=== PATIENT | male | born 1965 | race Caucasian/White ===

== ENCOUNTER → 2017-09-02 | Outpatient (CLI) | payer OTHER ==
[2017-09-02 17:52] LABS: URINE APPEARANCE CLEAR (CLEAR); URINE BILIRUBIN NEG (NEG); URINE COLOR YELLOW; URINE EPITHELIAL CELL AUTO 0-5 /lpf (0-5); URINE NITRITE NEG (NEG); URINE SPECIFIC GRAVITY 1.007 (1.000-1.030); UROBILINOGEN NEG (NEG); ZZUR CULT IF INDIC CLEAN CATCH NO
[2017-09-02 17:59] LABS: MANUAL MICROSCOPIC REQUIRED? NO; REVIEW REQ? NO
[2017-09-02 18:03] LABS: CREATININE, URINE 24.1 mg/dl; URINE TOTAL PROTEIN < 5.0 mg/dl (0-11.9)
== END | disposition home or self-care (01) ==
LOC: C.LAB1850 17:03
PROVIDERS: ATTEND Internal Medicine Nephrology
DX: R33.9 Retention of urine, unspecified (principal)

== ENCOUNTER 2020-04-09 06:11 | Inpatient (IN) ==
--- NOTE | 2020-03-24 14:48 | PAT Medication Instructions ---
Medication Instructions Date of Service March 24, 2020 Home Medications Medication Instructions Recorded blood sugar diagnostic #400 ea 07/16/19 aspirin 81 mg tablet,delayed release 81 mg PO QAM cholecalciferol (vitamin D3) 50 mcg (2,000 unit) capsule 2,000 units PO QAM cyclobenzaprine 5 mg tablet 5 mg PO TID PRN finasteride 5 mg tablet 5 mg PO QPM glucagon (human recombinant) 1 mg solution for injection 1 mg IM DIRECTED PRN lisinopril 40 mg tablet 40 mg PO QAM ammonium lactate 12 % topical cream 1 appln TOPICAL BID PRN ascorbic acid (vitamin C) 1,000 mg tablet 1,000 mg PO QAM insulin glargine [Lantus U-100 Insulin] 22 units SQ PM insulin lispro [Humalog U-100 Insulin] 50 units SQ AC levothyroxine 112 mcg PO 0200 Continue as directed levothyroxine 112 mcg PO 0200 STOP taking 24 hours before surgery ammonium lactate 12 % topical cream 1 appln TOPICAL BID PRN DO NOT take the morning of surgery insulin lispro [Humalog U-100 Insulin] 50 units SQ AC ascorbic acid (vitamin C) 1,000 mg tablet 1,000 mg PO QAM lisinopril 40 mg tablet 40 mg PO QAM cyclobenzaprine 5 mg tablet 5 mg PO TID PRN cholecalciferol (vitamin D3) 50 mcg (2,000 unit) capsule 2,000 units PO QAM Take morning of surgery With a small sip of water, OTHERWISE NOTHING TO EAT OR DRINK AFTER MIDNIGHT: glucagon (human recombinant) 1 mg solution for injection 1 mg IM DIRECTED PRN (if needed) aspirin 81 mg tablet,delayed release 81 mg PO QAM Take evening before surgery insulin lispro [Humalog U-100 Insulin] 50 units SQ AC insulin glargine [Lantus U-100 Insulin] 22 units SQ PM glucagon (human recombinant) 1 mg solution for injection 1 mg IM DIRECTED PRN (if needed) cyclobenzaprine 5 mg tablet 5 mg PO TID PRN (if needed) finasteride 5 mg tablet 5 mg PO QPM Other Notes If you have any questions please call us at [phone] or [phone] or [phone] or [phone]
--- NOTE | 2020-03-25 10:32 | Anesthesiology Consultation ---
Date of Service March 25, 2020 Assessment & Plan (1) Encounter for pre-operative examination: Chart Review Chart Review: Acceptable Risk for Surgery (Covid testing three days prior to surgery ) and Patient seen in Pre Admission Testing -FH of pseudocholinesterase deficiency- pt treated in the past as he has the deficiency and sux should be avoided Surgeon informed of hyperglycemia - Hgb A1C 8.1 (which is average glucose in 180s). Will leave to surgeon's discretion whether patient can proceed or not with surgery- okay from anesthesia standpoint and will check BSG AM of surgery. 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 Wears mask when around people but not usually around others. Did educate patient on Covid testing three days prior to surgery and to follow up with surgeon on this. Educated patient on importance of quarantine and social distancing both for himself and household members once Covid testing done until surgery. Teaching & Discussion Pre-Anesthesia Teaching/Discussion Notes: Instructed NPO after midnight before surgery,except medications with 15 cc of water. Medication instructions provided according to the [facility] guidelines. History Surgery Operation Date: 04/09/20 10:05 Proposed Procedures p L5-S1 Decompression Fusion, Spinal Cord Monitoring - Km Ribeiro, Height/Weight Height: 5 ft 10 in Weight: 83.3 kg Allergies Allergy/AdvReac Type Severity Reaction Status Date / Time succinylcholine Allergy Severe FAMILY HX Verified 03/17/20 10:48 SEE BELOW Iodinated Contrast Media Allergy Intermediate Vomiting Verified 03/17/20 10:48 morphine Allergy Intermediate Vomiting Verified 03/17/20 10:48 Medications Home Medications Medication Instructions Recorded Confirmed Last Taken blood sugar diagnostic #400 ea 07/16/19 01/29/20 Unknown aspirin 81 mg tablet,delayed 81 mg PO QAM 07/25/19 03/17/20 Unknown release cholecalciferol (vitamin D3) 50 2,000 units PO QAM cap 07/25/19 03/17/20 Unknown mcg (2,000 unit) capsule cyclobenzaprine 5 mg tablet 5 mg PO TID PRN tab 07/25/19 03/17/20 Unknown finasteride 5 mg tablet 5 mg PO QPM tab 07/25/19 03/17/20 Unknown glucagon (human recombinant) 1 mg 1 mg IM DIRECTED PRN 07/25/19 03/17/20 Unknown solution for injection insulin syringe-needle U-100 0.3 #10 ea 07/25/19 01/29/20 Unknown mL 31 gauge x 5/16" lisinopril 40 mg tablet 40 mg PO QAM #90 tab 07/25/19 03/17/20 Unknown ammonium lactate 12 % topical cream 1 appln TOPICAL BID PRN #1 gm 01/29/20 03/17/20 Unknown ascorbic acid (vitamin C) 1,000 mg 1,000 mg PO QAM tab 01/29/20 03/17/20 Unknown tablet insulin glargine [Lantus U-100 22 units SQ PM 03/17/20 03/17/20 Unknown Insulin] insulin lispro [Humalog U-100 50 units SQ AC 03/17/20 03/17/20 Unknown Insulin] levothyroxine 112 mcg PO 0200 03/17/20 03/17/20 Unknown Past Medical History Medical History Degenerative disc disease Diabetes mellitus type 1 Stable per patient GERD (gastroesophageal reflux disease) HX- stable and controlled Hyperlipidemia Hypertension Hypothyroidism Osteoarthritis Solitary right kidney Functioning well per patient - Stage II CKD Exercise / Class Metabolic Activity II 4-5 Yardwork/Stairs/Walk up hill (one flight of stairs - no chest pain or SOB ) Past Family History Family History Grandfather (Maternal) Heart disease Grandfather (Paternal) Heart disease Grandmother (Maternal) Diabetes Heart disease Family history of reaction to anesthesia PT'S GRANDMOTHER STOPPED BREATHING WITH SUCCINYCHOLINE DURING A PROCEDURE Grandmother (Paternal) Heart disease Uncle Prostate cancer Diabetes Past Surgical History Surgical History History of carpal tunnel repair BILAT History of cataract surgery BILAT History of cholecystectomy History of colonoscopy History of esophagogastroduodenoscopy (EGD) 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 History of Herson fundoplication Past Anesthesia History No Hx of Anesthesia Complications (PT TREATED PSEUDOCHOLINESTERASE DEFICIENT DUE TO FH) and Pseudocholinesterase Deficiency (FH- GRANDMOTHER) History of PONV No Hx of PONV and No Hx of Motion Sickness Social History Smoking Status: Former smoker Do You Dip or Chew Tobacco: No Smoking End Date: 2 YRS AGO Hx Alcohol Use: Yes alcohol intake frequency: holidays/special occasions only Hx Substance Use: No substance use type: does not use Review of Systems Mild allergy issues - environmental Hx of sleep study- no JONI Patient denies chest pain, shortness of breath, dyspnea on exertion, cough, wheezing, palpitations. No hx of seizures, stroke, HI, apnea/snoring. No hx of blood clots or blood transfusions Physical Exam Vital Signs VITALS BP 133/76 P 68 TEMP 97.9 SP02 99% RESP 16 Constitutional no acute distress ENMT Mouth: no chipped teeth Thyromental Distance: > or= 3.5 Finger Breadths (4.0) Mallampati Class: II Denies missing teeth Neck neck extension not limited Respiratory normal respiratory effort; no respiratory distress Auscultation: lungs clear to auscultation bilaterally; no wheezes Cardiovascular Rate/Rhythm: regular rate and regular rhythm Heart Sounds: no murmur Vessels: no carotid bruit Musculoskeletal Spine: no pain with cervical ROM Neurologic moves all extremities Psychiatric Orientation: alert Testing Laboratory Results 03/25/20 10:44 03/25/20 10:44 PT 10.7 Seconds (9.0-12.0) 03/25/20 10:44 INR 1.0 (0.9-1.1) 03/25/20 10:44 APTT 25.6 Seconds (21.0-31.0) 03/25/20 10:44 Hemoglobin A1c 8.1 % (4.5-5.6) H 03/25/20 10:44 Urine Color Yellow 03/25/20 10:44 Urine Appearance Clear (Clear) 03/25/20 10:44 Urine pH 6.0 (4.5-7.5) 03/25/20 10:44 Ur Specific [place] 1.015 (1.000-1.030) 03/25/20 10:44 Urine Protein Negative (Negative) 03/25/20 10:44 Urine Glucose (UA) 3+ (Negative) H 03/25/20 10:44 Urine Ketones Negative (Negative) 03/25/20 10:44 Urine Nitrite Negative (Negative) 03/25/20 10:44 Ur Leukocyte Esterase Negative (Negative) 03/25/20 10:44 Blood Type O Positive 03/25/20 10:44 Antibody Screen NEGATIVE 03/25/20 10:44 Electrocardiogram Date: 03/25/20 Findings: + NSR @ (64) Early repolarization Chest X-Ray Date: 03/25/20 Findings: + NAD
--- NOTE | 2020-03-25 11:15 | XRay Report ---
XR chest Pre-admission PA/Lat CLINICAL HISTORY: Preoperative evaluation. COMPARISON STUDY: No previous studies for comparison. FINDINGS: Lung volumes are normal. Lungs are clear. There is no pneumothorax or pleural effusion. Car diac size is normal. Mediastinal contours are normal. There is no evidence for pulmonary edema. IMPRESSION: No acute cardiopulmonary findings. ACT 112: Negative or not required by law. Electronically signed by: Radhames Magana M.D. 03/25/2020 11:14 AM
[2020-03-25 12:07] LABS: Basophils # (auto) 0.04 K/uL (0-0.2); Basophils % (auto) 0.5 %; Eosinophils # (auto) 0.35 K/uL (0-0.5); Eosinophils % (auto) 4.7 %; Hematocrit (blood only) 43.4 % (42-52); Hemoglobin 14.5 g/dL (14.0-18.0); Immature Granulocytes # (auto) 0.03 K/uL (0.00-0.02); Immature Granulocytes % (auto) 0.4 %; Lymphocytes # (auto) 1.79 K/uL (1.2-3.4); Lymphocytes % (auto) 24.1 %; Mean Corpuscular Hemoglobin 30.4 pg (25-34); Mean Corpuscular Hgb Conc 33.4 g/dL (32-36); Mean Platelet Volume 11.6 fL (7.4-10.4); Monocytes # (auto) 0.78 K/uL (0.11-0.59); Monocytes % (auto) 10.5 %; Neutrophils # (auto) 4.43 K/uL (1.4-6.5); Neutrophils % (auto) 59.8 %; Platelet Count 236 K/uL (130-400); RDW Coefficient of Variation 13.7 % (11.5-14.5); RDW Standard Deviation 45.6 fL (36.4-46.3); Red Blood Count 4.77 M/uL (4.7-6.1); White Blood Count 7.42 K/uL (4.8-10.8)
[2020-03-25 12:08] LABS: Appearance Urine Clear (Clear); Bilirubin Urine Negative (Negative); Blood Urine Negative (Negative); Color Urine Yellow; Glucose Urine UA 3+ (Negative); Ketones Urine Negative (Negative); Leukocyte Esterase Urine Negative (Negative); Nitrite Urine Negative (Negative); Protein Urine Negative (Negative); Specific Gravity Urine 1.015 (1.000-1.030); Urobilinogen Urine Negative (Negative)
[2020-03-25 12:18] LABS: Partial Thromboplastin Ratio 0.9; Partial Thromboplastin Time 25.6 Seconds (21.0-31.0); Prothrombin Time 10.7 Seconds (9.0-12.0)
[2020-03-25 12:20] LABS: Estimated Average Glucose 186 mg/dl; Hemoglobin A1C 8.1 % (4.5-5.6)
[2020-03-25 12:31] LABS: BUN Creatinine Ratio 12.3 (10-20); Calcium 9.1 mg/dl (8.5-10.1); Creatinine Clr Calc Pharmacy 76.7 ml/min; Est GFR (African American) 85.6; Est GFR (Non-African American) 73.8; Potassium 4.5 mmol/L (3.5-5.1)
[2020-03-25 12:43] LABS: Beta-Hydroxybutyrate 2.28 mg/dl (0.2-2.81)
--- NOTE | 2020-03-25 17:09 | Electrocardiogram Report ---
Test Reason : Blood Pressure : / mmHG Vent. Rate : 064 BPM Atrial Rate : 064 BPM P-R Int : 134 ms QRS Dur : 088 ms QT Int : 378 ms P-R-T Axes : 070 060 056 degrees QTc Int : 389 ms Normal sinus rhythm Early repolarization Normal ECG No previous ECGs available Confirmed by Chino Atkinson ([id number]) on 03/25/2020 5:09:39 PM Referred By: Km Ribeiro Confirmed By:Chino Atkinson
[~2020-04-09 06:11] MED LIST: ACETAMINOPHEN 500 MG TAB PO SCH; CEFAZOLIN 2000MG 2,000 MG/15 ML SYR IV SCH; CeleBREX 200 MG CAP PO SCH; GABAPENTIN 600 MG DOSE PO SCH; LR 15ML/HR IV SCH
[2020-04-09] MEDS ORDERED: PROPOFOL IV EMULSION 10 MG/ML 20 ML VIAL IV ONE (06:40)
[2020-04-09] MEDS ORDERED: DEXAMETHASONE SOD INJ 4 MG/ML VIAL ONE (06:40)
[2020-04-09] MEDS ORDERED: LIDOCAINE HCL 2% 2 ML VIAL/AMP(20MG/ML) INFIL ONE (06:40)
[2020-04-09] MEDS ORDERED: GLYCOPYRROLATE 0.2 MG/ML VIAL ONE (06:40)
[2020-04-09] MEDS ORDERED: NEOSTIGMINE METHYLSULFATE 5 MG/5 ML SYR ONE (06:40)
[2020-04-09] MEDS ORDERED: ONDANSETRON INJ 2 MG/ML 2 ML VIAL ONE (06:40)
[2020-04-09] MEDS ORDERED: fentaNYL citrate 100 MCG/2 ML VIAL ONE ×2 (06:41)
[2020-04-09] MEDS ORDERED: MIDAZOLAM HCL 1 MG/ML 2ML VIAL ONE (06:41)
[2020-04-09] MEDS ORDERED: HYDROmorphone INJ 2 MG/ML SYR/VIAL ONE (06:41)
[2020-04-09] MEDS ORDERED: BACITRACIN INJ 50,000 UNIT VIAL ONE (07:03)
[2020-04-09] MEDS ORDERED: BUPIVACAINE/EPINEPHRINE 0.25% 1:200,000 30 ML VIAL ONE (07:03)
[2020-04-09] MEDS ORDERED: INSULIN ASPART PER UNIT SC STA (07:04)
[2020-04-09] MEDS ORDERED: INSULIN ASPART PER UNIT ONE (07:07)
[2020-04-09] MEDS ORDERED: PROMETHAZINE HCL 6.25 MG in SODIUM CHLORIDE 0.9% 50 ML IV PRN (07:14)
[2020-04-09] MEDS ORDERED: ePHEDrine sulfate 50 MG/ML AMP IV PRN (07:14)
[2020-04-09] MEDS ORDERED: ONDANSETRON INJ 2 MG/ML 2 ML VIAL IV PRN ×2 (07:14→11:14)
[2020-04-09] MEDS ORDERED: HYDROmorphone INJ 2 MG/ML SYR/VIAL IV PRN (07:14)
[2020-04-09] MEDS ORDERED: fentaNYL citrate 100 MCG/2 ML VIAL IV PRN (07:14)
[2020-04-09] MEDS ORDERED: ATROPINE SULFATE 0.1 MG/ML 10ML SYR IV PRN (07:14)
--- NOTE | 2020-04-09 07:34 | History & Physical Bridge Note ---
Date of Service April 09, 2020 History & Physical Bridge Note I have examined the patient, reviewed the History & Physical and in the interval since the performance of the History & Physical I have noted the following changes of clinical significance: no changes noted
--- NOTE | 2020-04-09 07:35 | History & Physical Report ---
Date of Service April 09, 2020 Assessment & Plan (1) Neurogenic claudication due to lumbar spinal stenosis: L5-S1 decompression fusion Present on Admission?: Yes History of Present Illness Chief Complaint: Back and leg pain Primary Care Provider: Bonifacio Caputo This is a 55-year-old male who presents with chronic persistent back and leg pain. Failing extensive course of nonoperative care is here for surgical invention. Allergies Allergy/AdvReac Type Severity Reaction Status Date / Time succinylcholine Allergy Severe FAMILY HX Verified 04/09/20 06:40 SEE BELOW Iodinated Contrast Media Allergy Intermediate Vomiting Verified 04/09/20 06:40 morphine Allergy Intermediate Vomiting Verified 04/09/20 06:40 meperidine [From Demerol] AdvReac Intermediate hallicinati Verified 04/09/20 07:18 ons Home Medications Home Medications Medication Instructions Recorded Confirmed Type blood sugar diagnostic #400 ea 07/16/19 01/29/20 Rx aspirin 81 mg tablet,delayed 81 mg PO QAM 07/25/19 04/09/20 History release cholecalciferol (vitamin D3) 50 2,000 units PO QAM cap 07/25/19 04/09/20 History mcg (2,000 unit) capsule cyclobenzaprine 5 mg tablet 5 mg PO TID PRN tab 07/25/19 04/09/20 History finasteride 5 mg tablet 5 mg PO QPM tab 07/25/19 04/09/20 History lisinopril 40 mg tablet 40 mg PO QAM #90 tab 07/25/19 04/09/20 History ammonium lactate 12 % topical cream 1 appln TOPICAL BID PRN #1 gm 01/29/20 04/09/20 History ascorbic acid (vitamin C) 1,000 mg 1,000 mg PO QAM tab 01/29/20 04/09/20 History tablet insulin glargine [Lantus U-100 22 units SQ PM 03/17/20 04/09/20 History Insulin] insulin lispro [Humalog U-100 5 units SQ AC 03/17/20 04/09/20 History Insulin] levothyroxine 112 mcg PO 0200 03/17/20 04/09/20 History glucagon (human recombinant) 1 mg 1 mg IM DIRECTED PRN #1 ea 03/31/20 04/09/20 Rx solution for injection insulin syringe-needle U-100 0.3 #400 ea 03/31/20 Rx mL 31 gauge x 5/16" Glucosamine 2 tab PO DAILY 04/09/20 04/09/20 History Past Med/Surg History Medical History Degenerative disc disease Diabetes mellitus type 1 Stable per patient GERD (gastroesophageal reflux disease) HX- stable and controlled Hyperlipidemia Hypertension Hypothyroidism Osteoarthritis Solitary right kidney Functioning well per patient - Stage II CKD Surgical History History of carpal tunnel repair BILAT History of cataract surgery BILAT History of cholecystectomy History of colonoscopy History of esophagogastroduodenoscopy (EGD) 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 History of Herson fundoplication Family History Grandfather (Maternal) Heart disease Grandfather (Paternal) Heart disease Grandmother (Maternal) Diabetes Heart disease Family history of reaction to anesthesia PT'S GRANDMOTHER STOPPED BREATHING WITH SUCCINYCHOLINE DURING A PROCEDURE Grandmother (Paternal) Heart disease Uncle Prostate cancer Diabetes Social History (Updated 01/30/20 @ 17:30 by Jacinto Jamison PA-C) Preferred Language: Greenlandic Communication Ability: Effective Underwater Hunter Trapper Required: No Beliefs That Will Affect Care: None Current Living Situation: Spouse Other Information That Helps Us Care for You: No Feels Safe at Home: Yes Safety Concerns: Feels Safe At This Time Smoking Status: Former smoker Do You Dip or Chew Tobacco: No ; Smoking End Date: 2 YRS AGO ; Second Hand Exposure: Yes ; Tobacco Cessation Education Requ ested by Patient: No Hx Alcohol Use: Yes Hx Substance Use: No Physical Exam Physical Exam: Patient is alert and oriented neurologically intact. Heart regular rate and rhythm. Lungs clear to auscultation. Results & Data Vital Signs (Past 12 Hours) Vital Signs Temp Pulse Resp BP Pulse Ox 04/09/20 07:19 36.6 C 70 18 154/86 H 99
[2020-04-09] MEDS ORDERED: FLOSEAL HEMOSTATIC MATRIX 10ML TOP ONE (08:26)
--- NOTE | 2020-04-09 09:21 | Operative Report ---
Post Operative Report Pre & Post Diagnosis Operation Date: 04/09/20 07:45 Pre-Op Diagnosis: LUMBAR SPINAL STENOSIS W NEUROGENIC CLAUDICATION Post-Op Diagnosis: LUMBAR SPINAL STENOSIS W NEUROGENIC CLAUDICATION I identified the patient and participated in the time-out.: Yes Procedure Operation Date: 04/09/20 07:45 Actual Procedures #1 decompression with bilateral medial facetectomies foraminotomies L5-S1. #2 posterior spinal fusion L5-S1 #3 posterior instrumentation L5-S1. #4 interbody fusion L5-S1. #5 placement peek interbody cage 11 x 26 mm L5-S1. #6 placement locally harvested morselized autograft in the posterior lateral gutters. #7 placement infuse collagen sponge, master graft in the posterior gutters and osteopenia by space. Surgeon Km Ribeiro, Acid Changer Angie Suárez Estimated Blood Loss 50 Findings Consistent with Post-Op Diagnosis Specimens None Indications This is a 55-year-old male presents with worsening back and leg symptoms. After failing extensive course of nonoperative care is here for surgical invention. Description of Procedure Patient was met with identified informed consent obtained. Patient was then taken to the operative suite underwent intubation placed in a prone position Korey table on top Edy frame. All bony prominences well-padded eyes inspected to ensure no external pressure placed upon the. This point the lumbar spine was prepped and draped in normal sterile fashion. Sharp dissection with the assistance of Bovie cautery was performed until exposing the lamina and transverse process of L5 and sacral ala bilaterally. From a caudal cephalad fashion complete laminectomy of L5 including bilateral medial facetectomies and foraminotomies were performed to address significant neural compression. Pedicle screws were then placed in L4-5 and S1 levels bilaterally with assistance of fluoroscopy and appropriately sized mick placed. By way of a transforaminal approach on the right complete discectomy of L5-S1 was performed endplates curetted to subcortical bleeding bone and a 11 x 26 mm peek cage filled with osteo-bone graft tapped in position. The rods were then locked into final position bilaterally. The transverse processes of L5 and sacral ala burred to subcortical bleeding bone. Infuse collagen sponge mass graft local autograft was then placed in the posterior gutters. 15 round TRAN drain inserted. The incision was then closed with 1 Vicryl in the fascia 2-0 Vicryl subcutaneously and 4 Monocryl for final skin closure. Steri-Strip sterile dressing was placed. Patient will continue to PACU stable addition. Please note spinal cord monitoring was utilized that the procedure no changes noted. Lastly Angie Suárez was present at the entire procedure involved the patient positioning complex portions of the surgery and final skin closure. I attest to the content of the Intraoperative Record and any orders documented therein. Any exceptions are noted below.
--- NOTE | 2020-04-09 10:04 | Fluoroscopy Report ---
LUMBAR SPINE, INTRAOPERATIVE FLUOROSCOPY HISTORY: L5-S1 decompression and fusion. FLUOROSCOPY TIME: 21 seconds. FINDINGS: Intraoperative fluoroscopy was provided for the lumbar spine. 2 fluoroscopic spot images we re obtained. Posterior decompression fusion at L5-S1 with pedicle screws and rods. The hardware appea rs intact. IMPRESSION: Fluoroscopy provided for a L5-S1 posterior decompression and fusion. ACT 112: Negative or not required by law. Electronically signed by: Russell Alamo M.D. 04/09/2020 10:03 AM
--- NOTE | 2020-04-09 10:29 | Anesthesiology Progress Note ---
Date of Service April 09, 2020 Anesthesia Post Procedure Vital Signs Vital Signs: Temp Pulse Pulse Resp BP BP Pulse Ox 04/09/20 10:20 36.8 C 102 H 14 142/78 H 97 04/09/20 10:10 95 H 16 146/77 H 97 04/09/20 10:00 96 H 15 132/71 98 04/09/20 09:50 93 H 14 142/73 H 99 04/09/20 09:40 36.8 C 91 H 16 141/73 H 99 04/09/20 07:19 36.6 C 70 18 154/86 H 99 Pain Intensity Right Leg: Pain Intensity: 4 Transfer of Care Handoff Completed per policy Notes Mental Status: alert / awake / arousable Patient Amnestic to Procedure: Yes Nausea / Vomiting: adequately controlled Pain: adequately controlled Airway Patency, RR, SpO2: stable & adequate BP & HR: stable & adequate Hydration State: stable & adequate Anesthetic Complications: no major complications apparent
[2020-04-09] MEDS: SODIUM CHLORIDE 0.9% 1000ML 1,000 ML IV SCH ×2 (11:00→20:37)
[2020-04-09] MEDS ORDERED: LORazepam 0.5 MG TAB PO PRN (11:14)
[2020-04-09] MEDS ORDERED: PROMETHAZINE HCL 12.5 MG in SODIUM CHLORIDE 0.9% 50 ML IV PRN (11:14)
[2020-04-09] MEDS ORDERED: NALOXONE HCL 0.4 MG/1 ML VIAL/CARP IV PRN (11:14)
[2020-04-09] MEDS ORDERED: METOCLOPRAMIDE HCL INJ 5 MG/ML 2 ML VIAL IV PRN (11:14)
[2020-04-09] MEDS ORDERED: LORazepam 0.5 MG/1 ML VIAL IV PRN (11:14)
[2020-04-09] MEDS ORDERED: DO NOT ADMINISTER PNEUMOCOCCAL VACCINE PRN (11:14)
[2020-04-09] MEDS ORDERED: DO NOT ADMINISTER FLU VACCINE PRN (11:14)
[2020-04-09] MEDS ORDERED: ACETAMINOPHEN 500 MG TAB PO PRN (11:14)
[2020-04-09] MEDS ORDERED: OXYCODONE HCL IR 5 MG TAB (IMMEDIATE RELEASE) PO PRN (11:14)
[2020-04-09] MEDS ORDERED: bisacodyL 10 MG SUPP PR PRN (11:14)
[2020-04-09] MEDS ORDERED: ACETAMINOPHEN 1,000 MG/100 ML VIAL IV PRN (11:14)
[2020-04-09] MEDS ORDERED: CYCLOBENZAPRINE HCL 5 MG TAB PO PRN (11:14)
[2020-04-09] MEDS ORDERED: ALUMINUM/MAGNESIUM SUSP 30 ML UDC PO PRN (11:14)
[2020-04-09] MEDS ORDERED: SOD PHOSPHATE/SOD BIPHOSPHATE ENEMA 132 ML BTL PR PRN (11:14)
[2020-04-09] MEDS ORDERED: ONDANSETRON 4 MG OD TAB PO PRN (11:14)
[2020-04-09] MEDS ORDERED: FAMOTIDINE 20 MG TAB PO PRN (11:14)
[2020-04-09] MEDS ORDERED: MAGNESIUM HYDROXIDE SUSP 30 ML UDC PO PRN (11:14)
[2020-04-09] MEDS ORDERED: TRAMADOL HCL 50 MG TABLET PO PRN (11:14)
[2020-04-09] MEDS ORDERED: HYDROmorphone INJ 0.5 MG/0.5 ML SYR IV PRN (11:14)
[2020-04-09] MEDS ORDERED: PHARMACY GLYCEMIC MGMT CONSULT PRN (11:25)
[2020-04-09] MEDS ORDERED: GLUCOSE 10 TABS/TUBE PO PRN (11:45)
[2020-04-09] MEDS ORDERED: DEXTROSE 50% 50 ML SYRINGE IV PRN (11:45)
[2020-04-09] MEDS ORDERED: GLUCOSE 40% GEL 15 GM TUBE PO PRN (11:45)
[2020-04-09] MEDS ORDERED: GLUCAGON FOR INJ 1 MG VIAL IM PRN (11:45)
[2020-04-09] MEDS ORDERED: INSULIN GLARGINE SOLOSTAR 100 UNITS/ML 3 ML PEN SC ONE (12:00)
[2020-04-09] MEDS ORDERED: INSULIN ASPART 100 UNITS/ML 3 ML PEN SC SCH (12:00)
[2020-04-09] MEDS: KETOROLAC 30 MG/ML VIAL IV SCH ×3 (12:35→23:26)
--- NOTE | 2020-04-09 13:55 | Pharmacy Report ---
Glycemic Control Consultation - Date of Service April 09, 2020 - Scope Scope: Glycemic Pharmacist consulted for glycemic control and to write orders per [facility] inpatient glycemic control protocol. - Objective Weight: 82.2 kg Accuchecks BSG (last 24hrs): HbA1c: Hemoglobin A1c 8.1 % (4.5-5.6) H 03/25/20 10:44 - Recent Pertinent Medications Outpatient Anti-diabetic Regimen: * Lantus 22 units SQ QPM * Humalog 5 units AC + CR: * 1 unit : 5 gm CHO for breakfast * 1 unit : 10 gm CHO for lunch * 1 unit : 15 gm CHO for supper * A1c = 8.1 % from 03/25/20, up from 7.6% in December 2019 Risk Factors for Insulin Resistance: * Steroids: * Dexamethasone 8 mg IV preop * Recent Surgery: * POD #0 L5-S1 decompression & fusion * Diet: * T2DM - Assessment & Plan Assessment & Plan: ASSESSMENT: * 55 yo M admitted secondary to degenerative disc disease to undergo a spinal decompression and fusion * PMHx significant for T1DM, HLD, HTN, osteoarthritis, CKD-II * A1c not at goal as an outpatient * Patient gave himself 20 units of Lantus the evening prior to surgery. Admi ssion BSG was 334 mg/dL with a repeat of 324 mg/dL. Patient received 8 units of Novolog x 1 pre-op. * Immediate postop BSG was 251 mg/dL. He was ordered a T1DM/Clear liquid diet for lunch. No further steroid doses expected. Lunchtime BSG was 291 mg/dL. Gave patient 1.2 x his home basal dose with lunch to attempt to control steroid-induced hyperglycemia in a type 1 diabetic. Started with an aggressive bolus insulin regimen of CF/CR based on weight and stress of 3. * Instructed RN to take pt's BSG at 1400 which would be 2 hours after Lantus and Novolog were given to ensure patient's BSG is trending down. If BSG is not trending down, may need to treat hyperglycemia with IV insulin boluses. * Will continue with every 4 hour accuchecks from the time being. Instructed RN to give patient CF coverage with check at 1600 and then when he eats dinner she does not have to check BSG and can just administer CR insulin. * Will attempt to transition patient back to QPM basal insulin starting tomorrow. * ADA & AACE recommend a goal blood sugar range 140-180 mg/dl for the majority of critically ill & non-critically ill patients. However, more stringent targets may be selected in individual cases. Will utilize more stringent goal of 110-140mg/dl based on patient age & comorbidities. Additionally, tighter glycemic control is warranted to facilitate wound/infection healing. PLAN FOR INPATIENT GLYCEMIC CONTROL: * Basal insulin * Lantus 25 units SQ x 1 * Bolus insulin * NovoLog per scale ACHS or Q6hrs while NPO * Goal Range: Low 110 mg/dL - High 140 mg/dL * Correction Factor: 20 mg/dL/unit * Nutritional / Prandial insulin per carb ratio of 1 unit per 7 grams CHO consumed * Please note that the plan above was derived based on current level of insulin resistance and hospital stress. These recommendations are appropriate for inpatient admission only. Plan of care upon discharge will need to be reassessed to avoid potential outpatient hypo/hyperglycemia. Thank you.
[2020-04-09] MEDS ORDERED: INSULIN HUMAN REGULAR PER UNIT 8 UNITS in SYRINGE 7.92 ML IV STA (14:17)
[2020-04-09] MEDS: CEFAZOLIN 2000MG 2,000 MG/15 ML SYR IV SCH ×2 (16:07→23:26)
[2020-04-09] MEDS ORDERED: SEVERE STRESS LEVEL ONE (16:17)
[2020-04-09] MEDS ORDERED: INSULIN PROTOCOL GOAL RANGE ONE (16:17)
[2020-04-09] MEDS ORDERED: INSULIN HUMAN REGULAR IV BOLUS 3 UNITS in SYRINGE 0 ML IV ONE (16:45)
[2020-04-09] MEDS ORDERED: INSULIN REGULAR 250 UNITS in SODIUM CHLORIDE 0.9% 247.5 ML IV SCH (16:45)
[2020-04-09] MEDS: INSULIN ASPART 100 UNITS/ML 3 ML PEN SC SCH ×2 (18:33→20:36)
[2020-04-09] MEDS: DOCUSATE SODIUM/SENNA 50/8.6MG TAB PO SCH (21:34)
[2020-04-09] MEDS: FINASTERIDE 5 MG TAB PO SCH (21:34)
--- NOTE | 2020-04-09 21:49 | Hospitalist Consultation ---
Date of Consultation April 09, 2020 Assessment & Plan (1) Neurogenic claudication due to lumbar spinal stenosis: Status post L5-S1 spinal fusion performed by Dr. Ribeiro earlier today. Pain management as per surgery (2) Vision changes: Patient appears to be still waking up from anesthesia. No eye pain. Generalized bilateral vision blurring without other focal neurology. Suspect this is secondary to his anesthesia and asked his nurse to call ane sthesiology to assess. If not felt secondary to anesthesia or does not improve then will get labs. No abdominal pain, nausea, hypotension, shortness of breath or increased respiratory rate to suggest DKA and glucose at relatively normal level for him. (3) Solitary right kidney: Monitor BMP with AM labs. IV fluids as per surgery. (4) Type 1 diabetes mellitus: Pharmacy consulted for glycemic management per Dr Ribeiro Patient reports taking reduced dose of Lantus (20 units last night) HbA1C 8.1 [03/25/20, no need to repeat] Noted hyperglycemia in similar range to pre-op labs without ketones present in urine or blood In his log book he tends to fluctuate wildly between 60-360 with just recent measurements over the past 2 weeks. (5) Hypothyroidism: No prior TSH available but unlikely current measurement would be relevant given surgery today. Continue levothyroxine 112 mcg PO daily (6) Hypertension: Continue lisinopril 40mg PO QAM as long as BP stable overnight (7) DVT prophylaxis: per surgery Thank you for the consult. We will continue to see while he is admitted. History of Present Illness Reason for Consultation: Routine medical management Attending Physician: Km Ribeiro, DO History of Present Illness Nate Hopson is a 55 year old male with type 1 diabetes mellitus and solitary kidney here for elective spinal fusion performed by Dr Ribeiro due to lumbar spinal stenosis with neurogenic claudication. When seen the patient was recently out of surgery and still waking up from the anesthesia. Some concern over his vision after coming back from surgery. He does report a history of hitting his head on the right side and having occasional flashes of light on this side, no known diabetic retinopathy as per the patient. He does have a history of cataracts in both eyes (one for near, one for far vision). Currently he feels bilateral vision blurring in both eyes, no eye pain, no sudden increase in floaters or flashing lights, no vision loss. Feels his eyesight is slowly improving. No issues prior to the surgery. Allergies Allergy/AdvReac Type Severity Reaction Status Date / Time succinylcholine Allergy Severe FAMILY HX Verified 04/09/20 06:40 SEE BELOW Iodinated Contrast Media Allergy Intermediate Vomiting Verified 04/09/20 06:40 morphine Allergy Intermediate Vomiting Verified 04/09/20 06:40 meperidine [From Demerol] AdvReac Intermediate hallicinati Verified 04/09/20 07:18 ons Home Medications Home Medications Medication Instructions Recorded Confirmed Type blood sugar diagnostic #400 ea 07/16/19 01/29/20 Rx aspirin 81 mg tablet,delayed 81 mg PO QAM 07/25/19 04/09/20 History release cholecalciferol (vitamin D3) 50 2,000 units PO QAM cap 07/25/19 04/09/20 History mcg (2,000 unit) capsule cyclobenzaprine 5 mg tablet 5 mg PO TID PRN tab 07/25/19 04/09/20 History finasteride 5 mg tablet 5 mg PO QPM tab 07/25/19 04/09/20 History lisinopril 40 mg tablet 40 mg PO QAM #90 tab 07/25/19 04/09/20 History ammonium lactate 12 % topical cream 1 appln TOPICAL BID PRN #1 gm 01/29/20 04/09/20 History ascorbic acid (vitamin C) 1,000 mg 1,000 mg PO QAM tab 01/29/20 04/09/20 History tablet insulin glargine [Lantus U-100 22 units SQ PM 03/17/20 04/09/20 History Insulin] insulin lispro [Humalog U-100 5 units SQ AC 03/17/20 04/09/20 History Insulin] levothyroxine 112 mcg PO 0200 03/17/20 04/09/20 History glucagon (human recombinant) 1 mg 1 mg IM DIRECTED PRN #1 ea 03/31/20 0 04/09/20 Rx solution for injection insulin syringe-needle U-100 0.3 #400 ea 03/31/20 Rx mL 31 gauge x 5/16" Glucosamine 2 tab PO DAILY 04/09/20 04/09/20 History oxycodone 5 mg PO Q6H PRN #20 tab 04/10/20 Rx tramadol 50 mg PO Q6H PRN #30 tab 04/10/20 Rx Patient History Medical History Degenerative disc disease Diabetes mellitus type 1 Stable per patient GERD (gastroesophageal reflux disease) HX- stable and controlled Hyperlipidemia Hypertension Hypothyroidism Osteoarthritis Solitary right kidney Functioning well per patient - Stage II CKD Surgical History History of carpal tunnel repair BILAT History of cataract surgery BILAT History of cholecystectomy History of colonoscopy History of esophagogastroduodenoscopy (EGD) 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 History of Herson fundoplication Family History Grandfather (Maternal) Heart disease Grandfather (Paternal) Heart disease Grandmother (Maternal) Diabetes Heart disease Family history of reaction to anesthesia PT'S GRANDMOTHER STOPPED BREATHING WITH SUCCINYCHOLINE DURING A PROCEDURE Grandmother (Paternal) Heart disease Uncle Prostate cancer Diabetes Social History (Updated 01/30/20 @ 17:30 by Jacinto Jamison PA-C) Preferred Language: Samoan Communication Ability: Effective Conservation Or Heritage Architect Required: No Beliefs That Will Affect Care: None Current Living Situation: Spouse Other Information That Helps Us Care for You: No Feels Safe at Home: Yes Safety Concerns: Feels Safe At This Time Smoking Status: Former smoker Do You Dip or Chew Tobacco: No ; Smoking End Date: 2 YRS AGO ; Second Hand Exposure: Yes ; Tobacco Cessation Education Requ ested by Patient: No Hx Alcohol Use: Yes Hx Substance Use: No Review of Systems Review of Systems: All systems reviewed & are unremarkable except as noted in HPI & below Physical Exam Constitutional: well developed and well nourished; no acute distress Eyes: PERRL, conjunctivae normal, anicteric sclerae EOM intact bilaterally (Without diplopia); + abnormal visual field confrontation (General blurring of vision bilaterally) ENMT: external ear and nose normal, oropharynx normal Neck: trachea midline Respiratory: normal respiratory effort, lungs clear to auscultation Cardiovascular: RRR, no murmur, no edema Gastrointestinal (Abdomen): normal bowel sounds, soft, nontender, no hepatosplenomegaly Musculoskeletal: no cyanosis or clubbing, extremities motor strength 5/5 Skin: no rashes, warm and dry Neurologic: moves all extremities and awake; no focal motor deficits and not confused Motor/Sensory: no tremor and no pronator drift Cranial Nerves: PERRL, EOM intact bilaterally, normal facial strength, tongue midline and no nystagmus Psychiatric: A+Ox3, euthymic affect Results & Data Results & Data ([facility]) Vital Signs (Past 12 Hours) Vital Signs Temp Pulse Pulse Resp BP BP Pulse Ox 04/09/20 13:13 36.3 C L 97 H 15 141/76 H 97 04/09/20 12:05 36.6 C 103 H 18 126/66 98 04/09/20 11:25 36.4 C L 85 16 132/68 91 04/09/20 11:00 36.4 C L 89 14 149/75 H 95 04/09/20 10:45 97 H 12 156/70 H 97 04/09/20 10:30 87 13 144/83 H 97 04/09/20 10:20 36.8 C 102 H 14 142/78 H 97 04/09/20 10:10 95 H 16 146/77 H 97 04/09/20 10:00 96 H 15 132/71 98 04/09/20 09:50 93 H 14 142/73 H 99 04/09/20 09:40 36.8 C 91 H 16 141/73 H 99 04/09/20 07:19 36.6 C 70 18 154/86 H 99 PG Care Time/CCT Total # of Minutes Spent Total Time Spent with Patient: Total time spent is greater than 50% in coordination of care (as documented) at patient's floor/unit and/or counseling patient: Coding Level of Care Code 26186 Inpt Consult Level 5 Diagnoses Neurogenic claudication due to lumbar spinal stenosis M48.062 Vision changes H53.9 Solitary right kidney Q60.0 Type 1 diabetes mellitus E10.9 Hypothyroidism E03.9 Hypertension I10 DVT prophylaxis Z29.9
[2020-04-10] MEDS: CARBOHYDRATES FOR HYPOGLYCEMIA PO PRN ×5 (01:45→23:25)
[2020-04-10 05:33] LABS: Basophils # (auto) 0.01 K/uL (0-0.2); Basophils % (auto) 0.1 %; Eosinophils # (auto) 0.05 K/uL (0-0.5); Eosinophils % (auto) 0.4 %; Hematocrit (blood only) 37.9 % (42-52); Immature Granulocytes # (auto) 0.03 K/uL (0.00-0.02); Immature Granulocytes % (auto) 0.2 %; Lymphocytes # (auto) 1.65 K/uL (1.2-3.4); Lymphocytes % (auto) 13.5 %; Mean Corpuscular Hemoglobin 28.9 pg (25-34); Mean Corpuscular Hgb Conc 31.7 g/dL (32-36); Mean Corpuscular Volume 91.3 fL (80-100); Monocytes # (auto) 1.12 K/uL (0.11-0.59); Monocytes % (auto) 9.2 %; Neutrophils # (auto) 9.37 K/uL (1.4-6.5); Neutrophils % (auto) 76.6 %; Platelet Count 192 K/uL (130-400); RDW Coefficient of Variation 13.8 % (11.5-14.5); RDW Standard Deviation 46.4 fL (36.4-46.3); Red Blood Count 4.15 M/uL (4.7-6.1); White Blood Count 12.23 K/uL (4.8-10.8)
[2020-04-10] MEDS ORDERED: AD VAN IV SCH (05:45)
[2020-04-10] MEDS ORDERED: SODIUM CHLOR 0.9% IV SCH (05:45)
[2020-04-10] MEDS: LEVOTHYROXINE SODIUM 112 MCG TABLET PO SCH (05:54)
[2020-04-10] MEDS: KETOROLAC 30 MG/ML VIAL IV SCH (05:55)
[2020-04-10] MEDS: POLYETHYLENE (MIRALAX) 17 GM PACK PO SCH ×4 (05:55→23:29)
[2020-04-10 05:58] LABS: BUN Creatinine Ratio 13.2 (10-20); Calcium 8.2 mg/dl (8.5-10.1); Creatinine Clr Calc Pharmacy 82.7 ml/min; Est GFR (African American) 93.7; Est GFR (Non-African American) 80.8; Potassium 4.2 mmol/L (3.5-5.1)
[2020-04-10] MEDS: HYDROmorphone INJ 1 MG/ML SYRINGE IV PRN ×2 (08:01→20:29)
[2020-04-10] MEDS: INSULIN ASPART 100 UNITS/ML 3 ML PEN SC SCH ×4 (08:08→21:04)
[2020-04-10] MEDS ORDERED: GLUCOSAMINE PO SCH (09:00)
[2020-04-10] MEDS: ASCORBIC ACID 500 MG TAB PO SCH (09:12)
[2020-04-10] MEDS: lisinopriL 40 MG TAB PO SCH (09:12)
[2020-04-10] MEDS: CHOLECALCIFEROL 1,000 UNITS 25 MCG TAB PO SCH (09:12)
[2020-04-10] MEDS: ASPIRIN 81 MG ECTAB PO SCH (09:12)
[2020-04-10] MEDS ORDERED: HYDROCODONE/ACETAMOPHEN 5/325MG TAB PO PRN (09:48)
[2020-04-10] MEDS ORDERED: INSULIN ASPART 100 UNITS/ML 3 ML PEN SC ONE (10:15)
[2020-04-10] MEDS ORDERED: INSULIN GLARGINE SOLOSTAR 100 UNITS/ML 3 ML PEN SC ONE (10:15)
--- NOTE | 2020-04-10 11:46 | Orthopedic Progress Note ---
Date of Service April 10, 2020 Assessment & Plan (1) Neurogenic claudication due to lumbar spinal stenosis: At this time we will continue physical therapy monitor his TRAN output anticipate possible discharge home tomorrow. Present on Admission?: Yes Admission and Anticipated Discharge Date Admission Date: April 09, 2020 Subjective Back pain controlled leg symptoms markedly improved. Physical Exam Physical Exam: Patient is ambulating without difficulty. Skin strength testing. Results & Data ([facility]) Vital Signs (Past 12 Hours) Vital Signs Temp Pulse Resp BP Pulse Ox 04/10/20 07:24 37.0 C 75 16 147/81 H 98 04/10/20 02:43 36.8 C 92 H 16 125/69 97
--- NOTE | 2020-04-10 11:53 | Pharmacy Report ---
Pharmacy Glycemic Short Note 2 - Date of Service April 10, 2020 - Glycemic Short BSG Results (Last 24 hours): 04/09/20 04/09/20 04/09/20 12:10 14:10 16:08 Glucose POC Glucose 291 H 308 H* 335 H* 04/09/20 04/09/20 04/09/20 16:09 18:20 19:31 Glucose POC Glucose 373 H* 308 H* 294 H 04/09/20 04/09/20 04/09/20 20:31 21:28 22:22 Glucose POC Glucose 202 H 171 H 161 H 04/09/20 04/09/20 04/10/20 23:20 23:39 00:44 Glucose POC Glucose 104 H 119 H 78 04/10/20 04/10/20 04/10/20 01:45 02:03 02:44 Glucose POC Glucose 63 L* 86 207 H 04/10/20 04/10/20 04/10/20 03:50 04:45 05:23 Glucose 149 H POC Glucose 235 H 162 H 04/10/20 04/10/20 04/10/20 05:46 06:45 07:03 Glucose POC Glucose 136 H 63 L* 58 L* 04/10/20 04/10/20 07:22 09:58 Glucose POC Glucose 91 232 H OUTPATIENT ANTIDIABETIC REGIMEN: * Lantus 22 units SQ QPM * Humalog 5 units AC + CR: * 1 unit : 5 gm CHO for breakfast * 1 unit : 10 gm CHO for lunch * 1 unit : 15 gm CHO for supper * A1c = 8.1 % from 03/25/20, up from 7.6% in December 2019 ASSESSMENT: 04/10 * 55 yo M who is POD #1 s/p spinal decompression and fusion. * 1400 BSG from yesterday was elevated at 308 mg/dL so gave the patient an 8 unit IV insulin bolus. Repeat at 1600 was 373 mg/dL so patient was given 3 unit IV insulin bolus and initiated on insulin drip per protocol by 2nd shift pharmacist. Patient used 32.5 units of insulin from the drip over a 12 hour span which equates to ~ 65 units/day total. However, patient had low BSGs overnight requiring the drip to be shut off several times. * BSG dropped to 63 mg/dL at 0145 then drip was shut off for 2 hours and repeat at 0345 was 207 mg/dL. At 0645, patient's BSG dropped to 63 mg/dL and drip was discontinued by myself at this time. Patient was about to eat an early breakfast and his repeat BSG was 91 mg/dL. I instructed the RN to cover only the patient's CHO for the meal, not to subtract any correctional, and to repeat BSG in 2 hours at 1000. * At 1000, patient's BSG was 232 mg/dL. I entered a stressed Lantus dose of 30 units (~1.4 x home dose) and instructed RN to correct this BSG only and repeat BSG in 2 hours at 1200. * Patient is a very brittle type 1 diabetic. I have tightened his novolog parameters for lunchtime meal. BSG at 1200 was 161 mg/dL, coming down nicely but now afraid patient may start stacking novolog. * Dexamethasone dose from 04/09 should be almost cleared by now so will change patient's accuchecks to ACHS and add overnight checks to make sure patient doesn't have nocturnal hypoglycemia. Of note, patient does have IV dexamethasone 8 mg ordered for tomorrow morning (04/11). Plan to cover this with 25 units of NPH tomorrow morning and resume patient's home basal dose at HS. 04/09 * 55 yo M admitted secondary to degenerative disc disease to undergo a spinal decompression and fusion * PMHx significant for T1DM, HLD, HTN, osteoarthritis, CKD-II * A1c not at goal as an outpatient * Patient gave himself 20 units of Lantus the evening prior to surgery. Admission BSG was 334 mg/dL with a repeat of 324 mg/dL. Patient received 8 units of Novolog x 1 pre-op. * Immediate postop BSG was 251 mg/dL. He was ordered a T1DM/Clear liquid diet for lunch. No further steroid doses expected. Lunchtime BSG was 291 mg/dL. Gave patient 1.2 x his home basal dose with lunch to attempt to control st eroid-induced hyperglycemia in a type 1 diabetic. Started with an aggressive bolus insulin regimen of CF/CR based on weight and stress of 3. * Instructed RN to take pt's BSG at 1400 which would be 2 hours after Lantus and Novolog were given to ensure patient's BSG is trending down. If BSG is not trending down, may need to treat hyperglycemia with IV insulin boluses. * Will continue with every 4 hour accuchecks from the time being. Instructed RN to give patient CF coverage with check at 1600 and then when he eats dinner she does not have to check BSG and can just administer CR insulin. PLAN FOR INPATIENT GLYCEMIC CONTROL: * Transitioned off insulin drip this AM secondary to hypoglycemia * Basal insulin * Lantus 30 units SQ x 1 today * NPH 25 units (~ 0.3 units/kg) SQ x 1 on 04/11 AM to cover for steroid- induced hyperglycemia * Bolus insulin * NovoLog per scale ACHS or Q6hrs while NPO * Goal Range: Low 110 mg/dL - High 140 mg/dL * Correction Factor: 20 mg/dL/unit * Nutritional / Prandial insulin per carb ratio of 1 unit per 7 grams CHO consumed PLAN FOR DISCHARGE: * A1c = 8.1% * Pending at this time
--- NOTE | 2020-04-10 16:29 | Hospitalist Progress Note ---
Date of Service April 10, 2020 Assessment & Plan (1) Neurogenic claudication due to lumbar spinal stenosis: Status post L5-S1 spinal fusion performed by Dr. Ribeiro earlier today. Pain management as per surgery (2) Vision changes: Resolved, likely secondary to anesthesia (3) Solitary right kidney: Monitor BMP with AM labs. IV fluids as per surgery. (4) Type 1 diabetes mellitus: Pharmacy consulted for glycemic management per Dr Ribeiro HbA1C 8.1 [03/25/20, no need to repeat] (5) Hypothyroidism: Continue levothyroxine 112 mcg PO daily (6) Hypertension: Intermittently hypertensive Continue lisinopril 40mg PO QAM (7) Acute blood loss anemia: Hgb 12 following surgery, continue to monitor (8) DVT prophylaxis: per surgery Thank you for the consult. Medicine will sign off. Please call with any questions or concerns Admission and Anticipated Discharge Date Admission Date: April 09, 2020 Subjective Mr. Hopson is having some pain today but is ambulating the halls. He otherwise denies complaints ROS Constitutional: no chills, aches, sweats or fever Respiratory: no sob,cough, sputum, or wheezing Cardiac: no chest pain, palpitations, edema, orthopnea or lightheadedness GI: no abdominal pain, nausea, vomiting, diarrhea or constipation : no dysuria or hesitancy Extremities: no joint pain or weakness Skin: no rash All other systems reviewed and negative Physical Exam Physical Exam: General: no distress Eyes: normal inspection, PERLL Respiratory: chest non tender, clear to auscultation, normal breath sounds, no respiratory distress, no accessory muscle use Cardiac: regular rate and rhythm, no rub or gallop, no murmur, no edema, no jvd GI/: active bowel sounds, no abd pain or tenderness, soft, non distended Extremities: normal range of motion, normal strength, non tender Neuro/Psych: alert and oriented x 3, normal mood and affect Skin: normal color, dry Results & Data Results & Data ([facility]) Vital Signs (Past 12 Hours) Vital Signs Temp Pulse Resp BP Pulse Ox 04/10/20 15:36 36.4 C L 73 20 173/83 H 98 04/10/20 07:24 37.0 C 75 16 147/81 H 98 PG Care Time/CCT Total # of Minutes Spent Total Time Spent with Patient: Total time spent is greater than 50% in coordination of care (as documented) at patient's floor/unit and/or counseling patient: Coding Level of Care Code 98007 Subseq Hosp Care Lvl 2 Diagnoses Neurogenic claudication due to lumbar spinal stenosis M48.062 Vision changes H53.9 Solitary right kidney Q60.0 Type 1 diabetes mellitus E10.9 Hypothyroidism E03.9 Hypertension I10 Acute blood loss anemia D62 DVT prophylaxis Z29.9
[2020-04-10] MEDS: FINASTERIDE 5 MG TAB PO SCH (20:37)
[2020-04-10] MEDS: DOCUSATE SODIUM/SENNA 50/8.6MG TAB PO SCH (20:37)
[2020-04-11] MEDS: INSULIN ASPART 100 UNITS/ML 3 ML PEN SC SCH ×4 (00:08→13:01)
[2020-04-11] MEDS: HYDROmorphone INJ 1 MG/ML SYRINGE IV PRN (03:38)
[2020-04-11] MEDS: POLYETHYLENE (MIRALAX) 17 GM PACK PO SCH ×2 (05:20→13:00)
[2020-04-11] MEDS: LEVOTHYROXINE SODIUM 112 MCG TABLET PO SCH (05:20)
[2020-04-11] MEDS: HYDROCODONE/ACETAMINOPHEN 10/325 TAB PO PRN ×2 (07:40→15:31)
[2020-04-11] MEDS: CHOLECALCIFEROL 1,000 UNITS 25 MCG TAB PO SCH (08:49)
[2020-04-11] MEDS: ASCORBIC ACID 500 MG TAB PO SCH (08:49)
[2020-04-11] MEDS: ASPIRIN 81 MG ECTAB PO SCH (08:49)
[2020-04-11] MEDS: lisinopriL 40 MG TAB PO SCH (08:49)
[2020-04-11] MEDS ORDERED: DEXAMETHASONE SOD PHOSPHATE 8 MG in SYRINGE 0 ML IV SCH (09:00)
[2020-04-11] MEDS ORDERED: NovoLIN-N (NPH) PER UNIT CHARGE SQ ONE (09:00)
--- NOTE | 2020-04-11 11:32 | Pharmacy Report ---
Pharmacy Glycemic Short Note 2 - Date of Service April 11, 2020 - Glycemic Short BSG Results (Last 24 hours): 04/10/20 04/10/20 04/10/20 12:00 15:42 15:43 POC Glucose 161 H 42 L* 48 L* 04/10/20 04/10/20 04/10/20 16:04 20:34 23:20 POC Glucose 76 94 62 L* 04/10/20 04/11/20 04/11/20 23:40 03:39 08:18 POC Glucose 86 133 H 246 H OUTPATIENT ANTIDIABETIC REGIMEN: * Lantus 22 units SQ QPM * Humalog 5 units AC + CR: * 1 unit : 5 gm CHO for breakfast * 1 unit : 10 gm CHO for lunch * 1 unit : 15 gm CHO for supper * A1c = 8.1 % from 03/25/20, up from 7.6% in December 2019 ASSESSMENT: 04/11 * POD #2. Lantus dose from yesterday provided patient with too much basal insulin as he was hypoglycemic and then had rebound hyperglycemia throughout the entire day. Required 105 gm CHO to treat hypoglycemia yesterday with subsequent checks being elevated. * Received 62 units total yesterday: 30 basal + 32 bolus * BSGs ranged: 42 - 235 mg/dL * Patient started on IV dexamethasone 8 mg daily started this morning. Will cover daily dexamethasone with [] units of NPH every morning. Will resume patients home dose of Lantus 22 units HS this evening. * Carb ratio was adjusted secondary to hypoglycemia yesterday afternoon. Believe hypoglycemia will resolve now that patient is not basal heavy. Will tighten carb ratio to previous amount. 04/10 * 55 yo M who is POD #1 s/p spinal decompression and fusion. * 1400 BSG from yesterday was elevated at 308 mg/dL so gave the patient an 8 unit IV insulin bolus. Repeat at 1600 was 373 mg/dL so patient was given 3 unit IV insulin bolus and initiated on insulin drip per protocol by 2nd shift pharmacist. Patient used 32.5 units of insulin from the drip over a 12 hour span which equates to ~ 65 units/day total. However, patient had low BSGs overnight requiring the drip to be shut off several times. * BSG dropped to 63 mg/dL at 0145 then drip was shut off for 2 hours and repeat at 0345 was 207 mg/dL. At 0645, patient's BSG dropped to 63 mg/dL and drip was discontinued by myself at this time. Patient was about to eat an early breakfast and his repeat BSG was 91 mg/dL. I instructed the RN to cover only the patient's CHO for the meal, not to subtract any correctional, and to repeat BSG in 2 hours at 1000. * At 1000, patient's BSG was 232 mg/dL. I entered a stressed Lantus dose of 30 units (~1.4 x home dose) and instructed RN to correct this BSG only and repeat BSG in 2 hours at 1200. * Patient is a very brittle type 1 diabetic. I have tightened his novolog parameters for lunchtime meal. BSG at 1200 was 161 mg/dL, coming down nicely but now afraid patient may start stacking novolog. * Dexamethasone dose from 04/09 should be almost cleared by now so will change patient's accuchecks to ACHS and add overnight checks to make sure patient doesn't have nocturnal hypoglycemia. Of note, patient does have IV dexamethasone 8 mg ordered for tomorrow morning (04/11). Plan to cover this with 25 units of NPH tomorrow morning and resume patient's home basal dose at HS. PLAN FOR INPATIENT GLYCEMIC CONTROL: * Basal insulin * Lantus 22 units SQ HS * NPH 25 units (~ 0.3 units/kg) SQ x QAM to cover for steroid-induced hyper glycemia * Bolus insulin - tighten * NovoLog per scale ACHS or Q6hrs while NPO * Goal Range: Low 110 mg/dL - High 140 mg/dL * Correction Factor: 15 mg/dL/unit * Nutritional / Prandial insulin per carb ratio of 1 unit per 5 grams CHO consumed PLAN FOR DISCHARGE: * A1c = 8.1% * Pending at this time
--- NOTE | 2020-04-11 14:27 | Discharge Summary ---
Date of Service April 11, 2020 Admission HPI Per Admitting Provider This is a 55-year-old male who presents with chronic persistent back and leg pain. Failing extensive course of nonoperative care is here for surgical invention. Principal Diagnosis Lumbar spinal stenosis with radiculopathy Discharge Data Allergies Allergy/AdvReac Type Severity Reaction Status Date / Time succinylcholine Allergy Severe FAMILY HX Verified 04/09/20 06:40 SEE BELOW Iodinated Contrast Media Allergy Intermediate Vomiting Verified 04/09/20 06:40 morphine Allergy Intermediate Vomiting Verified 04/09/20 06:40 meperidine [From Demerol] AdvReac Intermediate hallicinati Verified 04/09/20 07:18 ons Consultations 04/09/20 11:14 Consult Case Management - Discharge Planning Routine Consult Hospitalist Routine Procedures Performed Operation Date: 04/09/20 07:45 Actual Procedures p L5-S1 Decompression Fusion, Spinal Cord Monitoring(Not Applicable) - Km Ribeiro DO Ordered Studies 04/09/20 07:45 FL fluoroscopy <1hr Routine FL lumbar spine 2-3V Routine Hospital Course (1) Neurogenic claudication due to lumbar spinal stenosis: Patient with lumbar decompression fusion tolerated this well was taken to the orthopedic floor possibly. Postop day 1 leg pain is improved ambulating well. Progressed the postop day #2. Excellent strength testing. TRAN drain decreasing probably. Subsequently discharged home. Discharge orders and instructions from the chart for further review. Total Time Total Time Spent Total Time Spent (In Minutes): 20 minutes Discharge Plan Discharge Items Patient Disposition: Home - Self-Care Reason For Visit: LUMBAR SPINAL STENOSIS W NEUROGENIC CLAUDICATION Discharge Diagnosis: Lumbar spinal stenosis with neurogenic claudication Activity: As commented below Non-emergency contact: Primary Care Provider Call non-emergency contact if: you have any medication questions Follow-up/Referrals: Bonifacio Caputo D.O. [Primary Care Provider] - Diet: Regular Addtl Attending Provider Instructions: ACTIVITY RECOMMENDATIONS: SELF CARE INSTRUCTIONS AFTER THORACIC/LUMBAR FUSIONS 1. You may walk to your tolerance. It is good exercise for your legs and back. Expect some back and intermittent leg aches and pains. 2. You may perform "counter-top" level activities (make a sandwich, nelson with a project, etc.). 3. No bending or lifting of more than 10 pounds or back twisting of any nature (roll like a log when turning in bed). 4. You may ride in a car for 20-30 minutes at a time. No driving until after your first visit with your doctor. 5. Frequent changes of position and restricting sitting to 30 minutes at a time will help limit the amount of back spasms and stiffness you may experience. 6. You may discontinue the use of ambulatory aids (cane, crutches, etc.) once your strength and confidence allow. 7. You may study abroad coordinator the shower and let water strike your incision when you arrive home at least once daily. Do not take a tub bath, sit in a hot tub or go into a swimming pool until after your first recheck in the office. SPECIAL CARE INSTRUCTIONS: VERY IMPORTANT TO READ AND REVIEW A. Your surgical incision has been closed with a cosmetic suture under the skin that will dissolve in about 6 weeks. In 14 days, you can use a pair of clean scissors and cut the suture that is left outside of the skin at the ends of your incision. 1. The small skin tapes can be removed 7 days after surgery if they have not fallen off by that point. 2. You may keep the wound open to air as much as possible to promote healing after post-op day number 5 unless told otherwise by your doctor. 3. If you think the wound looks like it is becoming infected (redness or worsening drainage) and/or you are experiencing fever, chill or worsening back pain and muscle spasms, contact the office so that we may evaluate you as soon as possible. B. Complications are uncommon, but please contact us if you have any signs or symptoms of: 1. wound infection (fever higher than 102.5 degrees F, redness, separation of wound, drainage, or increasing pain from the incision) 2. blood clots in legs (pain, swelling, redness and warmth in legs) 3. urinary tract infection (fever higher than 102.5 degrees F, burning upon urination or increased frequency of urination) 4. nerve problems (inability to walk on your toes or heels, numbness, loss of bowel or bladder control) 5. any other symptoms that concern you C. Please call the office at if you have any concerns or questions about your operation or recovery. D. No smoking! Smoking drastically decreases the chance of a solid fusion. E. Do not take any anti-inflammatory medications (Indocin, Advil, Motrin, Asp irin, Naprosyn, etc.) as these may inhibit the chance of a solid fusion. Tylenol is okay to take for pain. MANAGING PAIN AFTER SPINAL SURGERY 1. Narcotic medication is intended for short-term use and will be provided for surgical pain. Surgical pain usually lasts for a period of 4-6 weeks. Narcotic medication includes Percocet, Vicodin, Darvocet, Tylenol #3 or Lortab. 2. Longer-term pain is more appropriately treated with non-narcotic medication such as Tylenol ES. 3. Muscle spasm is not appropriately treated with narcotics. Muscle relaxers such as Soma, Flexeril or Skelaxin can be used along with Tylenol ES. 4. Remember that we all live with some "aches and pains". This is not unusual or uncommon after an injury or as we get older. a. Back pain is expected and may include muscle spasms for 4 to 6 weeks after surgery. The pain should gradually improve. If the pain worsens for no apparent reason, please contact the office. b. Intermittent leg pain may also be experienced and should not be concerned about unless it worsens for no apparent reason. If so, please contact the office. 5. We will provide appropriate medication within the normal guidelines of their prescribed use. We will also be very cautious and aware of potential abuse and extended duration of patients' medication needs. a. Pain medications are for your comfort and to assist with sleep and rest so that the tissue can heal. They are not provided in order to return to normal activity and should not be used through the day. To do so or worsening pain at night can result from ongoing tissue damage and development of tolerance to the prescribed medicine. 6. Please allow 2-3 days to process refills. Prescriptions will not be mailed but must be picked up at the office. FOLLOW UP VISIT: Keep your scheduled follow-up appointment. Any questions, please call the office at . Pending Studies at Discharge: No Stand-Alone Forms: My [employer], Opioid Pain Management, Smoking Cessation Medications and DC Order Prescriptions: New tramadol 50 mg tablet 50 mg PO Q6H PRN (Reason: pain, moderate) Qty: 30 RF: 0 hydrocodone-acetaminophen 5-325 mg tablet See Rx Instructions .ROUTE .COMPLEX PRN (Reason: pain) Qty: 20 RF: 0 Continued (DME) OneTouch Ultra Blue Test Strip strip See Dose Instructions .ROUTE .MEDSUPPLY Qty: 400 RF: 3 Glucagon Emergency Kit (human) 1 mg recon soln 1 mg IM DIRECTED PRN (Reason: Hypoglycemia) Qty: 1 RF: 3 (DME) insulin syringe-needle U-100 [BD Insulin Syringe Ultra-Fine] 0.3 mL 31 gauge x 5/16" syringe See Dose Instructions .ROUTE .MEDSUPPLY Qty: 400 RF: 3 aspirin [Adult Low Dose Aspirin] 81 mg tablet,delayed release (DR/EC) 81 mg PO QAM RF: 0 finasteride 5 mg tablet 5 mg PO QPM RF: 0 cyclobenzaprine 5 mg tablet 5 mg PO TID PRN (Reason: Muscle Spasm) RF: 0 lisinopril 40 mg tablet 40 mg PO QAM Qty: 90 RF: 0 cholecalciferol (vitamin D3) 2,000 unit capsule 2,000 units PO QAM RF: 0 ammonium lactate 12 % cream 1 appln topical BID PRN (Reason: Rash) Qty: 1 RF: 0 ascorbic acid (vitamin C) 1,000 mg tablet 1,000 mg PO QAM RF: 0 Lantus U-100 Insulin 100 unit/mL solution 22 units SQ PM RF: 0 insulin lispro [Humalog U-100 Insulin] 100 unit/mL solution 5 units SQ AC RF: 0 levothyroxine 112 mcg tablet 112 mcg PO 0200 RF: 0 Glucosamine 2 tab PO DAILY RF: 0 Discharge Orders: Discharge Order (Routine); Ordered 04/11/20 Ordered By: Km Mcclain/Other Patient Handouts: DVT Post Op Prevention Admission Data Admit Date/Time: 04/09/20 09:43 Attending Provider: Km Ribeiro Admit Provider: Km Ribeiro Primary Care Provider: Bonifacio Caputo. Other Providers: Volodymyr Enamorado Other Interventions: Discharge Summary Assessment (RN) Last Done: 04/11/20 14:20
[2020-04-11] MEDS ORDERED: INSULIN GLARGINE SOLOSTAR 100 UNITS/ML 3 ML PEN SC SCH (21:00)
--- NOTE | 2020-04-12 13:25 | Communication Note ---
Date of Service: April 12, 2020 Called Mr. Hopson today to follow up on blood sugars as he had a dose of dexamethasone the morning of his discharge. He is running 240s-300. He feels fine, no complaints. Paged [facility] and asked to advise patient on next steps. He will look over patient's information and then call the patient with recommendations.
== END 2020-04-11 16:30 | disposition home or self-care (01) | DRG 455 ==
LOC: ASU 06:11 → 3W 09:43

== ENCOUNTER 2023-01-07 10:14 | Inpatient (IN) ==
[2023-01-07] MEDS ORDERED: ACETAMINOPHEN 1,000 MG/100 ML VIAL IV STA (11:31)
[2023-01-07] MEDS ORDERED: ONDANSETRON INJ 2 MG/ML 2 ML VIAL IV STA (11:31)
[2023-01-07] MEDS ORDERED: MoRPHine SULFATE 10 MG/ML CARP/VIAL IV STA (11:31)
[2023-01-07] MEDS ORDERED: diazePAM 5 MG TABLET PO ONE (11:41)
[2023-01-07] MEDS ORDERED: SODIUM CHLORIDE 0.9% 1000ML 1,000 ML IV SCH ×2 (11:45→15:48)
[2023-01-07 12:53] LABS: Basophils # (auto) 0.05 K/uL (0-0.2); Basophils % (auto) 0.7 %; Eosinophils # (auto) 0.31 K/uL (0-0.50); Eosinophils % (auto) 4.5 %; Hematocrit (blood only) 50.3 % (42.0-52.0); Immature Granulocytes # (auto) 0.05 K/uL (0.01-0.20); Immature Granulocytes % (auto) 0.7 %; Lymphocytes # (auto) 1.95 K/uL (1.2-3.4); Lymphocytes % (auto) 28.3 %; Mean Corpuscular Hemoglobin 29.9 pg (25.0-34.0); Mean Corpuscular Hgb Conc 33.8 g/dL (32.0-36.0); Mean Corpuscular Volume 88.6 fL (80.0-100.0); Monocytes % (auto) 10.2 %; Neutrophils # (auto) 3.82 K/uL (1.40-6.50); Neutrophils % (auto) 55.6 %; Platelet Count 247 K/uL (130-400); RDW Coefficient of Variation 12.9 % (11.5-14.5); RDW Standard Deviation 42.1 fL (36.4-46.3); Red Blood Count 5.68 M/uL (4.70-6.10); White Blood Count 6.88 K/ul (4.8-10.8)
[2023-01-07 12:59] LABS: Albumin Globulin Ratio 1.4 (0.9-2); Albumin Level 4.3 gm/dl (3.4-5.0); BUN Creatinine Ratio 16.8 (10-20); Bilirubin,Total 0.7 mg/dl (0.2-1.0); Calcium 9.9 mg/dl (8.6-10.3); Creatinine Clr Calc Pharmacy 77.7 ml/min; Est GFR (African American) 88.2 ml/min; Est GFR (Non-African American) 76.1 ml/min; Magnesium 1.9 mg/dl (1.7-2.4); Potassium 4.4 mmol/L (3.5-5.1); Total Protein 7.3 gm/dl (6.0-8.3)
[2023-01-07 15:19] LABS: Appearance Urine Clear (Clear); Bilirubin Urine Negative (Negative); Blood Urine Negative (Negative); Color Urine Yellow; Glucose Urine UA Negative (Negative); Ketones Urine Negative (Negative); Leukocyte Esterase Urine Negative (Negative); Nitrite Urine Negative (Negative); Protein Urine Negative (Negative); Specific Gravity Urine 1.008 (1.000-1.030); Urobilinogen Urine Negative (Negative)
--- NOTE | 2023-01-07 15:30 | History & Physical Report ---
Date of Service January 07, 2023 Assessment & Plan (1) Lumbar disc herniation with radiculopathy: Plan: Assessment lumbar disc herniation with radiculopathy. Plan at this time the patient is undergone an MRI recently that demonstrates evidence of massive disc herniation L4-5 foraminal nature occupying the L4-5 foraminal on the left. He is well decompressed at the area of his previous surgery in 2019. At this time admit in the hospital for pain control attempt physical therapy for evaluation but strong suspect he is going to require surgical intervention. Would necessitate removal of the previous instrumentation L5-S1 aggressive facetectomy and discectomy at L4-5 to adequately decompress the root and fusion at this level. History of Present Illness Chief Complaint: Severe left leg pain. Primary Care Provider: Bonifacio Caputo This is a 57-year-old male who presents with marked plan status over the past several weeks. He was seen in the office earlier this week with complaints of severe left leg radiculopathy that radiates into the buttock and groin down the leg into the foot. Markedly limits his ability to stand and ambulate. He cannot find a comfortable position. The right lower extremity is at this time asymptomatic. He notes marked sensory changes to the left lower extremity and has difficulty walking his leg gives out on him. Allergies Allergy/AdvReac Type Severity Reaction Status Date / Time succinylcholine Allergy Severe FAMILY HX Verified 12/10/22 15:23 SEE BELOW Iodinated Contrast Media Allergy Intermediate Vomiting Verified 12/10/22 15:23 morphine Allergy Intermediate Vomiting Verified 12/10/22 15:23 meperidine [From Demerol] AdvReac Intermediate hallicinati Verified 12/10/22 15:23 ons Home Medications Medication Instructions Recorded Confirmed Type aspirin 81 mg tablet,delayed 81 mg PO QAM 07/25/19 01/07/23 History release (Adult Low Dose Aspirin) cholecalciferol (vitamin D3) 50 2,000 units PO QAM 07/25/19 01/07/23 History mcg (2,000 unit) capsule cyclobenzaprine 5 mg tablet 5 mg PO TID PRN Muscle Spasm 07/25/19 01/07/23 History lisinopril 40 mg tablet 40 mg PO QAM #90 tabs 07/25/19 01/07/23 History ascorbic acid (vitamin C) 1,000 mg 1,000 mg PO QAM 01/29/20 01/07/23 History tablet BD Insulin Syringe Ultra-Fine 0.3 #200 ea 01/21/21 12/10/22 Rx mL 31 gauge x 5/16" (insulin syringe-needle U-100) glucosamine-chondroitin 2 ea PO QAM 04/23/21 01/07/23 History insulin lispro 100 unit/mL 50 unit (0.5 mL) subcut DAILY #2 02/02/22 01/07/23 Rx subcutaneous solution (Humalog vials U-100 Insulin) finasteride 5 mg tablet 5 mg PO DAILY #90 tabs 02/18/22 01/07/23 Rx tadalafil 5 mg tablet (Cialis) 5 mg PO DAILY #90 tabs 02/18/22 01/07/23 Rx glucagon (human recombinant) 1 mg 1 mg IM DIRECTED PRN 06/08/22 01/07/23 Rx solution for injection Hypoglycemia #1 ea blood sugar diagnostic (OneTouch #400 ea 08/11/22 12/10/22 Rx Ultra Test strips) insulin glargine 100 unit/mL 23 unit (0.23 mL) subcut QPM 90 08/11/22 01/07/23 Rx subcutaneous solution (Lantus days #20.7 mL U-100 Insulin) ammonium lactate 12 % lotion 1 applic topical BID PRN Skin 12/10/22 01/07/23 History Irritation levothyroxine 125 mcg tablet 125 mcg PO DAILY #90 tabs 12/10/22 01/07/23 Rx hydrocodone 5 mg-acetaminophen 325 2 tab PO Q6H PRN pain #20 tabs 01/03/23 01/07/23 Rx mg tablet Past Med/Surg History Medical History BPH w urinary obs/LUTS Degenerative disc disease Diabetes mellitus type 1 Stable per patient GERD (gastroesophageal reflux disease) HX- stable and controlled Hyperlipidemia Hypertension Hypothyroidism Neurogenic claudication due to lumbar spinal stenosis Nocturia Osteoarthritis Severe back pain Solitary right kidney Functioning well per patient - Stage II CKD Surgical History History of carpal tunnel release of both wrists History of carpal tunnel repair BILAT History of cataract surgery BILAT History of cholecystectomy History of colonoscopy History of esophagogastroduodenoscopy (EGD) 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 History of Herson fundoplication Family History Grandfather (Maternal) Heart disease Grandfather (Paternal) Heart disease Grandmother (Maternal) Diabetes Heart disease Family history of reaction to anesthesia PT'S GRANDMOTHER STOPPED BREATHING WITH SUCCINYCHOLINE DURING A PROCEDURE Grandmother (Paternal) Heart disease Uncle Prostate cancer Diabetes Social History Smoking Status: Never smoker Cigarettes Per Day: QUIT 5 YRS AGO; Second Hand Exposure: No; Hx Alcohol Use: Yes Hx Substance Use: No Preferred Language: Sami Communication Ability: Effective Senior Billing Consultant Required: No Beliefs That Will Affect Care: None marital status: Current Living Situation: Spouse Feels Safe at Home: Yes Assistive Devices: None Physical Exam Physical Exam: On exam he is in obvious distress. He has significant tension signs with straight leg raising on the left contralateral signs on the right. He has sensory deficits to cold and light touch to the left lower extremity compared to the right. He has plus 5 out of 5 right plantarflexion dorsiflex extensor pollicis longus which is a 4+ on the left. Deep tendon reflexes diminished. Results & Data Results & Data Vital Signs (Past 12 Hours) Vital Signs Temp Pulse Resp BP Pulse Ox O2 Del Method 01/07/23 15:00 71 16 99 01/07/23 15:00 142/77 H 01/07/23 14:30 74 13 98 01/07/23 14:30 144/87 H 01/07/23 14:00 81 15 88 L 01/07/23 14:00 144/93 H 01/07/23 13:30 78 15 01/07/23 13:30 136/75 01/07/23 13:00 73 18 01/07/23 13:00 158/94 H 01/07/23 12:30 83 17 01/07/23 12:30 135/95 01/07/23 12:08 131/94 01/07/23 12:08 76 16 100 01/07/23 12:03 72 15 100 01/07/23 12:42 69 01/07/23 12:10 73 15 100 Room Air 01/07/23 10:20 36.1 C L 87 20 177/109 H 98 Room Air
[2023-01-07] MEDS ORDERED: ACETAMINOPHEN 500 MG TAB PO PRN (15:48)
[2023-01-07] MEDS ORDERED: ONDANSETRON INJ 2 MG/ML 2 ML VIAL IV PRN (15:48)
[2023-01-07] MEDS ORDERED: PROMETHAZINE HCL 12.5 MG in SODIUM CHLORIDE 0.9% 50 ML IV PRN (15:48)
[2023-01-07] MEDS ORDERED: NALOXONE HCL 0.4 MG/1 ML VIAL/CARP IV PRN (15:48)
[2023-01-07] MEDS ORDERED: METOCLOPRAMIDE HCL INJ 5 MG/ML 2 ML VIAL IV PRN (15:48)
[2023-01-07] MEDS ORDERED: MAGNESIUM HYDROXIDE SUSP 30 ML UDC PO PRN (15:48)
[2023-01-07] MEDS ORDERED: PHARMACY GLYCEMIC MGMT CONSULT PRN (15:48)
[2023-01-07] MEDS ORDERED: LORazepam 2 MG/1 ML VIAL IV PRN (15:48)
[2023-01-07] MEDS ORDERED: ACETAMINOPHEN 1,000 MG/100 ML VIAL IV PRN (15:48)
[2023-01-07] MEDS ORDERED: ONDANSETRON 4 MG OD TAB PO PRN (15:48)
[2023-01-07] MEDS ORDERED: HYDROmorphone INJ 0.5 MG/0.5 ML SYR IV PRN (15:48)
[2023-01-07] MEDS: oxyCODONE HCL IR 5 MG TAB (IMMEDIATE RELEASE) PO PRN ×2 (16:25→21:43)
[2023-01-07] MEDS: HYDROmorphone INJ 1 MG/ML SYRINGE IV PRN ×2 (17:18→21:04)
[2023-01-07] MEDS: INSULIN ASPART PER UNIT CHARGE SC SCH ×2 (17:54→21:08)
--- NOTE | 2023-01-07 18:17 | Hospitalist Consultation ---
Date of Consultation January 07, 2023 Assessment & Plan (1) Lumbar disc herniation with radiculopathy: -Pain control, perioperative abx, IV fluids, and DVT PPX per the primary team -The patient is currently afebrile, hemodynamically stable, and stable on RA -Was supposed to have lumbar spinal decompression with Dr. Ribeiro next week but his pain is too severe, was admitted by Dr. Ribeiro with possible surgery in the near future -Currently with LLE weakness and urinary retention requiring styles cath insertio n -Will order am CBC and CMP to follow -Thank you for allowing use to participate in the care of the patient, please reach out with any questions or concerns (2) Urinary retention: -Patient was unable to urinate down in the ED, was bladder scanned for 706 and styles cath was inserted -Patient does have a hx of BPH with urinary retention, currently on finasteride and daily Cialis for both erectile dysfunction and BPH -Continue styles cath for now, patient will need a voiding trial before discharge -Continue finasteride for now (3) Elevated LFTs: -Patient's AST at 177, ALT at 343, and alk phos of 181 -Total bili WNL, no abd pain, no jaundice -Patient denies consistent alcohol use, states he was previously told he had an enlarged liver -No signs of acute alcohol withdrawal -Will obtain alcohol level and acute hepatitis panel -Will wait to obtain US of the abdomen at this time as I do not think he would tolerate it with his current back pain/discomfort -Continue to monitor daily CMP (4) Type 1 diabetes mellitus: -Pharmacy glycemic consult placed by the ED -Continue to follow Pharmacy's orders (5) Hypothyroidism: -Continue levothyroxine (6) Hypertension: -Stable -Continue lisinopril (7) BPH w urinary obs/LUTS: -Continue styles cath and finasteride for now -If he fails his voiding trial then will need a Urology consult (8) Solitary right kidney: -Due to previous congenital defect -Renal function stable Plan The patient was discussed with Dr. Beaver at the time of the consult Supervising Physician Co-Signing Physician Notes I personally saw and examined the patient. I verified all mcclendon points and agree with Will Mendiola PA-C with the following exceptions and/or additions: 57 year old male who presents to the ER with acute n chronic worsening of his left leg radicular and back pain. Also having some weakness in his left leg. Medicine consulted for medical management. O/E Alert but drowsy, orientated x3, HS RRR, no murmurs, Chest CTAB, Abdo SNT A/P Lumbar disc herniation with radiculopathy - VTE/Pain/Bowel management per orthop edics. Recently started on gabapentin and in setting of benzodiazepine and opiate use would recommend we reduce this to 100mg PO TID. If planning on surgery recommend holding his aspirin. IV fluids switched from NSS to LR to avoid acidosis. Urine retention - styles catheter placed in the ER. suspect due to immobility, opiate use in setting of known BPH. Previously on tamsulosin but stopped due to dizziness and hypotension only while working which resolved after he stopped it. Willing to try this again to aid with eventual styles catheter removal but if he becomes dizzy consider stopping lisinopril. Continue Cialis and finasteride. Elevated LFTs - INR and repeat LFTs in AM. Hepatitis panel pending. Abnormal pattern for alcohol use. Consider US liver if not normalizing although currently unlikely to tolerate. Max dose of acetaminophen changed to 2000mg. Avoid NSAIDs. History of Present Illness Reason for Consultation: Post-op medical management Requesting Physician: Km Ribeiro DO Attending Physician: Dr. Andre Beaver History of Present Illness Nate is a 57 year old male with a PMH significant for DM I, hypothyroidism, HTN, BPH, former tobacco abuse, dyslipidemia, and chronic lumbar back pain with radiculopathy who presented to the [facility] ED on 01/07/23 at the recommendation of Dr. Ribeiro due to worsening low back pain with radiculopathy. Per chart review, the patient recent had an MRI of the lumbar spine which showed massive disc herniation L4-5 foraminal nature occupying the L4-5 foraminal on the left. His pain continued to progress and he called Dr. Ribeiro earlier today, Dr. Ribeiro instructed him to go to the ED for further evaluation. In the ED the patient was found to be afebrile, hemodynamically stable, and stable on RA. Labs were remarkable for a CBC WNL, stable Cr of 1.07 with glucose of 189, stable electrolytes, AST of 177, ALT of 343, alk phos of 181 and total bili WNL, negative UA and negative covid screen. We were consulted for medical management as the patient will likely be taken to the OR with Dr. Ribeiro during his admission for decompression and spinal fusion. At the time of the exam the patient was lying in bed in no acute distress. He states that he was originally scheduled for surgery with Dr. Ribeiro next Tuesday, however, his pain back has been so severe his daily quality of life has been severely reduced. He states that in the ED he was unable to urinate and they bladder scanned him prior to placing a styles cath. Per review of his chart, he was bladder scanned for 706 mL. He denies recent fever, chills, chest pain, SOB, abd pain, nausea, vomiting, diarrhea, dysuria, hematuria, melena, LE swelling, and recent falls or trauma. I asked him regarding alcohol use as his liver function is elevated today. He states that he typically drinks socially and infrequently. He did have a shot of liquor last night to try and help him sleep. He states that he was previously diagnosed with an enlarged liver when he had a kidney removed in the past. He states that he had a congenital defect in one of his kidneys which caused multiple infections and needed to be removed. His back pain currently starts in his lumbar spine with significant radiculopathy around the left hip, into the left groin, and down the left LE. He feels as though his LLE is weaker than his RLE at this time. He denies lose of bowel function and saddle anesthesia. Please refer to Dr. Beaver's attestation for any changes to the treatment plan Allergies Allergy/AdvReac Type Severity Reaction Status Date / Time succinylcholine Allergy Severe FAMILY HX Verified 01/07/23 15:37 SEE BELOW Iodinated Contrast Media Allergy Intermediate Vomiting Verified 01/07/23 15:37 morphine Allergy Intermediate Vomiting Verified 01/07/23 15:37 meperidine [From Demerol] AdvReac Intermediate hallicinati Verified 01/07/23 15:37 ons Home Medications Medication Instructions Recorded Confirmed Type aspirin 81 mg tablet,delayed 81 mg PO QAM 07/25/19 01/07/23 History release (Adult Low Dose Aspirin) cholecalciferol (vitamin D3) 50 2,000 units PO QAM 07/25/19 01/07/23 History mcg (2,000 unit) capsule cyclobenzaprine 5 mg tablet 5 mg PO TID PRN Muscle Spasm 07/25/19 01/07/23 History lisinopril 40 mg tablet 40 mg PO QAM #90 tabs 07/25/19 01/07/23 History ascorbic acid (vitamin C) 1,000 mg 1,000 mg PO QAM 01/29/20 01/07/23 History tablet BD Insulin Syringe Ultra-Fine 0.3 #200 ea 01/21/21 12/10/22 Rx mL 31 gauge x 5/16" (insulin syringe-needle U-100) insulin lispro 100 unit/mL 50 unit (0.5 mL) subcut DAILY #2 02/02/22 01/07/23 Rx subcutaneous solution (Humalog vials U-100 Insulin) glucagon (human recombinant) 1 mg 1 mg IM DIRECTED PRN 06/08/22 01/07/23 Rx solution for injection Hypoglycemia #1 ea blood sugar diagnostic (OneTouch #400 ea 08/11/22 12/10/22 Rx Ultra Test strips) insulin glargine 100 unit/mL 23 unit (0.23 mL) subcut QPM 90 08/11/22 01/07/23 Rx subcutaneous solution (Lantus days #20.7 mL U-100 Insulin) ammonium lactate 12 % lotion 1 applic topical BID PRN Skin 12/10/22 01/07/23 History Irritation levothyroxine 125 mcg tablet 125 mcg PO DAILY #90 tabs 12/10/22 01/07/23 Rx hydrocodone 5 mg-acetaminophen 325 2 tab PO Q6H PRN pain #20 tabs 01/03/23 01/07/23 Rx mg tablet finasteride 5 mg tablet 5 mg PO HS 01/07/23 01/07/23 History gabapentin 300 mg capsule 300 mg PO TID 01/07/23 01/07/23 History glucosamine sulfate dipotassium Cl 1 tab PO BID 01/07/23 01/07/23 History 500 mg-chondroitin 400 mg capsule (Glucosamine Sulfate 2 KCL-Chondroitin) tadalafil 5 mg tablet (Cialis) 5 mg PO QAM 01/07/23 01/07/23 History Patient History Medical History BPH w urinary obs/LUTS Degenerative disc disease Diabetes mellitus type 1 Stable per patient GERD (gastroesophageal reflux disease) HX- stable and controlled Hyperlipidemia Hypertension Hypothyroidism Neurogenic claudication due to lumbar spinal stenosis Nocturia Osteoarthritis Severe back pain Solitary right kidney Functioning well per patient - Stage II CKD Surgical History History of carpal tunnel release of both wrists History of carpal tunnel repair BILAT History of cataract surgery BILAT History of cholecystectomy History of colonoscopy History of esophagogastroduodenoscopy (EGD) 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 History of Herson fundoplication Family History Grandfather (Maternal) Heart disease Grandfather (Paternal) Heart disease Grandmother (Maternal) Diabetes Heart disease Family history of reaction to anesthesia PT'S GRANDMOTHER STOPPED BREATHING WITH SUCCINYCHOLINE DURING A PROCEDURE Grandmother (Paternal) Heart disease Uncle Prostate cancer Diabetes Social History Smoking Status: Former smoker Cigarettes Per Day: QUIT 5 YRS AGO; Second Hand Exposure: No; Hx Alcohol Use: Yes Alcohol type: hard liquor Hx Substance Use: No Preferred Language: Latvian Communication Ability: Effective Supervisor [employer] Required: No Beliefs That Will Affect Care: None marital status: Current Living Situation: Spouse Other Information That Helps Us Care for You: No Feels Safe at Home: Yes Safety Concerns: Feels Safe At This Time Assistive Devices: Cane Review of Systems Review of Systems: Denies current fever, chills, headache, changes in vision, hearing, taste, and smell, chest pain, SOB, cough, abdominal pain, nausea, vomiting, diarrhea, he matemesis, melena, dysuria, hematuria, and recent falls. All systems have been reviewed and are otherwise negative. Physical Exam Physical Exam: Physical Exam: General: In no acute distress, stated age, well-nourished, good hygiene HEENT: Normocephalic, atraumatic, no scleral icterus, pupils around round, symmetrical, and reactive to light, moist mucus membranes, trachea midline, no thyromegaly Chest/Pulm: No respiratory distress, symmetrical chest expansion, clear breath sounds throughout Cardiac: RRR, no murmurs noted Abdomen: Negative for ascites and bruising, normoactive bowel sounds, soft, non-tender to palpation throughout Musculoskeletal: ROM intact and symmetrical in the BL upper extremities, LLE with decreased strenght compared to right on exam Extremities: Radial, dorsalis pedis, and posterior tibial pulses are intact and symmetrical, no edema noted in the BL LE's Skin: Warm, dry, no rashes , lesions, or scars noted Neuro: Alert and oriented to person, place, month, year, and president, no focal defects, CN II-XII tested and intact, no tremors noted Psych: No acute distress, calm and cooperative during the exam Results & Data Results & Data Vital Signs (Past 12 Hours) Vital Signs Temp Pulse Pulse Resp BP BP Pulse Ox 01/07/23 15:52 36.4 C 77 18 151/93 H 99 01/07/23 15:00 71 16 99 01/07/23 15:00 142/77 H 01/07/23 14:30 74 13 98 01/07/23 14:30 144/87 H 01/07/23 14:00 81 15 88 L 01/07/23 14:00 144/93 H 01/07/23 13:30 78 15 01/07/23 13:30 136/75 01/07/23 13:00 73 18 01/07/23 13:00 158/94 H 01/07/23 12:30 83 17 01/07/23 12:30 135/95 01/07/23 12:08 131/94 01/07/23 12:08 76 16 100 01/07/23 12:03 72 15 100 01/07/23 12:42 69 01/07/23 12:10 73 15 100 01/07/23 10:20 36.1 C L 87 20 177/109 H 98 O2 Del Method 01/07/23 15:52 Room Air 01/07/23 15:00 01/07/23 15:00 01/07/23 14:30 01/07/23 14:30 01/07/23 14:00 01/07/23 14:00 01/07/23 13:30 01/07/23 13:30 01/07/23 13:00 01/07/23 13:00 01/07/23 12:30 01/07/23 12:30 01/07/23 12:08 01/07/23 12:08 01/07/23 12:03 01/07/23 12:42 01/07/23 12:10 Room Air 01/07/23 10:20 Room Air Laboratory Results Abnormal lab results 01/07/23 01/07/23 01/07/23 Range/Units 11:50 11:50 17:14 [place] # (Auto) 0.70 H (0.11-0.59) K/uL Glucose 189 H (70-99(Fasting)) mg/dl POC Glucose 159 H (70-99) mg/dl AST 177 H (13-39) U/L ALT 343 H (7-52) U/L Alkaline Phosphatase 181 H (34-104) U/L ECG Additional Comments: Normal sinus rhythm Possible Left atrial enlargement Borderline ECG When comp ared with ECG of 25-MAR-2020 10:52, No significant change was found Confirmed by Real Self ([id number]) on 01/06/2023 2:17:38 PM PG Care Time/CCT Total # of Minutes Spent Total Time Spent with Patient: Total time spent is greater than 50% in coordination of care (as documented) at patient's floor/unit and/or counseling patient: Coding [place] [address] IN/OBS CONSULT LVL 4,60M Patient Type Established Medical Decision Making High Complexity Diagnoses Lumbar disc herniation with radiculopathy M51.16 Urinary retention R33.9 Elevated LFTs R79.89 Type 1 diabetes mellitus E10.9 Hypothyroidism E03.9 Hypertension I10 BPH w urinary obs/LUTS N40.1; N13.8 Solitary right kidney Q60.0
[2023-01-07] MEDS: FAMOTIDINE 20 MG in SYRINGE 3 ML IV SCH (18:47)
--- NOTE | 2023-01-07 20:57 | Emergency Department Note ---
Impression & Plan Lumbar disc herniation with radiculopathy, Type 1 diabetes mellitus, Elevated LFTs, Acute urinary retention, Intractable low back pain ED Provider Note NAME: ISRAEL VARELA AGE: 57 SEX: M ARRIVES VIA: Walk-In INFORMANT: Patient ED PROVIDER(S): Bin Craig MD CHIEF COMPLAINT: Back pain, referred. PLAN: Disposition: Admit MEDICAL DECISION MAKING: The patient is a pleasant 57-year-old gentleman with a past medical history of lumbar disc herniation with worsening lumbar radiculopathy who presents to the emergency department for worsening symptoms after being seen by orthopedic spine yesterday with plan for scheduled surgery this coming Tuesday however he reports he contacted the office today due to his worsening symptoms and was referred to the emergency department. Patient reports that he has had difficulty urinating with more severity since his evaluation yesterday. He further reports numbness in his left and intractable pain which he cannot control despite prescribed oral narcotics. He denies any recent fevers, chills, cough congestion, diarrhea. He denies loss of bowel control. Per records the patient had his most recent MRI performed in [place] on December 31, 2022 and demonstrated disc herniation at the L4-5 level for L4-5 has a left disc fragment with moderate to severe central canal stenosis. On arrival the patient is anxious appearing, uncomfortable no distress, afebrile with stable vital signs. He appears clinically dry. He has mild tenderness of the left lower lumbar region extending distally in the sciatic distribution. He has normal strength in the left lower extremity though reflexes and clonus are difficult to assess given the patient's inability to relax his muscles. Case was discussed with neuro see orthopedic spine surgery, Dr. Ribeiro. Appreciate consultation/recommendations and we will admit the patient for pain control and likely earlier surgical date due to his intractable symptoms. WBC, H/H and platelets within normal limits. Chemistry without metabolic acidosis. Initial glucose 189. LFTs with nonspecific elevations without recent prior values for comparison with AST, ALT and alk phos, 177, 343 and 181, respectively. UA without evidence of infection. COVID-19, RNA, DEAN test was negative. Of note, he did eventually exhibit urinary retention with 800 cc of urine noted on postvoid attempt bladder scan. Hu catheter was placed. Triage Nursing notes reviewed and agree them. Prior/outside medical records reviewed Vital Signs: reviewed Differential diagnosis: Musculoskeletal, disc herniation, fracture, metastatic disease, cord compression, discitis, sciatica, cauda equina, infection, aortic disease, renal colic, gastrointestinal, as well as other pathologies. ER treatment provided: See below. Diagnostics interpreted by me: Cardiac Monitoring: An order for continuous cardiac monitoring was placed and demonstrated Normal sinus rhythm, 85 bpm, no ectopy. Laboratory studies: See below Imaging studies: See below Consultation(s): [facility] orthopedic spine, Dr. Ribeiro. HPI: The patient is a pleasant 57-year-old gentleman with a past medical history of lumbar disc herniation with worsening lumbar radiculopathy who presents to the emergency department for worsening symptoms after being seen by orthopedic spine yesterday with plan for scheduled surgery this coming Tuesday however he reports he contacted the office today due to his worsening symptoms and was referred to the emergency department. Patient reports that he has had difficulty urinating with more severity since his evaluation yesterday. He further reports numbness in his left and intractable pain which he cannot control despite prescribed oral narcotics. He denies any recent fevers, chills, cough congestion, diarrhea. He denies loss of bowel control. Per records the patient had his most recent MRI performed in [place] on December 31, 2022 and demonstrated disc herniation at the L4-5 level for L4-5 has a left disc fragment with moderate to severe central canal stenosis. ROS: See above HPI for pertinent positives & negatives. A total of 10 systems reviewed and were otherwise negative. VITALS:See Below PHYSICAL EXAMINATION: GENERAL: Awake, alert, uncomfortable-appearing, in no distress HENT: Normocephalic, atraumatic. Oropharynx with dry mucous membranes and otherwise unremarkable. EYES: Normal conjunctiva. Sclera non-icteric. NECK: Supple. No nuchal rigidity. FROM. No JVD. RESPIRATORY: Clear to auscultation. CARDIAC: Regular rate, normal rhythm. Extremities warm and well perfused. Pulses equal. ABDOMEN: Soft, non-distended. No tenderness to palpation. No rebound or guarding. No masses. RECTAL: Deferred. MUSCULOSKELETAL: Chest examination reveals no tenderness. The back is symmetrical on inspection without obvious abnormality. Mild tenderness of the left lower lumbar region extending distally in the sciatic distribution. No CVA tenderness to palpation. No joint edema. LOWER EXTREMITIES: Calves are equal size bilaterally and non-tender. No edema. No discoloration. NEURO: Normal sensorium. No sensory or motor deficits noted. LLE L5 mildly decr eased strength. Otherwise ROM limited 2/2 pain and normal strength in the left lower extremity though reflexes and clonus are difficult to assess given the patient's inability to relax his muscles. SKIN: No rash or jaundice noted. Bin Craig MD Past Med/Surg History Medical History BPH w urinary obs/LUTS Degenerative disc disease Diabetes mellitus type 1 Stable per patient GERD (gastroesophageal reflux disease) HX- stable and controlled Hyperlipidemia Hypertension Hypothyroidism Neurogenic claudication due to lumbar spinal stenosis Nocturia Osteoarthritis Severe back pain Solitary right kidney Functioning well per patient - Stage II CKD Surgical History History of carpal tunnel release of both wrists History of carpal tunnel repair BILAT History of cataract surgery BILAT History of cholecystectomy History of colonoscopy History of esophagogastroduodenoscopy (EGD) 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 History of Herson fundoplication Family History Grandfather (Maternal) Heart disease Grandfather (Paternal) Heart disease Grandmother (Maternal) Diabetes Heart disease Family history of reaction to anesthesia PT'S GRANDMOTHER STOPPED BREATHING WITH SUCCINYCHOLINE DURING A PROCEDURE Grandmother (Paternal) Heart disease Uncle Prostate cancer Diabetes Social History Smoking Status: Former smoker Cigarettes Per Day: QUIT 5 YRS AGO; Second Hand Exposure: No; Hx Alcohol Use: Yes Alcohol type: hard liquor Hx Substance Use: No Preferred Language: [place] Communication Ability: Effective Gravedigger Required: No Beliefs That Will Affect Care: None marital status: Current Living Situation: Spouse Other Information That Helps Us Care for You: No Feels Safe at Home: Yes Safety Concerns: Feels Safe At This Time Assistive Devices: Cane Allergies Allergies Allergy/AdvReac Type Severity Reaction Status Date / Time succinylcholine Allergy Severe FAMILY HX Verified 01/07/23 15:37 SEE BELOW Iodinated Contrast Media Allergy Intermediate Vomiting Verified 01/07/23 15:37 morphine Allergy Intermediate Vomiting Verified 01/07/23 15:37 meperidine [From Demerol] AdvReac Intermediate hallicinati Verified 01/07/23 15:37 ons Home Meds Home Medications Medication Instructions Recorded Confirmed aspirin 81 mg tablet,delayed 81 mg PO QAM 07/25/19 01/07/23 release (Adult Low Dose Aspirin) cholecalciferol (vitamin D3) 50 2,000 units PO QAM 07/25/19 01/07/23 mcg (2,000 unit) capsule cyclobenzaprine 5 mg tablet 5 mg PO TID PRN Muscle Spasm 07/25/19 01/07/23 lisinopril 40 mg tablet 40 mg PO QAM #90 tabs 07/25/19 01/07/23 ascorbic acid (vitamin C) 1,000 mg 1,000 mg PO QAM 01/29/20 01/07/23 tablet ammonium lactate 12 % lotion 1 applic topical BID PRN Skin 12/10/22 01/07/23 Irritation finasteride 5 mg tablet 5 mg PO HS 01/07/23 01/07/23 gabapentin 300 mg capsule 300 mg PO TID 01/07/23 01/07/23 glucosamine sulfate dipotassium Cl 1 tab PO BID 01/07/23 01/07/23 500 mg-chondroitin 400 mg capsule (Glucosamine Sulfate 2 KCL-Chondroitin) tadalafil 5 mg tablet (Cialis) 5 mg PO QAM 01/07/23 01/07/23 Previous Rx's Medication Instructions Recorded BD Insulin Syringe Ultra-Fine 0.3 #200 ea 01/21/21 mL 31 gauge x 5/16" (insulin syringe-needle U-100) insulin lispro 100 unit/mL 50 unit (0.5 mL) subcut DAILY #2 02/02/22 subcutaneous solution (Humalog vials U-100 Insulin) glucagon (human recombinant) 1 mg 1 mg IM DIRECTED PRN 06/08/22 solution for injection Hypoglycemia #1 ea blood sugar diagnostic (OneTouch #400 ea 08/11/22 Ultra Test strips) insulin glargine 100 unit/mL 23 unit (0.23 mL) subcut QPM 90 08/11/22 subcutaneous solution (Lantus days #20.7 mL U-100 Insulin) levothyroxine 125 mcg tablet 125 mcg PO DAILY #90 tabs 12/10/22 hydrocodone 5 mg-acetaminophen 325 2 tab PO Q6H PRN pain #20 tabs 01/03/23 mg tablet Results & Data (ED) Vital Signs Vital Signs - 24 hr 01/07/23 10:20 01/07/23 12:10 01/07/23 12:42 Temperature 36.1 C L Temperature Source Temporal Artery Scan Pulse Rate 87 73 69 Pulse Rate from SpO2 Sensor Respiratory Rate 20 15 Respiratory Effort / Characteristics Non-Labored Spontaneous Respiratory Depth Normal Respiratory Pattern Regular Blood Pressure 177/109 H Blood Pressure Mean 131 Blood Pressure Position Sitting Pulse Oximetry 98 100 Oxygen Delivery Method Room Air Room Air Sepsis Recent Fever Within 48 Hours No Sepsis New/Unexplained Change in Mental Status No Sepsis Action Taken by Nursing No Action Required 01/07/23 12:03 01/07/23 12:08 01/07/23 12:08 Temperature Temperature Source Pulse Rate 72 76 Pulse Rate from SpO2 Sensor 71 76 Respiratory Rate 15 16 Respiratory Effort / Characteristics Respiratory Depth Respiratory Pattern Blood Pressure 131/94 Blood Pressure Mean 106 Blood Pressure Position Pulse Oximetry 100 100 Oxygen Delivery Method Sepsis Recent Fever Within 48 Hours Sepsis New/Unexplained Change in Mental Status Sepsis Action Taken by Nursing 01/07/23 12:30 01/07/23 12:30 01/07/23 13:00 Temperature Temperature Source Pulse Rate 83 Pulse Rate from SpO2 Sensor Respiratory Rate 17 Respiratory Effort / Characteristics Respiratory Depth Respiratory Pattern Blood Pressure 135/95 158/94 H Blood Pressure Mean 108 115 Blood Pressure Position Pulse Oximetry Oxygen Delivery Method Sepsis Recent Fever Within 48 Hours Sepsis New/Unexplained Change in Mental Status Sepsis Action Taken by Nursing 01/07/23 13:00 Temperature Temperature Source Pulse Rate 73 Pulse Rate from SpO2 Sensor Respiratory Rate 18 Respiratory Effort / Characteristics Respiratory Depth Respiratory Pattern Blood Pressure Blood Pressure Mean Blood Pressure Position Pulse Oximetry Oxygen Delivery Method Sepsis Recent Fever Within 48 Hours Sepsis New/Unexplained Change in Mental Status Sepsis Action Taken by Nursing Laboratory Data Attestation: I reviewed the patient's lab results. 01/07/23 11:50 01/07/23 11:50 Lab Results 01/07/23 01/07/23 01/07/23 Range/Units 11:50 11:50 11:50 WBC 6.88 (4.8-10.8) K/ul RBC 5.68 (4.70-6.10) M/uL Hgb 17.0 (14.0-18.0) g/dl Hct 50.3 (42.0-52.0) % MCV 88.6 (80.0-100.0) fL MCH 29.9 (25.0-34.0) pg MCHC 33.8 (32.0-36.0) g/dL RDW Std Deviation 42.1 (36.4-46.3) fL RDW Coeff of Brandon 12.9 (11.5-14.5) % Plt Count 247 (130-400) K/uL MPV 11.0 (9.4-12.4) fL Immature Gran % (Auto) 0.7 % Neut % (Auto) 55.6 % Lymph % (Auto) 28.3 % [place] % (Auto) 10.2 % Eos % (Auto) 4.5 % Baso % (Auto) 0.7 % Neut # (Auto) 3.82 (1.40-6.50) K/uL Lymph # (Auto) 1.95 (1.2-3.4) K/uL [place] # (Auto) 0.70 H (0.11-0.59) K/uL Eos # (Auto) 0.31 (0-0.50) K/uL Baso # (Auto) 0.05 (0-0.2) K/uL Immature Gran # (Auto) 0.05 (0.01-0.20) K/uL Sodium 136 (136-145) mmol/L Potassium 4.4 (3.5-5.1) mmol/L Chloride 99 (98-107) mmol/L Carbon Dioxide 29 (21-32) mmol/L Anion Gap 8 (3-11) BUN 18 (6-23) mg/dl Creatinine 1.07 (0.6-1.4) mg/dl Est Cr Clr Drug Dosing 77.7 ml/min Est GFR ( Amer) 88.2 ml/min Est GFR (Non-Af Amer) 76.1 ml/min BUN/Creatinine Ratio 16.8 (10-20) Glucose 189 H (70-99(Fasting)) mg/dl Calcium 9.9 (8.6-10.3) mg/dl Magnesium 1.9 (1.7-2.4) mg/dl Total Bilirubin 0.7 (0.2-1.0) mg/dl AST 177 H (13-39) U/L ALT 343 H (7-52) U/L Alkaline Phosphatase 181 H (34-104) U/L Total Protein 7.3 (6.0-8.3) gm/dl Albumin 4.3 (3.4-5.0) gm/dl Globulin 3.0 (2.5-4.0) gm/dl Albumin/Globulin Ratio 1.4 (0.9-2) SARS-CoV-2, RNA, NAAT NEGATIVE (NEGATIVE) Administered Medications Hydromorphone HCl (Hydromorphone Inj 1 Mg/Ml Syringe) 1 mg IV Q3H PRN PRN Reason: severe pain (scale 7-10) Stop: 01/21/23 15:47 Last Admin: 01/07/23 21:04 Dose: 1 mg Documented By: Admin: 01/07/23 17:18 Dose: 1 mg Documented By: MIRANDA Acetaminophen (Ofirmev) 1,000 mg in 100 mls @ 400 mls/hr IV Q8H PRN PRN Reason: Pain Rating 1-3 & Pre PT Stop: 01/08/23 15:48 Last Admin: 01/07/23 23:05 Dose: 400 mls/hr Documented By: SIM Famotidine 20 mg/ Syringe 5 mls @ 2.5 mls/min IV DAILY [facility] Stop: 02/06/23 18:29 Last Admin: 01/07/23 18:47 Dose: 2.5 mls/min Documented By: MIRANDA Lactated Ringer's (Lr) 1,000 mls @ 75 mls/hr IV .[id number] [facility] Stop: 02/06/23 22:29 Last Admin: 01/07/23 23:00 Dose: 75 mls/hr Documented By: SIM Insulin Aspart (Insulin Aspart Per Unit Charge) 0 units SC ACHS [facility] Stop: 02/06/23 16:29 Last Admin: 01/07/23 21:08 Dose: Not Given Documented By: PREETHI Co-signed By: SIM Admin: 01/07/23 17:54 Dose: 8 units Documented By: MIRANDA Co-signed By: KYLE Insulin Glargine (Lantus Per Unit Charge) 18 units SQ BID [facility] Stop: 02/06/23 20:59 Last Admin: 01/07/23 21:12 Dose: 18 units Documented By: PREETHI Co-signed By: SIM Lorazepam (Lorazepam 0.5 Mg Tab) 0.5 mg PO Q8H PRN PRN Reason: sedation/anxiety Stop: 02/06/23 15:47 Last Admin: 01/07/23 21:04 Dose: 0.5 mg Documented By: PREETHI Oxycodone HCl (Oxycodone Hcl Ir 5 Mg Tab (Immediate Release)) 5 - 10 mg PO Q4H PRN PRN Reason: mod to severe pain Stop: 01/21/23 15:47 Last Admin: 01/07/23 21:43 Dose: 10 mg Documented By: Admin: 01/07/23 16:25 Dose: 10 mg Documented By: MIRANDA Senna/Docusate Sodium (Docusate Sodium/Senna 50/8.6mg Tab) 2 tab PO [facility] Stop: 02/06/23 20:59 Last Admin: 01/07/23 21:05 Dose: 2 tab Documented By: PREETHI Tamsulosin HCl (Tamsulosin Hcl 0.4 Mg Cap) 0.4 mg PO [facility] Stop: 02/06/23 22:19 Last Admin: 01/07/23 23:14 Dose: 0.4 mg Documented By: SIM Discontinued Medications Diazepam (Diazepam 5 Mg Tablet) 5 mg PO NOW ONE Stop: 01/07/23 11:42 Last Admin: 01/07/23 11:51 Dose: 5 mg Documented By: EMELY Gabapentin (Gabapentin 300 Mg Cap) 300 mg PO TID ISHAN Stop: 02/06/23 20:59 Last Admin: 01/07/23 21:04 Dose: 300 mg Documented By: PREETHI Sodium Chloride (Nss 1000ml) 1,000 mls @ 999 mls/hr IV .[id number] ISHAN Stop: 01/07/23 12:45 Last Infusion: 01/07/23 13:15 Dose: 0 mls/hr Documented By: Admin: 01/07/23 11:51 Dose: 999 mls/hr Documented By: EMELY Acetaminophen (Ofirmev) 1,000 mg in 100 mls @ 400 mls/hr IV NOW STA Stop: 01/07/23 11:45 Last Infusion: 01/07/23 12:12 Dose: 0 mls/hr Documented By: Admin: 01/07/23 11:51 Dose: 400 mls/hr Documented By: EMELY Sodium Chloride (Nss 1000ml) 1,000 mls @ 75 mls/hr IV .[id number] ISHAN Stop: 02/06/23 15:47 Last Infusion: 01/07/23 23:11 Dose: 0 mls/hr Documented By: Admin: 01/07/23 16:25 Dose: 75 mls/hr Documented By: MIRANDA Morphine Sulfate (Morphine Sulfate 10 Mg/Ml Carp/Vial) 6 mg IV NOW STA Stop: 01/07/23 11:32 Last Admin: 01/07/23 11:51 Dose: 6 mg Documented By: EMELY Ondansetron HCl (Ondansetron Inj 2 Mg/Ml 2 Ml Vial) 4 mg IV NOW STA Stop: 01/07/23 11:32 Last Admin: 01/07/23 11:51 Dose: 4 mg Documented By: EMELY Discharge Plan Visit Data Chief Complaint: Illness Stated Complaint: PAIN IN FRONT, FOOT IS NUMB ED Provider: Bin Craig Discharge Problem: Lumbar disc herniation with radiculopathy, Type 1 diabetes mellitus, Elevated LFTs, Acute urinary retention, Intractable low back pain Patient Disposition: Admitted As Inpatient Discharge Instructions Interventions: ED Discharge Assessment Last Done: 01/07/23 15:12
[2023-01-07] MEDS ORDERED: GABAPENTIN 300 MG CAP PO SCH (21:00)
[2023-01-07] MEDS ORDERED: LANTUS PER UNIT CHARGE SQ SCH (21:00)
[2023-01-07] MEDS: LORazepam 0.5 MG TAB PO PRN (21:04)
[2023-01-07] MEDS: DOCUSATE SODIUM/SENNA 50/8.6MG TAB PO SCH (21:05)
[2023-01-07] MEDS: LACTATED RINGER'S 1,000 ML IV SCH (23:00)
[2023-01-07] MEDS: TAMSULOSIN HCL 0.4 MG CAP PO SCH (23:14)
[2023-01-08] MEDS: LEVOTHYROXINE SODIUM 125 MCG TABLET PO SCH (05:31)
[2023-01-08] MEDS: oxyCODONE HCL IR 5 MG TAB (IMMEDIATE RELEASE) PO PRN ×2 (05:33→09:42)
[2023-01-08 06:41] LABS: Basophils # (auto) 0.06 K/uL (0-0.2); Basophils % (auto) 1.1 %; Eosinophils # (auto) 0.23 K/uL (0-0.50); Eosinophils % (auto) 4.2 %; Hematocrit (blood only) 45.6 % (42.0-52.0); Hemoglobin 15.3 g/dl (14.0-18.0); Immature Granulocytes # (auto) 0.04 K/uL (0.01-0.20); Immature Granulocytes % (auto) 0.7 %; Lymphocytes # (auto) 1.05 K/uL (1.2-3.4); Mean Corpuscular Hemoglobin 30.3 pg (25.0-34.0); Mean Corpuscular Hgb Conc 33.6 g/dL (32.0-36.0); Mean Corpuscular Volume 90.3 fL (80.0-100.0); Monocytes # (auto) 0.58 K/uL (0.11-0.59); Monocytes % (auto) 10.5 %; Neutrophils # (auto) 3.57 K/uL (1.40-6.50); Neutrophils % (auto) 64.5 %; Platelet Count 222 K/uL (130-400); RDW Coefficient of Variation 13.2 % (11.5-14.5); RDW Standard Deviation 43.7 fL (36.4-46.3); Red Blood Count 5.05 M/uL (4.70-6.10); White Blood Count 5.53 K/ul (4.8-10.8)
[2023-01-08] MEDS: HYDROmorphone INJ 1 MG/ML SYRINGE IV PRN ×4 (07:06→23:41)
[2023-01-08 07:08] LABS: BUN Creatinine Ratio 13.2 (10-20); Calcium 8.9 mg/dl (8.6-10.3); Creatinine Clr Calc Pharmacy 68.7 ml/min; Est GFR (Non-African American) 65.6 ml/min; Potassium 4.5 mmol/L (3.5-5.1)
[2023-01-08 07:21] LABS: Albumin Globulin Ratio 1.4 (0.9-2); Albumin Level 3.6 gm/dl (3.4-5.0); Bilirubin,Total 0.7 mg/dl (0.2-1.0); Globulin 2.6 gm/dl (2.5-4.0); Total Protein 6.2 gm/dl (6.0-8.3)
[2023-01-08 07:30] LABS: Prothrombin Time 10.7 Seconds (9.0-12.0)
[2023-01-08] MEDS: GABAPENTIN 100 MG CAP PO SCH ×3 (07:34→21:52)
[2023-01-08] MEDS: lisinopril 40 MG TAB PO SCH (07:34)
[2023-01-08] MEDS: FINASTERIDE 5 MG TAB PO SCH (07:35)
[2023-01-08] MEDS: LORazepam 0.5 MG TAB PO PRN ×2 (07:54→21:52)
--- NOTE | 2023-01-08 08:01 | Hospitalist Progress Note ---
Date of Service January 08, 2023 Assessment & Plan (1) Lumbar disc herniation with radiculopathy: Plan: Admitted for uncontrolled/worsening pain failing outpatient management w/ PT/OT as unable to participate Orthopedics primary Pain control/bowel regimen/PT/OT per primary service --> Of note, excessive Tylenol use (see below) --> NO FURTHER TYLENOL --> Would avoid NSAIDs at present given excessive use as well, will order PPI daily for GI proph (already on pepcid, but given aleeve/ibuprofen use will order) --> Gabapentin reduced based on renal function IVF ordered for now, consider capping after current bag Currently with LLE weakness, urinary retention requiring styles (will need voiding trial prior to discharge) Monitor symptoms/labs -- likely will require intervention given failure of outpatient conservative treatment w/ therapy and oral opiates over the past week. (2) Elevated LFTs: Plan: Patient's AST at 177, ALT at 343, and alk phos of 181 (of note, medication list cyclobenzaprine - could also be contributing, would avoid) Tylenol changed to max 2g/daily, gabapentin decreased to 100mg TID 01/07 TB wnl, no jaundice however LFTs MUCH worsened compared to prior AST 681, ALT 1009, ALP 245 No significant hypotension noted, no flexeril (on home med list) Etoh negative Hep panel pending RUQ US unremarkable Of note, with ongoing/increased pain at home inquired about tylenol/ibuprofen/nsaid use --> reported taking LOTS OF BOTH --> Patient specifically asked about Tylenol/alcohol use --> Reports taking 6 tablets of tylenol at a time over past week at a time about 3-4x a day in addition to 2 shots etoh for pain control Check Tylenol level NOW, CALL TO POISON CONTROL --> Tylenol pending Discussed w/ PC and recs for N-acetylcystein 150mg/kg over 1 hour, 50mg/kg over 4 hours, 100mg/kg over 16 hours and repeat LFTs 12 hours from last dose (likely toorrow midnight) If develops rash, stop and given steroids/benadryl They will f/u w/ nursing DISCONTINUED ALL FURTHER TYLENOL, will have pharmacy do event report Monitor LFts (3) Urinary retention: Plan: Patient follows with Nephrology for solitary right kidney 2nd to complications from unilateral hydronephrosis w/ chronic LUTS. PSA <0.5. Hx uncontrolled DM I w/ early CKD Styles placed, draining urine Continue finasteride, cialis Flomax re-initiated --> monitor for symptoms hypotension/dizziness as had in past (4) Type 1 diabetes mellitus: Plan: Pharmacy glycemic consult placed Continue to follow Pharmacy's orders (5) Hypothyroidism: Plan: Continue levothyroxine Last TSH wnl 2.819 this year (6) Hypertension: Plan: Stable Continue lisinopril (7) BPH w urinary obs/LUTS: Plan: Continue styles cath and finasteride for now , flomax as above If he fails his voiding trial then will need a Urology consult (8) Solitary right kidney: Plan: Due to previous congenital defect Renal function stable Plan Thank you for allowing hospitalist service to participate in the care of Mr Hopson Hospitalist service will follow along -- need to monitor tylenol level and poison control/possible acetylcysteine pending level Admission and Anticipated Discharge Date Admission Date: January 07, 2023 Supervising Physician Co-Signing Physician Notes The patient was not seen by me. The chart was reviewed. Case discussed with GORDON Vitale. Agree with assessment and plan Subjective eval this morning, doing alright pain ok but still significant. styles in place and urine draining passing some gas but no BM x 2 days. Discussed elevated LFTs --- he went for RUQ US this morning, but does endorse pain so bad at home this past week he was using tylenol -- about 6 tablets at a time, 3-4x a day in addition to about 2 shots to help with pain. Avoiding any further tylenol and will discontinue further dosing. No prior DT and denied drinking every day up until needing pain control. Discussed checking tylenol level/meds if needed. He is typically active vianey, prior surgery for symptoms on the right leg however doesn't remember being as sharp of a pain. Does have continued weakness to his LLE with dorsiflexion/plantar flexion. No chest pain/shortness of breath, abominal pain or nausea at present. No lightheadedness w/ flomax and will continue/monitor. Physical Exam Physical Exam: Physical Exam: General:WD/WN male sitting up in bed on phone, NAD, mild discomfort w/ movements in bed HEENT: head normocephalic, eyes anicteric, mmm, trachea midline Resp: CTA, no w/c, on room air CV: RRR, +murmur, no pitting edema/calf tednerness GI: +BS, distended, nontender : styles draining yellow urine MSK/Neuro: decreased strength dorsiflexion/plantar flexion on the left compared to right, sensation intact, pulses palpable Psych: AOX3 Results & Data Results & Data Vital Signs (Past 12 Hours) Vital Signs Temp Pulse Resp BP Pulse Ox O2 Del Method 01/08/23 07:00 36.5 C 92 H 16 125/76 99 Room Air 01/07/23 20:45 36.4 C L 85 20 134/76 99 Room Air Laboratory Results 01/08/23 01/08/23 01/08/23 Range/Units 08:19 05:34 05:34 WBC 5.53 (4.8-10.8) K/ul RBC 5.05 (4.70-6.10) M/uL Hgb 15.3 (14.0-18.0) g/dl Hct 45.6 (42.0-52.0) % MCV 90.3 (80.0-100.0) fL MCH 30.3 (25.0-34.0) pg MCHC 33.6 (32.0-36.0) g/dL RDW Std Deviation 43.7 (36.4-46.3) fL RDW Coeff of [place] 13.2 (11.5-14.5) % Plt Count 222 (130-400) K/uL MPV 11.0 (9.4-12.4) fL Immature Gran % (Auto) 0.7 % Neut % (Auto) 64.5 % Lymph % (Auto) 19.0 % [place] % (Auto) 10.5 % Eos % (Auto) 4.2 % Baso % (Auto) 1.1 % Neut # (Auto) 3.57 (1.40-6.50) K/uL Lymph # (Auto) 1.05 L (1.2-3.4) K/uL [place] # (Auto) 0.58 (0.11-0.59) K/uL Eos # (Auto) 0.23 (0-0.50) K/uL Baso # (Auto) 0.06 (0-0.2) K/uL Immature Gran # (Auto) 0.04 (0.01-0.20) K/uL PT (9.0-12.0) Seconds INR (0.9-1.1) Sodium 137 (136-145) mmol/L Potassium 4.5 (3.5-5.1) mmol/L Chloride 103 (98-107) mmol/L Carbon Dioxide 30 (21-32) mmol/L Anion Gap 4 (3-11) BUN 16 (6-23) mg/dl Creatinine 1.21 (0.6-1.4) mg/dl Est Cr Clr Drug Dosing 68.7 ml/min Est GFR ( Amer) 76.0 ml/min Est GFR (Non-Af Amer) 65.6 ml/min BUN/Creatinine Ratio 13.2 (10-20) Glucose 226 H (70-99(Fasting)) mg/dl POC Glucose 179 H (70-99) mg/dl Calcium 8.9 (8.6-10.3) mg/dl Magnesium (1.7-2.4) mg/dl Total Bilirubin 0.7 (0.2-1.0) mg/dl AST 681 H (13-39) U/L ALT 1009 H (7-52) U/L Alkaline Phosphatase 245 H (34-104) U/L Total Protein 6.2 (6.0-8.3) gm/dl Albumin 3.6 (3.4-5.0) gm/dl Globulin 2.6 (2.5-4.0) gm/dl Albumin/Globulin Ratio 1.4 (0.9-2) Urine Color Urine Appearance (Clear) Urine pH (4.5-7.5) Ur Specific [place] (1.000-1.030) Urine Protein (Negative) Urine Glucose (UA) (Negative) Urine Ketones (Negative) Urine Blood (Negative) Urine Nitrite (Negative) Urine Bilirubin (Negative) Urine Urobilinogen (Negative) Ur Leukocyte Esterase (Negative) Ethyl Alcohol mg/dL (<10.0) mg/dl Hepatitis A IgM Ab Hep Bs Antigen Hep Bs Ag Confirmation Hep B Core IgM Ab Hepatitis C Ab (EIA) Hep C Ab Signal/Cutoff SARS-CoV-2, RNA, NAAT (NEGATIVE) 01/08/23 01/08/2301/07/23 Range/Units 05:34 05:34 20:41 WBC (4.8-10.8) K/ul RBC (4.70-6.10) M/uL Hgb (14.0-18.0) g/dl Hct (42.0-52.0) % MCV (80.0-100.0) fL MCH (25.0-34.0) pg MCHC (32.0-36.0) g/dL RDW Std Deviation (36.4-46.3) fL RDW Coeff of [place] (11.5-14.5) % Plt Count (130-400) K/uL MPV (9.4-12.4) fL Immature Gran % (Auto) % Neut % (Auto) % Lymph % (Auto) % [place] % (Auto) % Eos % (Auto) % Baso % (Auto) % Neut # (Auto) (1.40-6.50) K/uL Lymph # (Auto) (1.2-3.4) K/uL [place] # (Auto) (0.11-0.59) K/uL Eos # (Auto) (0-0.50) K/uL Baso # (Auto) (0-0.2) K/uL Immature Gran # (Auto) (0.01-0.20) K/uL PT 10.7 (9.0-12.0) Seconds INR 1.0 (0.9-1.1) Sodium (136-145) mmol/L Potassium (3.5-5.1) mmol/L Chloride (98-107) mmol/L Carbon Dioxide (21-32) mmol/L Anion Gap (3-11) BUN (6-23) mg/dl Creatinine (0.6-1.4) mg/dl Est Cr Clr Drug Dosing ml/min Est GFR ( Amer) ml/min Est GFR (Non-Af Amer) ml/min BUN/Creatinine Ratio (10-20) Glucose (70-99(Fasting)) mg/dl POC Glucose 108 H (70-99) mg/dl Calcium (8.6-10.3) mg/dl Magnesium (1.7-2.4) mg/dl Total Bilirubin (0.2-1.0) mg/dl AST (13-39) U/L ALT (7-52) U/L Alkaline Phosphatase (34-104) U/L Total Protein (6.0-8.3) gm/dl Albumin (3.4-5.0) gm/dl Globulin (2.5-4.0) gm/dl Albumin/Globulin Ratio (0.9-2) Urine Color Urine Appearance (Clear) Urine pH (4.5-7.5) Ur Specific [place] (1.000-1.030) Urine Protein (Negative) Urine Glucose (UA) (Negative) Urine Ketones (Negative) Urine Blood (Negative) Urine Nitrite (Negative) Urine Bilirubin (Negative) Urine Urobilinogen (Negative) Ur Leukocyte Esterase (Negative) Ethyl Alcohol mg/dL (<10.0) mg/dl Hepatitis A IgM Ab Pending Hep Bs Antigen Pending Hep Bs Ag Confirmation Pending Hep B Core IgM Ab Pending Hepatitis C Ab (EIA) Pending Hep C Ab Signal/Cutoff Pending SARS-CoV-2, RNA, NAAT (NEGATIVE) 01/07/23 01/07/23 01/07/23 Range/Units 19:09 17:14 14:55 WBC (4.8-10.8) K/ul RBC (4.70-6.10) M/uL Hgb (14.0-18.0) g/dl Hct (42.0-52.0) % MCV (80.0-100.0) fL MCH (25.0-34.0) pg MCHC (32.0-36.0) g/dL RDW Std Deviation (36.4-46.3) fL RDW Coeff of [place] (11.5-14.5) % Plt Count (130-400) K/uL MPV (9.4-12.4) fL Immature Gran % (Auto) % Neut % (Auto) % Lymph % (Auto) % [place] % (Auto) % Eos % (Auto) % Baso % (Auto) % Neut # (Auto) (1.40-6.50) K/uL Lymph # (Auto) (1.2-3.4) K/uL [place] # (Auto) (0.11-0.59) K/uL Eos # (Auto) (0-0.50) K/uL Baso # (Auto) (0-0.2) K/uL Immature Gran # (Auto) (0.01-0.20) K/uL PT (9.0-12.0) Seconds INR (0.9-1.1) Sodium (136-145) mmol/L Potassium (3.5-5.1) mmol/L Chloride (98-107) mmol/L Carbon Dioxide (21-32) mmol/L Anion Gap (3-11) BUN (6-23) mg/dl Creatinine (0.6-1.4) mg/dl Est Cr Clr Drug Dosing ml/min Est GFR ( Amer) ml/min Est GFR (Non-Af Amer) ml/min BUN/Creatinine Ratio (10-20) Glucose (70-99(Fasting)) mg/dl POC Glucose 159 H (70-99) mg/dl Calcium (8.6-10.3) mg/dl Magnesium (1.7-2.4) mg/dl Total Bilirubin (0.2-1.0) mg/dl AST (13-39) U/L ALT (7-52) U/L Alkaline Phosphatase (34-104) U/L Total Protein (6.0-8.3) gm/dl Albumin (3.4-5.0) gm/dl Globulin (2.5-4.0) gm/dl Albumin/Globulin Ratio (0.9-2) Urine Color Yellow Urine Appearance Clear (Clear) Urine pH 7.0 (4.5-7.5) Ur Specific [place] 1.008 (1.000-1.030) Urine Protein Negative (Negative) Urine Glucose (UA) Negative (Negative) Urine Ketones Negative (Negative) Urine Blood Negative (Negative) Urine Nitrite Negative (Negative) Urine Bilirubin Negative (Negative) Urine Urobilinogen Negative (Negative) Ur Leukocyte Esterase Negative (Negative) Ethyl Alcohol mg/dL < 10.0 (<10.0) mg/dl Hepatitis A IgM Ab Hep Bs Antigen Hep Bs Ag Confirmation Hep B Core IgM Ab Hepatitis C Ab (EIA) Hep C Ab Signal/Cutoff SARS-CoV-2, RNA, NAAT (NEGATIVE) 01/07/23 01/07/23 01/07/23 Range/Units 11:50 11:50 11:50 WBC 6.88 (4.8-10.8) K/ul RBC 5.68 (4.70-6.10) M/uL Hgb 17.0 (14.0-18.0) g/dl Hct 50.3 (42.0-52.0) % MCV 88.6 (80.0-100.0) fL MCH 29.9 (25.0-34.0) pg MCHC 33.8 (32.0-36.0) g/dL RDW Std Deviation 42.1 (36.4-46.3) fL RDW Coeff of [place] 12.9 (11.5-14.5) % Plt Count 247 (130-400) K/uL MPV 11.0 (9.4-12.4) fL Immature Gran % (Auto) 0.7 % Neut % (Auto) 55.6 % Lymph % (Auto) 28.3 % [place] % (Auto) 10.2 % Eos % (Auto) 4.5 % Baso % (Auto) 0.7 % Neut # (Auto) 3.82 (1.40-6.50) K/uL Lymph # (Auto) 1.95 (1.2-3.4) K/uL [place] # (Auto) 0.70 H (0.11-0.59) K/uL Eos # (Auto) 0.31 (0-0.50) K/uL Baso # (Auto) 0.05 (0-0.2) K/uL Immature Gran # (Auto) 0.05 (0.01-0.20) K/uL PT (9.0-12.0) Seconds INR (0.9-1.1) Sodium 136 (136-145) mmol/L Potassium 4.4 (3.5-5.1) mmol/L Chloride 99 (98-107) mmol/L Carbon Dioxide 29 (21-32) mmol/L Anion Gap 8 (3-11) BUN 18 (6-23) mg/dl Creatinine 1.07 (0.6-1.4) mg/dl Est Cr Clr Drug Dosing 77.7 ml/min Est GFR ( Amer) 88.2 ml/min Est GFR (Non-Af Amer) 76.1 ml/min BUN/Creatinine Ratio 16.8 (10-20) Glucose 189 H (70-99(Fasting)) mg/dl POC Glucose (70-99) mg/dl Calcium 9.9 (8.6-10.3) mg/dl Magnesium 1.9 (1.7-2.4) mg/dl Total Bilirubin 0.7 (0.2-1.0) mg/dl AST 177 H (13-39) U/L ALT 343 H (7-52) U/L Alkaline Phosphatase 181 H (34-104) U/L Total Protein 7.3 (6.0-8.3) gm/dl Albumin 4.3 (3.4-5.0) gm/dl Globulin 3.0 (2.5-4.0) gm/dl Albumin/Globulin Ratio 1.4 (0.9-2) Urine Color Urine Appearance (Clear) Urine pH (4.5-7.5) Ur Specific [place] (1.000-1.030) Urine Protein (Negative) Urine Glucose (UA) (Negative) Urine Ketones (Negative) Urine Blood (Negative) Urine Nitrite (Negative) Urine Bilirubin (Negative) Urine Urobilinogen (Negative) Ur Leukocyte Esterase (Negative) Ethyl Alcohol mg/dL (<10.0) mg/dl Hepatitis A IgM Ab Hep Bs Antigen Hep Bs Ag Confirmation Hep B Core IgM Ab Hepatitis C Ab (EIA) Hep C Ab Signal/Cutoff SARS-CoV-2, RNA, NAAT NEGATIVE (NEGATIVE) Diagnostic Findings Liver Ultrasound 01/08/23 08:03 ULTRASOUND RIGHT UPPER QUADRANT ABDOMEN CLINICAL HISTORY: Elevated hepatic transaminases. COMPARISON STUDY: No priors. TECHNIQUE: Real-time, grayscale, and color flow sonography of the right upper quadrant of the abdomen was performed. Images are reviewed in the transverse and longitudinal planes. FINDINGS: Liver: The liver is normal in size and echotexture. There is no intrahepatic biliary ductal dilatation. The main portal vein is patent. Gallbladder: The gallbladder is surgically absent. The common bile duct measures up to 0.4 cm in diameter. Pancreas: Imaged portions of the pancreatic head are grossly normal. The majority of the pancreas was not well assessed due to overlying bowel gas. The splenic vein is patent. Right kidney: Survey images of the right kidney demonstrate normal size and echotexture. There is no hydronephrosis. Ascites: None. IMPRESSION: No acute sonographic abnormality is seen in the right upper quadrant noting status post cholecystectomy. ACT 112: Negative or not required by law. Electronically signed by: Aristeo Velásquez M.D. 01/08/2023 9:40 AM PG Care Time/CCT Total # of Minutes Spent Total Time Spent with Patient: Total time spent is greater than 50% in coordination of care (as documented) at patient's floor/unit and/or counseling patient: Coding Level of Care Code 48264 SUB INP/OBS CARE 3/50MIN Diagnoses Lumbar disc herniation with radiculopathy M51.16 Elevated LFTs R79.89 Urinary retention R33.9 Type 1 diabetes mellitus E10.9 Hypothyroidism E03.9 Hypertension I10 BPH w urinary obs/LUTS N40.1; N13.8 Solitary right kidney Q60.0
--- NOTE | 2023-01-08 08:26 | Orthopedic Progress Note ---
Date of Service January 08, 2023 Assessment & Plan (1) Lumbar disc herniation with radiculopathy: Plan: Today we will attempt physical therapy assess his progress. If he continues to decline we will strongly consider surgical intervention. Admission and Anticipated Discharge Date Admission Date: January 07, 2023 Subjective Patient is getting some pain relief with his narcotic regimen. Still has considerable left leg pain. Physical Exam Physical Exam: On exam he is currently in bed. He prefers the position. Continues to demonstrate deficits to left lower extremity. Results & Data Vital Signs (Past 12 Hours) Vital Signs Temp Pulse Resp BP Pulse Ox O2 Del Method 01/08/23 07:00 36.5 C 92 H 16 125/76 99 Room Air 01/07/23 20:45 36.4 C L 85 20 134/76 99 Room Air
[2023-01-08] MEDS ORDERED: ASPIRIN 81 MG ECTAB PO SCH (09:00)
--- NOTE | 2023-01-08 09:42 | Ultrasound Report ---
ULTRASOUND RIGHT UPPER QUADRANT ABDOMEN CLINICAL HISTORY: Elevated hepatic transaminases. COMPARISON STUDY: No priors. TECHNIQUE: Real-time, grayscale, and color flow sonography of the right upper quadrant of the abdomen was performed. Images are reviewed in the transverse and longitudinal planes. FINDINGS: Liver: The liver is normal in size and echotexture. There is no intrahepatic biliary ductal dilatatio n. The main portal vein is patent. Gallbladder: The gallbladder is surgically absent. The common bile duct measures up to 0.4 cm in diam eter. Pancreas: Imaged portions of the pancreatic head are grossly normal. The majority of the pancreas was not well assessed due to overlying bowel gas. The splenic vein is patent. Right kidney: Survey images of the right kidney demonstrate normal size and echotexture. There is no hydronephrosis. Ascites: None. IMPRESSION: No acute sonographic abnormality is seen in the right upper quadrant noting status post c holecystectomy. ACT 112: Negative or not required by law. Electronically signed by: Aristeo Velásquez M.D. 01/08/2023 9:40 AM
[2023-01-08] MEDS: INSULIN ASPART PER UNIT CHARGE SC SCH ×4 (09:47→21:53)
[2023-01-08] MEDS ORDERED: ACETYLCYSTEINE IV ONE (11:30)
[2023-01-08] MEDS ORDERED: DEXTROSE 5% IV ONE (11:30)
[2023-01-08] MEDS: PANTOprazole 40 MG TAB PO SCH (11:31)
[2023-01-08] MEDS: FAMOTIDINE 20 MG in SYRINGE 3 ML IV SCH (12:04)
[2023-01-08] MEDS ORDERED: DEXTROSE 5% IV SCH (12:40)
[2023-01-08] MEDS ORDERED: ACETYLCYSTEINE IV SCH (12:40)
--- NOTE | 2023-01-08 14:10 | Pharmacy Report ---
Pharmacy Glycemic Short Note 2 - Date of Service January 08, 2023 - Glycemic Short BSG Results (Last 24 hours): 01/07/23 01/07/23 01/08/23 17:14 20:41 05:34 Glucose 226 H POC Glucose 159 H 108 H 01/08/23 01/08/23 08:19 12:03 Glucose POC Glucose 179 H 157 H OUTPATIENT ANTIDIABETIC REGIMEN: * Lantus 23 units Qpm, Humalog - CF 55 / CR with breakfast 5, with lunch 10, with dinner 15 * A1c 7.8% ASSESSMENT: * 57 year old admitted with back pain, type 1 DM. No plans yet for surgery. Pharmacy consulted for glycemic management * Patient received 26 units of insulin yesterday, of which 18 units were basal insulin * Fasting BSG 226 mg/dL - will increase basal today closer to home amount * Will adjust novolog based upon home parameters PLAN FOR INPATIENT GLYCEMIC CONTROL: * Hold outpatient oral diabetes medications * Basal insulin * Lantus 23 units Qpm * Bolus insulin * NovoLog per scale ACHS or Q6hrs while NPO * Goal Range: Low 110 mg/dL - High 140 mg/dL * Correction Factor: 30 mg/dL/unit * Nutritional / Prandial insulin per carb ratio of 1 unit per 10 grams CHO consumed - CR 15 with dinner
[2023-01-08] MEDS: LACTATED RINGER'S 1,000 ML IV SCH (15:27)
[2023-01-08] MEDS ORDERED: LORazepam 2 MG/1 ML VIAL IV PRN (16:58)
[2023-01-08] MEDS ORDERED: AcetylCYSTEINE 7,900 MG in DEXTROSE 5% 1,000 ML IV SCH (17:00)
[2023-01-08] MEDS ORDERED: LANTUS PER UNIT CHARGE SQ SCH (21:00)
[2023-01-08] MEDS: DOCUSATE SODIUM/SENNA 50/8.6MG TAB PO SCH (21:52)
[2023-01-08] MEDS: TAMSULOSIN HCL 0.4 MG CAP PO SCH (21:52)
[2023-01-09] MEDS: LACTATED RINGER'S 1,000 ML IV SCH (02:03)
[2023-01-09] MEDS: HYDROmorphone INJ 1 MG/ML SYRINGE IV PRN ×5 (02:56→21:39)
[2023-01-09 04:16] LABS: HBSAG NON-REACTIVE (NON-REACTIVE); Hepatitis A Antibody IgM NON-REACTIVE (NON-REACTIVE); Hepatitis B Core Antibody IgM NON-REACTIVE (NON-REACTIVE)
[2023-01-09] MEDS: LEVOTHYROXINE SODIUM 125 MCG TABLET PO SCH (06:09)
[2023-01-09 06:11] LABS: Basophils # (auto) 0.07 K/uL (0-0.2); Eosinophils # (auto) 0.73 K/uL (0-0.50); Eosinophils % (auto) 10.2 %; Hemoglobin 15.9 g/dl (14.0-18.0); Immature Granulocytes # (auto) 0.04 K/uL (0.01-0.20); Immature Granulocytes % (auto) 0.6 %; Lymphocytes # (auto) 1.64 K/uL (1.2-3.4); Lymphocytes % (auto) 22.9 %; Mean Corpuscular Hemoglobin 30.3 pg (25.0-34.0); Mean Corpuscular Hgb Conc 34.6 g/dL (32.0-36.0); Mean Corpuscular Volume 87.6 fL (80.0-100.0); Mean Platelet Volume 10.9 fL (9.4-12.4); Monocytes # (auto) 0.73 K/uL (0.11-0.59); Monocytes % (auto) 10.2 %; Neutrophils # (auto) 3.95 K/uL (1.40-6.50); Neutrophils % (auto) 55.1 %; Platelet Count 224 K/uL (130-400); RDW Coefficient of Variation 13.2 % (11.5-14.5); RDW Standard Deviation 42.7 fL (36.4-46.3); Red Blood Count 5.25 M/uL (4.70-6.10); White Blood Count 7.16 K/ul (4.8-10.8)
[2023-01-09 06:33] LABS: Calcium 9.2 mg/dl (8.6-10.3); Creatinine Clr Calc Pharmacy 88.4 ml/min; Est GFR (African American) 103.2 ml/min; Potassium 4.3 mmol/L (3.5-5.1)
[2023-01-09 06:39] LABS: INR 1.1 (0.9-1.1); Prothrombin Time 11.4 Seconds (9.0-12.0)
[2023-01-09 06:40] LABS: Albumin Level 3.8 gm/dl (3.4-5.0); Bilirubin Direct 0.1 mg/dl (0-0.2); Bilirubin,Total 0.7 mg/dl (0.2-1.0); Total Protein 6.6 gm/dl (6.0-8.3)
[2023-01-09] MEDS ORDERED: INSULIN ASPART PER UNIT CHARGE SC SCH (07:30)
--- NOTE | 2023-01-09 08:03 | Hospitalist Progress Note ---
Date of Service January 09, 2023 Assessment & Plan (1) Lumbar disc herniation with radiculopathy: Plan: Admitted for uncontrolled/worsening pain failing outpatient management w/ PT/OT as unable to participate Orthopedics primary Pain control/antiemetics prn/bowel regimen/PT/OT DISCONTINUED ALL TYLENOL -- poison control as below, discussed avoiding excessive use w/ patient PPI for GI prophylaxis given NSAID use Per primary, hoping to be able to do surgery tomorrow Monitor symptoms/labs -- likely will require intervention given failure of outpatient conservative treatment w/ therapy and oral opiates over the past week. (2) Elevated LFTs: Plan: Patient's AST at 177, ALT at 343, and alk phos of 181 (of note, medication list cyclobenzaprine - could also be contributing, would avoid) Tylenol changed to max 2g/daily, gabapentin decreased to 100mg TID 01/07 TB wnl, no jaundice however LFTs MUCH worsened compared to prior AST 681, ALT 1009, ALP 245 No significant hypotension noted, no flexeril (on home med list) Etoh negative Hep panel pending RUQ US unremarkable Of note, with ongoing/increased pain at home inquired about tylenol/ibuprofen/nsaid use --> reported taking LOTS OF BOTH --> Patient specifically asked about Tylenol/alcohol use --> Reports taking 6 tablets of Tylenol at a time over past week at a time about 3-4x a day in addition to 2 shots etoh for pain control Check Tylenol level NOW <4, CALLED POISON CONTROL Discussed w/ PC and recs for N-acetylcystein 150mg/kg over 1 hour, 50mg/kg over 4 hours, 100mg/kg over 16 hours and repeat LFTs 12 hours from last dose Repeat LFTs trending down No rash, but feeling itchy -- monitor for any rash and would need to stop/steroids/benadryl Will order dose benadryl 25mg IV x 1 now and monitor No further tylenol ordered, all others discontinued Montior LFTs in AM AWSS/ativan available prn as well (3) Urinary retention: Plan: Patient follows with Nephrology for solitary right kidney 2nd to complications from unilateral hydronephrosis w/ chronic LUTS. PSA <0.5. Hx uncontrolled DM I w/ early CKD Styles placed, draining urine Continue finasteride, Cialis Flomax re-initiated --> monitor for symptoms hypotension/dizziness as had in past (4) Type 1 diabetes mellitus: Plan: Pharmacy glycemic consult placed Continue to follow Pharmacy's orders (5) Hypothyroidism: Plan: Continue levothyroxine Last TSH wnl 2.819 this year (6) Hypertension: Plan: Stable Continue lisinopril (7) BPH w urinary obs/LUTS: Plan: Continue styles cath and finasteride for now , flomax as above If he fails his voiding trial then will need a Urology consult (8) Solitary right kidney: Plan: Due to previous congenital defect Renal function stable Plan Thank you for allowing hospitalist service to participate in the care of Mr Hopson Hospitalist service will follow along -- monitor LFTs on repeat/for any rashes/need for steroids NPO at midnight for hopeful surgical intervention tomorrow Admission and Anticipated Discharge Date Admission Date: January 07, 2023 Supervising Physician Co-Signing Physician Notes The patient was not seen by me. The chart was reviewed. Case discussed with GORDON Vitale. Agree with assessment and plan Subjective eval this morning, at bedside pain w/ movements, reports some control better control w/ ativan and will use as needed getting NAC, poison control following no rash at present but does feel itchy -- discussed benadryl x 1 now and to monitor for any rash/alert nursing if occurs. Some feeling warm, states if his BSGs elevated he does feel flushed. Discussed if continued feeling like that to have RN check BSG sooner. Physical Exam Physical Exam: Physical Exam: General:WD/WN male sitting up in bed, at bedside, NAD at rest HEENT: head normocephalic, eyes anicteric, mmm, trachea midline Resp: CTA, no w/c, on room air CV: RRR, +murmur, no pitting edema/calf tenderness GI: +BS, distended, nontender : styles draining yellow urine MSK/Neuro: decreased strength dorsiflexion/plantar flexion on the left compared to right, sensation intact, pulses palpable Psych: AOX3 Skin: no obvious rashes/lesions, but reports feeling itchy Results & Data Results & Data Vital Signs (Past 12 Hours) Vital Signs Temp Pulse Resp BP Pulse Ox O2 Del Method 01/09/23 07:58 36.3 C L 79 20 135/83 100 Room Air 01/08/23 22:30 36.7 C 89 16 149/77 H 97 Room Air Laboratory Results 01/09/23 01/09/23 01/09/23 Range/Units 05:43 05:43 05:43 WBC (4.8-10.8) K/ul RBC (4.70-6.10) M/uL Hgb (14.0-18.0) g/dl Hct (42.0-52.0) % MCV (80.0-100.0) fL MCH (25.0-34.0) pg MCHC (32.0-36.0) g/dL RDW Std Deviation (36.4-46.3) fL RDW Coeff of Brandon (11.5-14.5) % Plt Count (130-400) K/uL MPV (9.4-12.4) fL Immature Gran % (Auto) % Neut % (Auto) % Lymph % (Auto) % Wilkes % (Auto) % Eos % (Auto) % Baso % (Auto) % Neut # (Auto) (1.40-6.50) K/uL Lymph # (Auto) (1.2-3.4) K/uL Wilkes # (Auto) (0.11-0.59) K/uL Eos # (Auto) (0-0.50) K/uL Baso # (Auto) (0-0.2) K/uL Immature Gran # (Auto) (0.01-0.20) K/uL PT 11.4 (9.0-12.0) Seconds INR 1.1 (0.9-1.1) Sodium 136 (136-145) mmol/L Potassium 4.3 (3.5-5.1) mmol/L Chloride 102 (98-107) mmol/L Carbon Dioxide 28 (21-32) mmol/L Anion Gap 6 (3-11) BUN 16 (6-23) mg/dl Creatinine 0.94 (0.6-1.4) mg/dl Est Cr Clr Drug Dosing 88.4 ml/min Est GFR ( Amer) 103.2 ml/min Est GFR (Non-Af Amer) 89.0 ml/min BUN/Creatinine Ratio 17.0 (10-20) Glucose 206 H (70-99(Fasting)) mg/dl POC Glucose (70-99) mg/dl Calcium 9.2 (8.6-10.3) mg/dl Total Bilirubin 0.7 (0.2-1.0) mg/dl Direct Bilirubin 0.1 (0-0.2) mg/dl AST 114 H (13-39) U/L ALT 675 H (7-52) U/L Alkaline Phosphatase 222 H (34-104) U/L Total Protein 6.6 (6.0-8.3) gm/dl Albumin 3.8 (3.4-5.0) gm/dl Acetaminophen (10-30) ug/ml Hepatitis A IgM Ab (NON-REACTIVE) Hep Bs Antigen (NON-REACTIVE) Hep Bs Ag Confirmation Hep B Core IgM Ab (NON-REACTIVE) Hepatitis C Ab (EIA) (NON-REACTIVE) Hep C Ab Signal/Cutoff (<1.00) 01/09/23 01/08/23 01/08/23 Range/Units 05:43 21:05 17:19 WBC 7.16 (4.8-10.8) K/ul RBC 5.25 (4.70-6.10) M/uL Hgb 15.9 (14.0-18.0) g/dl Hct 46.0 (42.0-52.0) % MCV 87.6 (80.0-100.0) fL MCH 30.3 (25.0-34.0) pg MCHC 34.6 (32.0-36.0) g/dL RDW Std Deviation 42.7 (36.4-46.3) fL RDW Coeff of Brandon 13.2 (11.5-14.5) % Plt Count 224 (130-400) K/uL MPV 10.9 (9.4-12.4) fL Immature Gran % (Auto) 0.6 % Neut % (Auto) 55.1 % Lymph % (Auto) 22.9 % Wilkes % (Auto) 10.2 % Eos % (Auto) 10.2 % Baso % (Auto) 1.0 % Neut # (Auto) 3.95 (1.40-6.50) K/uL Lymph # (Auto) 1.64 (1.2-3.4) K/uL Wilkes # (Auto) 0.73 H (0.11-0.59) K/uL Eos # (Auto) 0.73 H (0-0.50) K/uL Baso # (Auto) 0.07 (0-0.2) K/uL Immature Gran # (Auto) 0.04 (0.01-0.20) K/uL PT (9.0-12.0) Seconds INR (0.9-1.1) Sodium (136-145) mmol/L Potassium (3.5-5.1) mmol/L Chloride (98-107) mmol/L Carbon Dioxide (21-32) mmol/L Anion Gap (3-11) BUN (6-23) mg/dl Creatinine (0.6-1.4) mg/dl Est Cr Clr Drug Dosing ml/min Est GFR ( Amer) ml/min Est GFR (Non-Af Amer) ml/min BUN/Creatinine Ratio (10-20) Glucose (70-99(Fasting)) mg/dl POC Glucose 253 H 266 H (70-99) mg/dl Calcium (8.6-10.3) mg/dl Total Bilirubin (0.2-1.0) mg/dl Direct Bilirubin (0-0.2) mg/dl AST (13-39) U/L ALT (7-52) U/L Alkaline Phosphatase (34-104) U/L Total Protein (6.0-8.3) gm/dl Albumin (3.4-5.0) gm/dl Acetaminophen (10-30) ug/ml Hepatitis A IgM Ab (NON-REACTIVE) Hep Bs Antigen (NON-REACTIVE) Hep Bs Ag Confirmation Hep B Core IgM Ab (NON-REACTIVE) Hepatitis C Ab (EIA) (NON-REACTIVE) Hep C Ab Signal/Cutoff (<1.00) 01/08/23 01/08/23 01/08/23 Range/Units 12:03 10:44 08:19 WBC (4.8-10.8) K/ul RBC (4.70-6.10) M/uL Hgb (14.0-18.0) g/dl Hct (42.0-52.0) % MCV (80.0-100.0) fL MCH (25.0-34.0) pg MCHC (32.0-36.0) g/dL RDW Std Deviation (36.4-46.3) fL RDW Coeff of Brandon (11.5-14.5) % Plt Count (130-400) K/uL MPV (9.4-12.4) fL Immature Gran % (Auto) % Neut % (Auto) % Lymph % (Auto) % Wilkes % (Auto) % Eos % (Auto) % Baso % (Auto) % Neut # (Auto) (1.40-6.50) K/uL Lymph # (Auto) (1.2-3.4) K/uL Wilkes # (Auto) (0.11-0.59) K/uL Eos # (Auto) (0-0.50) K/uL Baso # (Auto) (0-0.2) K/uL Immature Gran # (Auto) (0.01-0.20) K/uL PT (9.0-12.0) Seconds INR (0.9-1.1) Sodium (136-145) mmol/L Potassium (3.5-5.1) mmol/L Chloride (98-107) mmol/L Carbon Dioxide (21-32) mmol/L Anion Gap (3-11) BUN (6-23) mg/dl Creatinine (0.6-1.4) mg/dl Est Cr Clr Drug Dosing ml/min Est GFR ( Amer) ml/min Est GFR (Non-Af Amer) ml/min BUN/Creatinine Ratio (10-20) Glucose (70-99(Fasting)) mg/dl POC Glucose 157 H 179 H (70-99) mg/dl Calcium (8.6-10.3) mg/dl Total Bilirubin (0.2-1.0) mg/dl Direct Bilirubin (0-0.2) mg/dl AST (13-39) U/L ALT (7-52) U/L Alkaline Phosphatase (34-104) U/L Total Protein (6.0-8.3) gm/dl Albumin (3.4-5.0) gm/dl Acetaminophen 4 L (10-30) ug/ml Hepatitis A IgM Ab (NON-REACTIVE) Hep Bs Antigen (NON-REACTIVE) Hep Bs Ag Confirmation Hep B Core IgM Ab (NON-REACTIVE) Hepatitis C Ab (EIA) (NON-REACTIVE) Hep C Ab Signal/Cutoff (<1.00) 01/08/23 Range/Units 05:34 WBC (4.8-10.8) K/ul RBC (4.70-6.10) M/uL Hgb (14.0-18.0) g/dl Hct (42.0-52.0) % MCV (80.0-100.0) fL MCH (25.0-34.0) pg MCHC (32.0-36.0) g/dL RDW Std Deviation (36.4-46.3) fL RDW Coeff of Brandon (11.5-14.5) % Plt Count (130-400) K/uL MPV (9.4-12.4) fL Immature Gran % (Auto) % Neut % (Auto) % Lymph % (Auto) % Wilkes % (Auto) % Eos % (Auto) % Baso % (Auto) % Neut # (Auto) (1.40-6.50) K/uL Lymph # (Auto) (1.2-3.4) K/uL Wilkes # (Auto) (0.11-0.59) K/uL Eos # (Auto) (0-0.50) K/uL Baso # (Auto) (0-0.2) K/uL Immature Gran # (Auto) (0.01-0.20) K/uL PT (9.0-12.0) Seconds INR (0.9-1.1) Sodium (136-145) mmol/L Potassium (3.5-5.1) mmol/L Chloride (98-107) mmol/L Carbon Dioxide (21-32) mmol/L Anion Gap (3-11) BUN (6-23) mg/dl Creatinine (0.6-1.4) mg/dl Est Cr Clr Drug Dosing ml/min Est GFR ( Amer) ml/min Est GFR (Non-Af Amer) ml/min BUN/Creatinine Ratio (10-20) Glucose (70-99(Fasting)) mg/dl POC Glucose (70-99) mg/dl Calcium (8.6-10.3) mg/dl Total Bilirubin (0.2-1.0) mg/dl Direct Bilirubin (0-0.2) mg/dl AST (13-39) U/L ALT (7-52) U/L Alkaline Phosphatase (34-104) U/L Total Protein (6.0-8.3) gm/dl Albumin (3.4-5.0) gm/dl Acetaminophen (10-30) ug/ml Hepatitis A IgM Ab NON-REACTIVE (NON-REACTIVE) Hep Bs Antigen NON-REACTIVE (NON-REACTIVE) Hep Bs Ag Confirmation TNP Hep B Core IgM Ab NON-REACTIVE (NON-REACTIVE) Hepatitis C Ab (EIA) NON-REACTIVE (NON-REACTIVE) Hep C Ab Signal/Cutoff 0.03 (<1.00) PG Care Time/CCT Total # of Minutes Spent Total Time Spent with Patient: Total time spent is greater than 50% in coordination of care (as documented) at patient's floor/unit and/or counseling patient: Coding Level of Care Code 66002 SUB INP/OBS CARE 3/50MIN Diagnoses Lumbar disc herniation with radiculopathy M51.16 Elevated LFTs R79.89 Urinary retention R33.9 Type 1 diabetes mellitus E10.9 Hypothyroidism E03.9 Hypertension I10 BPH w urinary obs/LUTS N40.1; N13.8 Solitary right kidney Q60.0
[2023-01-09] MEDS: THIAMINE HCL 100 MG in SYRINGE 9 ML IV SCH (08:38)
[2023-01-09] MEDS: PANTOprazole 40 MG TAB PO SCH (08:38)
[2023-01-09] MEDS: lisinopril 40 MG TAB PO SCH (08:38)
[2023-01-09] MEDS: FINASTERIDE 5 MG TAB PO SCH (08:38)
[2023-01-09] MEDS: GABAPENTIN 100 MG CAP PO SCH ×3 (08:49→21:39)
[2023-01-09] MEDS: FAMOTIDINE 20 MG in SYRINGE 3 ML IV SCH (08:49)
--- NOTE | 2023-01-09 09:46 | Orthopedic Progress Note ---
Date of Service January 09, 2023 Assessment & Plan (1) Lumbar disc herniation with radiculopathy: Plan: This time his liver function tests are improving. He is requiring IV narcotics to control his pain. I will make him n.p.o. after midnight and hopefully he will be stable for surgery tomorrow. Admission and Anticipated Discharge Date Admission Date: January 07, 2023 Subjective Patient continues to have severe left leg pain with weakness. Physical Exam Physical Exam: Patient is not distressed. Has foot drop on the left. Decreased sensation. Results & Data Vital Signs (Past 12 Hours) Vital Signs Temp Pulse Resp BP Pulse Ox O2 Del Method 01/09/23 07:58 36.3 C L 79 20 135/83 100 Room Air 01/08/23 22:30 36.7 C 89 16 149/77 H 97 Room Air
[2023-01-09] MEDS ORDERED: diphenhydrAMINE 50 MG/ML VIAL IV STA (10:21)
[2023-01-09] MEDS: INSULIN ASPART PER UNIT CHARGE SC SCH ×3 (13:33→21:45)
[2023-01-09] MEDS ORDERED: LANTUS PER UNIT CHARGE SQ SCH (17:30)
[2023-01-09] MEDS: oxyCODONE HCL IR 5 MG TAB (IMMEDIATE RELEASE) PO PRN (19:55)
[2023-01-09] MEDS: DOCUSATE SODIUM/SENNA 50/8.6MG TAB PO SCH (21:39)
[2023-01-09] MEDS: TAMSULOSIN HCL 0.4 MG CAP PO SCH (21:39)
[2023-01-09] MEDS ORDERED: GLUCAGON FOR INJ 1 MG VIAL IM PRN (21:45)
[2023-01-09] MEDS ORDERED: DEXTROSE 50% 50 ML SYRINGE IV PRN (21:45)
[2023-01-09] MEDS ORDERED: CARBOHYDRATES FOR HYPOGLYCEMIA PO PRN (21:45)
[2023-01-09] MEDS ORDERED: GLUCOSE 40% GEL 15 GM TUBE PO PRN (21:45)
[2023-01-09] MEDS ORDERED: GLUCOSE 10 TAB/TUBE PO PRN (21:45)
[2023-01-10] MEDS: INSULIN ASPART PER UNIT CHARGE SC SCH ×5 (00:07→21:22)
[2023-01-10] MEDS ORDERED: INSULIN ASPART PER UNIT CHARGE SC ONE (02:00)
[2023-01-10] MEDS: HYDROmorphone INJ 1 MG/ML SYRINGE IV PRN ×6 (02:13→23:56)
[2023-01-10] MEDS: LEVOTHYROXINE SODIUM 125 MCG TABLET PO SCH (05:16)
[2023-01-10] MEDS: GABAPENTIN 100 MG CAP PO SCH ×3 (08:32→21:23)
[2023-01-10] MEDS: lisinopril 40 MG TAB PO SCH (08:32)
[2023-01-10] MEDS: PANTOprazole 40 MG TAB PO SCH (08:36)
[2023-01-10] MEDS: THIAMINE HCL 100 MG in SYRINGE 9 ML IV SCH (08:36)
[2023-01-10] MEDS: FINASTERIDE 5 MG TAB PO SCH (08:36)
[2023-01-10] MEDS: FAMOTIDINE 20 MG in SYRINGE 3 ML IV SCH (08:37)
[2023-01-10 08:42] LABS: Basophils # (auto) 0.09 K/uL (0-0.2); Eosinophils # (auto) 0.73 K/uL (0-0.50); Eosinophils % (auto) 8.5 %; Hematocrit (blood only) 44.2 % (42.0-52.0); Hemoglobin 15.2 g/dl (14.0-18.0); Immature Granulocytes # (auto) 0.05 K/uL (0.01-0.20); Immature Granulocytes % (auto) 0.6 %; Lymphocytes # (auto) 1.44 K/uL (1.2-3.4); Lymphocytes % (auto) 16.7 %; Mean Corpuscular Hemoglobin 30.2 pg (25.0-34.0); Mean Corpuscular Hgb Conc 34.4 g/dL (32.0-36.0); Mean Corpuscular Volume 87.7 fL (80.0-100.0); Mean Platelet Volume 11.1 fL (9.4-12.4); Monocytes # (auto) 0.83 K/uL (0.11-0.59); Monocytes % (auto) 9.6 %; Neutrophils # (auto) 5.47 K/uL (1.40-6.50); Neutrophils % (auto) 63.6 %; Platelet Count 231 K/uL (130-400); RDW Coefficient of Variation 13.4 % (11.5-14.5); RDW Standard Deviation 43.2 fL (36.4-46.3); Red Blood Count 5.04 M/uL (4.70-6.10); White Blood Count 8.61 K/ul (4.8-10.8)
[2023-01-10 08:58] LABS: Prothrombin Time 10.7 Seconds (9.0-12.0)
[2023-01-10 09:10] LABS: Albumin Level 3.7 gm/dl (3.4-5.0); BUN Creatinine Ratio 18.8 (10-20); Bilirubin Direct 0.1 mg/dl (0-0.2); Bilirubin,Total 0.5 mg/dl (0.2-1.0); Calcium 9.1 mg/dl (8.6-10.3); Creatinine Clr Calc Pharmacy 82.3 ml/min; Est GFR (African American) 94.6 ml/min; Est GFR (Non-African American) 81.6 ml/min; Potassium 4.4 mmol/L (3.5-5.1); Total Protein 6.3 gm/dl (6.0-8.3)
--- NOTE | 2023-01-10 11:22 | Orthopedic Progress Note ---
Date of Service January 10, 2023 Assessment & Plan (1) Lumbar disc herniation with radiculopathy: Plan: At this time unfortunately had to cancel his procedure secondary to his elevated liver function tests. As they have been trending downward we anticipate tomorrow will be a safe window to operate. Admission and Anticipated Discharge Date Admission Date: January 07, 2023 Subjective Patient's continues to have severe left leg pain unable to sleep. Requiring IV narcotics. Physical Exam Physical Exam: Patient nondistressed with weakness to left lower extremity Results & Data Vital Signs (Past 12 Hours) Vital Signs Temp Pulse Resp BP Pulse Ox O2 Del Method 01/10/23 07:45 Room Air 01/10/23 08:13 36.6 C 90 15 140/80 97 Room Air
--- NOTE | 2023-01-10 12:41 | Hospitalist Progress Note ---
Date of Service January 10, 2023 Assessment & Plan (1) Lumbar disc herniation with radiculopathy: Plan: Admitted for uncontrolled/worsening pain failing outpatient management w/ PT/OT as unable to participate Pain control/antiemetics prn/bowel regimen/PT/OT Patient with Tylenol induced liver injury and transaminitis, now improving Do not use any Tylenol or Tylenol containing products at this time Completed NAC protocol Trend CMP Surgery delayed until 01/07 due to continued elevation in LFTs AST/ALT are rapidly downtrending. Hepatitis panel is negative. Discussed risk/benefits of delaying surgery and trend versus aggressive intervention, reasonable to delay for 1 additional day trend CMP, and proceed with surgical intervention if improving. (2) Elevated LFTs: Plan: Patient's AST at 177, ALT at 343, and alk phos of 181 (of note, medication list cyclobenzaprine - could also be contributing, would avoid) Do not use Tylenol at this time, gabapentin decreased to 100mg TID 01/07 ALT peak of 1009, AST peak of 681. Downtrending to 420/40 on 01/10. Tylenol induced as patient was taking 6 tablets of Tylenol at once 3-4 times a day and up to 2 shots of alcohol per day for pain control Etoh negative Hep panel negative RUQ US unremarkable (3) Urinary retention: Plan: Patient follows with Nephrology for solitary right kidney 2nd to complications from unilateral hydronephrosis w/ chronic LUTS. PSA <0.5. Hx uncontrolled DM I w/ early CKD Styles placed, draining urine Continue finasteride, Cialis Flomax re-initiated --> monitor for symptoms hypotension/dizziness as had in past (4) Type 1 diabetes mellitus: Plan: Pharmacy glycemic consult placed Continue to follow Pharmacy's orders (5) Hypothyroidism: Plan: Continue levothyroxine Last TSH wnl 2.819 this year (6) Hypertension: Plan: Stable Continue lisinopril (7) BPH w urinary obs/LUTS: Plan: Continue styles cath and finasteride for now , flomax as above If he fails his voiding trial then will need a Urology consult (8) Solitary right kidney: Plan: Due to previous congenital defect Renal function stable Plan Thank you for allowing hospitalist service to participate in the care of Mr Hopson Hospitalist service will follow along -- monitor LFTs on repeat/for any rashes/need for steroids NPO, anticipate surgical intervention 01/03 Admission and Anticipated Discharge Date Admission Date: January 07, 2023 Subjective Patient continues to have left-sided hip and leg pain which is similar to the pain that brought him in. He is not having any abdominal pain, right upper quadrant pain, fever, chills, sweats, nausea, or vomiting. He is eager to get his surgery done, but has no other questions or concerns at the bedside. He reports that prior to this he would generally drink 1 drink in the evening, and 1 week and no went 3 days without alcohol with no tremors or signs of withdrawal. Had been taking Tylenol as previously documented for pain. Acute liver panel was negative. Patient understands his liver enzymes are downtrending but still not yet normal Review of Systems Review of Systems: All systems reviewed & are unremarkable except as noted in HPI & below Physical Exam Physical Exam: General: A&Ox3. NAD. Cooperative. HEENT: Atraumatic, normocephalic. Vision/hearing intact. Scleral icterus/jaundice is not breath Pulm: CTAB A&P. -wheezes, -rales, -rhonchi. Symmetrical chest rise. No increased work of breathing. No respiratory distress. Cardiac: RRR, +sm. Radial pulses intact and symmetrical. Abdominal: Nontender, nondistended, soft. BS present. Extremities: Decreased strength to hip flexion, and ankle dorsiflexi on/plantarflexion on the left leg with additional pain limitation. Sensation to soft touch is intact bilaterally Results & Data Results & Data Vital Signs (Past 12 Hours) Vital Signs Temp Pulse Resp BP Pulse Ox O2 Del Method 01/10/23 07:45 Room Air 01/10/23 08:13 36.6 C 90 15 140/80 97 Room Air PG Care Time/CCT Total # of Minutes Spent Total Time Spent with Patient: Total time spent is greater than 50% in coordination of care (as documented) at patient's floor/unit and/or counseling patient: Coding Level of Care Code 03422 SUB INP/OBS CARE 350MIN Diagnoses Lumbar disc herniation with radiculopathy M51.16 Elevated LFTs R79.89 Urinary retention R33.9 Type 1 diabetes mellitus E10.9 Hypothyroidism E03.9 Hypertension I10 BPH w urinary obs/LUTS N40.1; N13.8 Solitary right kidney Q60.0
--- NOTE | 2023-01-10 14:03 | Pharmacy Report ---
Pharmacy Glycemic Short Note 2 - Date of Service January 10, 2023 - Glycemic Short BSG Results (Last 24 hours): 01/09/23 01/09/23 01/09/23 17:17 21:09 21:10 Glucose POC Glucose 107 H 46 L* 48 L* 01/09/23 01/09/23 01/10/23 21:32 23:58 02:04 Glucose POC Glucose 71 183 H 222 H 01/10/23 01/10/23 01/10/23 05:40 07:59 12:16 Glucose 260 H POC Glucose 186 H 291 H OUTPATIENT ANTIDIABETIC REGIMEN: * Lantus 23 units Qpm, Humalog - CF 55 / CR with breakfast 5, with lunch 10, with dinner 15 * A1c 7.8% ASSESSMENT: 01/10 * Patient was NPO at midnight for surgery this AM. Did have an episode of hypoglycemia at bedtime. Parameters were loosened at that time. * Fasting this AM 186 mg/dL- continue 23 units of lantus for now * BSG elevated at lunch- tightened carb ratio back to 9 and goal range to upper end 160 mg/dL. Diet now ordered 01/08 * 57 year old admitted with back pain, type 1 DM. No plans yet for surgery. Pharmacy consulted for glycemic management * Patient received 26 units of insulin yesterday, of which 18 units were basal insulin * Fasting BSG 226 mg/dL - will increase basal today closer to home amount * Will adjust novolog based upon home parameters PLAN FOR INPATIENT GLYCEMIC CONTROL: * Hold outpatient oral diabetes medications * Basal insulin * Lantus 23 units Qpm * Bolus insulin * NovoLog per scale ACHS or Q6hrs while NPO * Goal Range: Low 110 mg/dL - High 140 mg/dL * Correction Factor: 30 mg/dL/unit * Nutritional / Prandial insulin per carb ratio of 1 unit per 9 grams CHO consumed
[2023-01-10] MEDS: oxyCODONE HCL IR 5 MG TAB (IMMEDIATE RELEASE) PO PRN (15:12)
[2023-01-10] MEDS: LANTUS PER UNIT CHARGE SQ SCH (17:55)
[2023-01-10] MEDS: DOCUSATE SODIUM/SENNA 50/8.6MG TAB PO SCH (21:22)
[2023-01-10] MEDS: TAMSULOSIN HCL 0.4 MG CAP PO SCH (21:23)
[2023-01-10] MEDS ORDERED: Nursing to Pharmacy Communication SCH (23:45)
[2023-01-11] MEDS: INSULIN ASPART PER UNIT CHARGE SC SCH ×5 (00:07→21:03)
[2023-01-11] MEDS: HYDROmorphone INJ 1 MG/ML SYRINGE IV PRN ×2 (04:39→23:57)
[2023-01-11] MEDS: LEVOTHYROXINE SODIUM 125 MCG TABLET PO SCH (06:03)
[2023-01-11] MEDS: oxyCODONE HCL IR 5 MG TAB (IMMEDIATE RELEASE) PO PRN (06:08)
[2023-01-11] MEDS ORDERED: LANTUS PER UNIT CHARGE SQ ONE (07:55)
[2023-01-11] MEDS ORDERED: INSULIN ASPART PER UNIT CHARGE SC ONE (07:55)
[2023-01-11 08:23] LABS: BUN Creatinine Ratio 21.4 (10-20); Calcium 9.3 mg/dl (8.6-10.3); Creatinine Clr Calc Pharmacy 74.2 ml/min; Est GFR (African American) 83.5 ml/min; Potassium 4.7 mmol/L (3.5-5.1)
[2023-01-11] MEDS: THIAMINE HCL 100 MG in SYRINGE 9 ML IV SCH (09:10)
[2023-01-11] MEDS: FAMOTIDINE 20 MG in SYRINGE 3 ML IV SCH (09:11)
[2023-01-11] MEDS: PANTOprazole 40 MG TAB PO SCH (09:58)
[2023-01-11] MEDS: lisinopril 40 MG TAB PO SCH (09:58)
[2023-01-11] MEDS: GABAPENTIN 100 MG CAP PO SCH ×3 (09:58→20:14)
[2023-01-11] MEDS: FINASTERIDE 5 MG TAB PO SCH (09:58)
--- NOTE | 2023-01-11 10:41 | Anesthesiology Consultation ---
Date of Service January 11, 2023 Assessment & Plan (1) Encounter for pre-operative examination: Chart Review Chart Review: Acceptable Risk for Surgery and Patient NOT seen in Pre Admission Testing Consults Requested none History Surgery Operation Date: 01/11/23 11:55 Proposed Procedures p L4-L5 Decompression and Fusion, L5-S1 Hardware Removal, Spinal Cord Monitoring - Km Ribeiro DO Height/Weight Height: 5 ft 10 in Weight: 79.1 kg Allergies Allergy/AdvReac Type Severity Reaction Status Date / Time succinylcholine Allergy Severe FAMILY HX Verified 01/07/23 15:37 SEE BELOW Iodinated Contrast Media Allergy Intermediate Vomiting Verified 01/07/23 15:37 morphine Allergy Intermediate Vomiting Verified 01/07/23 15:37 meperidine [From Demerol] AdvReac Intermediate hallicinati Verified 01/07/23 15:37 ons Medications Home Medications Medication Instructions Recorded Confirmed Last Taken aspirin 81 mg tablet,delayed 81 mg PO QAM 07/25/19 01/07/23 04/09/20 04:15 release (Adult Low Dose Aspirin) cholecalciferol (vitamin D3) 50 2,000 units PO QAM 07/25/19 01/07/23 04/08/20 06:00 mcg (2,000 unit) capsule cyclobenzaprine 5 mg tablet 5 mg PO TID PRN Muscle Spasm 07/25/19 01/07/23 Unknown lisinopril 40 mg tablet 40 mg PO QAM #90 tabs 07/25/19 01/07/23 04/08/20 06:30 ascorbic acid (vitamin C) 1,000 mg 1,000 mg PO QAM 01/29/20 01/07/23 04/08/20 06:00 tablet BD Insulin Syringe Ultra-Fine 0.3 #200 ea 01/21/21 12/10/22 Unknown mL 31 gauge x 5/16" (insulin syringe-needle U-100) insulin lispro 100 unit/mL 50 unit (0.5 mL) subcut DAILY #2 02/02/22 01/07/23 Unknown subcutaneous solution (Humalog vials U-100 Insulin) glucagon (human recombinant) 1 mg 1 mg IM DIRECTED PRN 06/08/22 01/07/23 Unknown solution for injection Hypoglycemia #1 ea blood sugar diagnostic (OneTouch #400 ea 08/11/22 12/10/22 Unknown Ultra Test strips) insulin glargine 100 unit/mL 23 unit (0.23 mL) subcut QPM 90 08/11/22 01/07/23 Unknown subcutaneous solution (Lantus days #20.7 mL U-100 Insulin) ammonium lactate 12 % lotion 1 applic topical BID PRN Skin 12/10/22 01/07/23 Unknown Irritation levothyroxine 125 mcg tablet 125 mcg PO DAILY #90 tabs 12/10/22 01/07/23 Unknown hydrocodone 5 mg-acetaminophen 325 2 tab PO Q6H PRN pain #20 tabs 01/03/23 01/07/23 Unknown mg tablet finasteride 5 mg tablet 5 mg PO HS 01/07/23 01/07/23 Unknown gabapentin 300 mg capsule 300 mg PO TID 01/07/23 01/07/23 Unknown glucosamine sulfate dipotassium Cl 1 tab PO BID 01/07/23 01/07/23 Unknown 500 mg-chondroitin 400 mg capsule (Glucosamine Sulfate 2 KCL-Chondroitin) tadalafil 5 mg tablet (Cialis) 5 mg PO QAM 01/07/23 01/07/23 Unknown Active Medications Generic Name Dose Route Start Last Admin Trade Name Freq PRN Reason Stop Dose Admin Finasteride 5 mg 01/08/23 09:00 01/11/23 09:58 Finasteride 5 Mg Tab PO 02/07/23 08:59 5 mg DAILY ISHAN Administration Gabapentin 100 mg 01/08/23 09:00 01/11/23 09:58 Gabapentin 100 Mg Cap PO 02/07/23 08:59 Not Given TID ISHAN Hydromorphone HCl 1 mg 01/07/23 15:48 01/11/23 04:39 Hydromorphone Inj 1 Mg/Ml Syringe IV 01/21/23 15:47 1 mg Q3H PRN Administration severe pain (scale 7-10) Famotidine 20 mg/ Syringe 5 mls @ 2.5 mls/min 01/07/23 18:30 01/11/23 09:11 IV 02/06/23 18:29 2.5 mls/min DAILY ISHAN Administration Thiamine HCl 100 mg/ Syringe 10 mls @ 2 mls/min 01/09/23 09:00 01/11/23 09:10 IV 02/08/23 08:59 2 mls/min QAM ISHAN Administration Insulin Aspart 0 units 01/11/23 00:00 01/11/23 06:03 Insulin Aspart Per Unit Charge SC 02/10/23 00:00 1 units Q6 ISHAN Administration Insulin Glargine 23 units 01/10/23 17:30 01/10/23 17:55 Lantus Per Unit Charge SQ 02/09/23 17:29 23 units DAILY@1730 ISHAN Administration Levothyroxine Sodium 125 mcg 01/08/23 06:30 01/11/23 06:03 Levothyroxine Sodium 125 Mcg Tablet PO 02/07/23 06:29 125 mcg DAILYBB ISHAN Administration Lisinopril 40 mg 01/08/23 09:00 01/11/23 09:58 Lisinopril 40 Mg Tab PO 02/07/23 08:59 Not Given QAM ISHAN Lorazepam 0.5 mg 01/07/23 15:48 01/08/23 21:52 Lorazepam 0.5 Mg Tab PO 02/06/23 15:47 0.5 mg Q8H PRN Administration sedation/anxiety Miscellaneous 1 each 01/08/23 00:00 01/11/23 09:07 Order Awaiting Action: Tadalafil [Cialis] 5 Mg Tablet N/A 02/07/23 00:00 Not Given QS ISHAN Miscellaneous 15 - 30 gm 01/09/23 21:45 01/09/23 21:14 Carbohydrates For Hypoglycemia PO 02/08/23 21:44 30 gm UD PRN Administration Hypoglycemia Treatment Oxycodone HCl 5 - 10 mg 01/07/23 15:48 01/11/23 06:08 Oxycodone Hcl Ir 5 Mg Tab (Immediate Release) PO 01/21/23 15:47 10 mg Q4H PRN Administration mod to severe pain Pantoprazole Sodium 40 mg 01/08/23 11:00 01/11/23 09:58 Pantoprazole 40 Mg Tab PO 02/07/23 10:59 40 mg QAM ISHAN Administration Senna/Docusate Sodium 2 tab 01/07/23 21:00 01/10/23 21:22 Docusate Sodium/Senna 50/8.6mg Tab PO 02/06/23 20:59 2 tab HS ISHAN Administration Tamsulosin HCl 0.4 mg 01/07/23 22:20 01/10/23 21:23 Tamsulosin Hcl 0.4 Mg Cap PO 02/06/23 22:19 0.4 mg HS ISHAN Administration Past Medical History Medical History BPH w urinary obs/LUTS Degenerative disc disease Diabetes mellitus type 1 Stable per patient GERD (gastroesophageal reflux disease) HX- stable and controlled Hyperlipidemia Hypertension Hypothyroidism Neurogenic claudication due to lumbar spinal stenosis Nocturia Osteoarthritis Severe back pain Solitary right kidney Functioning well per patient - Stage II CKD (1) Lumbar disc herniation with radiculopathy: Plan: Admitted for uncontrolled/worsening pain failing outpatient management w/ PT/OT as unable to participate Pain control/antiemetics prn/bowel regimen/PT/OT Patient with Tylenol induced liver injury and transaminitis, now improving Do not use any Tylenol or Tylenol containing products at this time Completed NAC protocol Trend CMP Surgery delayed until 01/07 due to continued elevation in LFTs AST/ALT are rapidly downtrending. Hepatitis panel is negative. Discussed risk/benefits of delaying surgery and trend versus aggressive intervention, reasonable to delay for 1 additional day trend CMP, and proceed with surgical intervention if improving. (2) Elevated LFTs: Plan: Patient's AST at 177, ALT at 343, and alk phos of 181 (of note, medication list cyclobenzaprine - could also be contributing, would avoid) Do not use Tylenol at this time, gabapentin decreased to 100mg TID 01/07 ALT peak of 1009, AST peak of 681. Downtrending to 420/40 on 01/10. Tylenol induced as patient was taking 6 tablets of Tylenol at once 3-4 times a day and up to 2 shots of alcohol per day for pain control Etoh negative Hep panel negative RUQ US unremarkable Past Family History Family History Grandfather (Maternal) Heart disease Grandfather (Paternal) Heart disease Grandmother (Maternal) Diabetes Heart disease Family history of reaction to anesthesia PT'S GRANDMOTHER STOPPED BREATHING WITH SUCCINYCHOLINE DURING A PROCEDURE Grandmother (Paternal) Heart disease Uncle Prostate cancer Diabetes -FH of pseudocholinesterase deficiency- pt treated in the past as he has the deficiency and sux should be avoided Past Surgical History Surgical History History of carpal tunnel release of both wrists History of carpal tunnel repair BILAT History of cataract surgery BILAT History of cholecystectomy History of colonoscopy History of esophagogastroduodenoscopy (EGD) 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 Ribeiro. MAC 4. 7.5 ETT. Grade 2 view. Social History Smoking Status: Former smoker tobacco type: cigarettes Smoking cigarettes per day: QUIT 5 YRS AGO Hx Alcohol Use: Yes Alcohol type: hard liquor alcohol intake frequency: holidays/special occasions only Hx Substance Use: No substance use type: does not use Physical Exam Vital Signs Last Vital Signs Temp 36.6 C 01/11/23 07:26 Pulse 91 H 01/11/23 07:26 Resp 18 01/11/23 07:26 BP 129/81 01/11/23 07:26 Pulse Ox 96 01/11/23 07:26 O2 Del Method Room Air 01/11/23 07:26 Testing Laboratory Results 01/10/23 07:59 01/11/23 07:27 PT 10.7 Seconds (9.0-12.0) 01/10/23 07:59 INR 1.0 (0.9-1.1) 01/10/23 07:59 Urine Color Yellow 01/07/23 14:55 Urine Appearance Clear (Clear) 01/07/23 14:55 Urine pH 7.0 (4.5-7.5) 01/07/23 14:55 Ur Specific [place] 1.008 (1.000-1.030) 01/07/23 14:55 Urine Protein Negative (Negative) 01/07/23 14:55 Urine Glucose (UA) Negative (Negative) 01/07/23 14:55 Urine Ketones Negative (Negative) 01/07/23 14:55 Urine Nitrite Negative (Negative) 01/07/23 14:55 Ur Leukocyte Esterase Negative (Negative) 01/07/23 14:55 01/11/23 01/10/23 05:57 23:51 POC Glucose 163 H 99 Electrocardiogram Date: 01/06/23 DICTATED BY:Real Self MD Test Reason : Blood Pressure : / mmHG Vent. Rate : 082 BPM Atrial Rate : 082 BPM P-R Int : 132 ms QRS Dur : 076 ms QT Int : 336 ms P-R-T Axes : 078 043 054 degrees QTc Int : 392 ms Normal sinus rhythm Possible Left atrial enlargement Borderline ECG When compared with ECG of 25-MAR-2020 10:52, No significant change was found Confirmed by Real Self ([id number]) on 01/06/2023 2:17:38 PM Chest X-Ray Date: 01/06/23 XR chest 2V PA/lateral CLINICAL HISTORY: Z01.818. Preoperative evaluation. COMPARISON STUDY: Chest radiograph March 25, 2020. FINDINGS: Lung volumes are normal. Lungs are clear. There is no pneumothorax or pleural effusion. Cardiac size is normal. Mediastinal contours are normal. There is no evidence for pulmonary edema. IMPRESSION: No acute cardiopulmonary findings.
[2023-01-11] MEDS ORDERED: fentaNYL citrate PF 100 MCG/2 ML VIAL IV PRN (10:42)
[2023-01-11] MEDS ORDERED: ATROPINE SULFATE 0.1 MG/ML 10ML SYR IV PRN (10:42)
[2023-01-11] MEDS ORDERED: ONDANSETRON INJ 2 MG/ML 2 ML VIAL IV PRN (10:42)
[2023-01-11] MEDS ORDERED: ePHEDrine sulfate 50 MG/ML AMP IV PRN (10:42)
[2023-01-11] MEDS ORDERED: HYDROmorphone INJ 2 MG/ML SYR/VIAL IV PRN (10:42)
--- NOTE | 2023-01-11 11:55 | History & Physical Bridge Note ---
Date of Service January 11, 2023 History & Physical Bridge Note I have examined the patient, reviewed the History & Physical and in the interval since the performance of the History & Physical I have noted the following changes of clinical significance: Patient continues to have severe radiculopathy of the left lower extremity with progressive neuro deficit. His liver function studies are improving safe to proceed with emergent decompression fusion L4-L5 with hardware removal L5-S1. Hopefully we will be able to reserve some neural function.
[2023-01-11] MEDS ORDERED: ceFAZolin 2,000 MG/15 ML IV PUSH IV ONE (12:09)
[2023-01-11] MEDS ORDERED: BUPIVACAINE/EPINEPHRINE 0.25% 1:200,000 30 ML VIAL ONE (12:12)
[2023-01-11] MEDS ORDERED: ceFAZolin 330 MG/ML 1 GM VIAL ONE (12:12)
[2023-01-11] MEDS ORDERED: FLOSEAL HEMOSTATIC MATRIX 10ML TOP ONE (14:09)
--- NOTE | 2023-01-11 14:13 | Operative Report ---
Post Operative Report Pre & Post Diagnosis Operation Date: 01/11/23 11:55 Pre-Op Diagnosis: Lumbar disc herniation with radiculopathy Post-Op Diagnosis: Lumbar disc herniation with radiculopathy I identified the patient and participated in the time-out.: Yes Procedure Operation Date: 01/11/23 11:55 Actual Procedures #1 removal of posterior instrumentation L5-S1. #2 exploration of fusion L5-S1. #3 lumbar decompression bilateral medial facetectomies and foraminotomies L4-L5 including removal of far extraforaminal disc herniation on the left. #4 poste rior spinal fusion L4-L5 and L5 placement posterior instrumentation L4-5. #6 interbody fusion L4-5 per #7 placement of Spira 15 x 26 mm cage at L4-5. #8 placement locally harvested morselized autograft in the posterior gutters. #9 placement of I factor combined with V toss in the interbody space and posterior lateral gutters. Surgeon Km Ribeiro, Pilot Control Operator Angie Suárez Estimated Blood Loss 100 Findings Consistent with Post-Op Diagnosis Specimens None Indications This is a 49-year-old male who presents with above-mentioned diagnosis. He has severe radiculopathy progressive neuro deficit and is undergoing urgent decompression fusion. Description of Procedure Patient was met with identified informed consent obtained. Patient was then taken to the operative suite underwent a patient placed in a prone position the Jex table top Edy frame. All bony prominences well-padded eyes inspected to ensure no external pressure placed upon them. This point the lumbar spine was prepped and draped in normal sterile fashion. Sharp dissection with the assistance of Bovie cautery was performed down to and exposing the lamina and transverse processes of L4 and instrumentation L5-S1 bilaterally. And then proceeded to move the hardware bilaterally explore the fusion mass noting it to be mature and intact. Then performed complete laminectomy of L4 including bilateral medial facetectomies and foraminotomies with complete facetectomy on the left to expose a foraminal extraforaminal disc herniation severe neural compression. After decompression pedicle screws were placed in L4 and L5 bilaterally with assistance of fluoroscopy and the properly sized mick placed. By way of a trans foraminal approach the left pleat discectomy of L4-L5 was performed endplates curetted to subcortical and bone and a 15 x 26 mm Spira cage with I factor tapped in position. The rods were then locked into final position bilaterally. The transverse processes of L4 and 5 burred to subcortical bleeding bone. I factor amount of the test and locally harvested morselized autograft was placed in the posterior gutters. 15 round TRAN drain inserted. The incision was then closed with 1 Vicryl in the fascia 2-0 Vicryl subcutaneously and 4 Monocryl for final skin closure. Steri-Strips and sterile dressings placed. Patient awakened taken to PACU stable condition. Please note spinal cord monitoring was utilized at the procedure no changes noted. Lastly Angie Suárez was present at the entire surgeon while the patient positioning complex portions of the surgery and final skin closure. I attest to the content of the Intraoperative Record and any orders documented therein. Any exceptions are noted below.
--- NOTE | 2023-01-11 14:53 | Anesthesiology Progress Note ---
Date of Service January 11, 2023 Anesthesia Post Procedure Vital Signs Vital Signs: Temp Pulse Pulse Resp BP BP Pulse Ox 01/11/23 14:45 92 H 11 L 151/85 H 98 01/11/23 14:35 86 10 L 149/91 H 98 01/11/23 14:26 36.5 C 97 H 16 162/94 H 98 01/11/23 10:42 36.4 C L 72 20 129/83 100 01/11/23 07:26 36.6 C 91 H 18 129/81 96 01/10/23 19:15 01/10/23 22:27 36.8 C 84 18 124/73 97 01/10/23 14:57 36.7 C 67 16 138/80 97 O2 Del Method O2 Flow Rate 01/11/23 14:45 Oxymask 6 01/11/23 14:35 Oxymask 10 01/11/23 14:26 Oxymask 10 01/11/23 10:42 Room Air 01/11/23 07:26 Room Air 01/10/23 19:15 Room Air 01/10/23 22:27 Room Air 01/10/23 14:57 Room Air Pain Intensity Left Back: Pain Intensity: 4 Transfer of Care Handoff Completed per policy Notes Mental Status: alert / awake / arousable and participated in evaluation Patient Amnestic to Procedure: Yes Nausea / Vomiting: adequately controlled Pain: adequately controlled and improving with treatment Airway Patency, RR, SpO2: stable & adequate BP & HR: stable & adequate Hydration State: stable & adequate Anesthetic Complications: no major complications apparent and Pt Satisfied with anesthetic care
--- NOTE | 2023-01-11 15:06 | Hospitalist Progress Note ---
Date of Service January 11, 2023 Assessment & Plan (1) Lumbar disc herniation with radiculopathy: Plan: Admitted for uncontrolled/worsening pain due to lumbar disc herniation with radiculopathy failing outpatient management w/ PT/OT as unable to participate - S/P spine surgery today with Dr Ribeiro (2) Elevated LFTs: Plan: Patient with Tylenol induced liver injury with transaminitis LFTs were tr ending downward Do not use any Tylenol or Tylenol containing products at this time Completed NAC protocol - Etoh and hepatitis panel was negative - RUQ US unremarkable ordered repeat LFTs tomorrow (3) Urinary retention: Plan: Patient follows with Nephrology for solitary right kidney 2nd to complications from unilateral hydronephrosis w/ chronic LUTS. PSA <0.5. Hx uncontrolled DM I w/ early CKD Styles placed, draining urine Continue finasteride, Cialis Flomax re-initiated --> monitor for symptoms hypotension/dizziness as had in past (4) Type 1 diabetes mellitus: Plan: Chronic and stable Continue pharmacy glycemic control (5) Hypothyroidism: Plan: Chronic and stable Continue levothyroxine Last TSH wnl 2.819 this year (6) Hypertension: Plan: Stable and chronic Continue lisinopril (7) BPH w urinary obs/LUTS: Plan: Continue styles cath and finasteride for now , flomax as above If he fails his voiding trial then will need a Urology consult Plan Thank you for allowing hospitalist service to participate in the care of Mr Hopson Hospitalist service will follow along -- monitor LFTs on repeat 01/12/23/for any rashes/need for steroids Admission and Anticipated Discharge Date Admission Date: January 07, 2023 Subjective Patient was admitted with Lumbar disc herniation with radiculopathy and had surgery today with Dr Ribeiro. He just returned to the floor from surgery and is groggy. He is easily arousable but fall back asleep. He denies any pain. Review of Systems Review of Systems: Denies current fever, chills, headache, changes in vision, hearing, taste, and smell, chest pain, SOB, cough, abdominal pain, nausea, vomiting, diarrhea, hematemesis, melena, dysuria, hematuria, and recent falls. All systems have been reviewed and are otherwise negative. + fatigue and drowsiness (post op) Physical Exam Constitutional: WD/WN, vitals as above Neck: trachea midline, no thyromegaly Respiratory: normal respiratory effort, lungs clear to auscultation Cardiovascular: RRR, no murmur, no edema Gastrointestinal (Abdomen): normal bowel sounds, soft, nontender, no hepatosplenomegaly Results & Data Results & Data Vital Signs (Past 12 Hours) Vital Signs Temp Pulse Pulse Resp BP Pulse Ox O2 Del Method 01/11/23 14:55 96 H 13 151/86 H 95 Room Air 01/11/23 14:45 92 H 11 L 151/85 H 98 Oxymask 01/11/23 14:35 86 10 L 149/91 H 98 Oxymask 01/11/23 14:26 36.5 C 97 H 16 162/94 H 98 Oxymask 01/11/23 10:42 36.4 C L 72 20 129/83 100 Room Air 01/11/23 07:26 36.6 C 91 H 18 129/81 96 Room Air O2 Flow Rate 01/11/23 14:55 01/11/23 14:45 4 01/11/23 14:35 10 01/11/23 14:26 10 01/11/23 10:42 01/11/23 07:26 Laboratory Results Abnormal lab results 01/10/23 01/10/23 01/11/23 Range/Units 17:23 20:42 05:57 BUN (6-23) mg/dl BUN/Creatinine Ratio (10-20) Glucose (70-99(Fasting)) mg/dl POC Glucose 234 H 183 H 163 H (70-99) mg/dl 01/11/23 01/11/23 01/11/23 Range/Units 07:27 10:51 14:29 BUN 24 H (6-23) mg/dl BUN/Creatinine Ratio 21.4 H (10-20) Glucose 183 H (70-99(Fasting)) mg/dl POC Glucose 163 H 156 H (70-99) mg/dl PG Care Time/CCT Total # of Minutes Spent Total Time Spent with Patient: Total time spent is greater than 50% in coordination of care (as documented) at patient's floor/unit and/or counseling patient: Coding Level of Care Code 45276 SUB INP/OBS CARE 2/35MIN Diagnoses Lumbar disc herniation with radiculopathy M51.16 Elevated LFTs R79.89 Urinary retention R33.9 Type 1 diabetes mellitus E10.9 Hypothyroidism E03.9 Hypertension I10 BPH w urinary obs/LUTS N40.1; N13.8
--- NOTE | 2023-01-11 15:15 | Fluoroscopy Report ---
INTRAOPERATIVE RADIOGRAPHS CLINICAL HISTORY: Lumbar spinal fusion surgery. Fluoro time: 10 seconds. Exposure: 7.28 mGy FINDINGS: 2 spot fluoroscopic views of the lumbar spine are presented. There has been discectomy at L 4-L5 and L5-S1 with laminectomy and posterior fusion at L4-L5. Interpedicular screws are present at b oth levels. The orthopedic hardware appears intact. IMPRESSION: Intraoperative images from lumbar spinal fusion surgery as above. Electronically signed by: Aristeo Velásquez M.D. 01/11/2023 3:14 PM
[2023-01-11] MEDS ORDERED: DO NOT ADMINISTER FLU VACCINE PRN (15:20)
[2023-01-11] MEDS ORDERED: FAMOTIDINE 20 MG TAB PO PRN (15:20)
[2023-01-11] MEDS ORDERED: LORazepam 2 MG/1 ML VIAL IV PRN (15:20)
[2023-01-11] MEDS ORDERED: NALOXONE HCL 0.4 MG/1 ML VIAL/CARP IV PRN (15:20)
[2023-01-11] MEDS ORDERED: ONDANSETRON 4 MG OD TAB PO PRN (15:20)
[2023-01-11] MEDS ORDERED: DO NOT ADMINISTER PNEUMOCOCCAL VACCINE PRN (15:20)
[2023-01-11] MEDS ORDERED: METOCLOPRAMIDE HCL INJ 5 MG/ML 2 ML VIAL IV PRN (15:20)
[2023-01-11] MEDS ORDERED: diphenhydrAMINE Capsule 25 MG CAP PO PRN (15:20)
[2023-01-11] MEDS ORDERED: HYDROmorphone INJ 0.5 MG/0.5 ML SYR IV PRN (15:20)
[2023-01-11] MEDS ORDERED: PROMETHAZINE HCL 12.5 MG in SODIUM CHLORIDE 0.9% 50 ML IV PRN (15:20)
[2023-01-11] MEDS ORDERED: bisacodyL 10 MG SUPP PR PRN (15:20)
[2023-01-11] MEDS ORDERED: ALUMINUM/MAGNESIUM SUSP 30 ML UDC PO PRN (15:20)
[2023-01-11] MEDS ORDERED: traMADol HCL 50 MG TABLET PO PRN (15:20)
[2023-01-11] MEDS ORDERED: SOD PHOSPHATE/SOD BIPHOSPHATE ENEMA 132 ML BTL PR PRN (15:20)
[2023-01-11] MEDS ORDERED: MAGNESIUM HYDROXIDE SUSP 30 ML UDC PO PRN (15:20)
[2023-01-11] MEDS ORDERED: hydrOXYzine HCl 25 MG TAB PO PRN (15:20)
[2023-01-11] MEDS ORDERED: PHARMACY GLYCEMIC MGMT CONSULT PRN (15:20)
[2023-01-11] MEDS: SODIUM CHLORIDE 0.9% 1000ML 1,000 ML IV SCH (15:40)
[2023-01-11] MEDS ORDERED: Nursing to Pharmacy Communication SCH (16:30)
[2023-01-11] MEDS: LANTUS PER UNIT CHARGE SQ SCH (18:15)
[2023-01-11] MEDS: ONDANSETRON INJ 2 MG/ML 2 ML VIAL IV PRN (19:23)
[2023-01-11] MEDS: ceFAZolin 2000MG 2,000 MG/15 ML SYR IV SCH (20:13)
[2023-01-11] MEDS: TAMSULOSIN HCL 0.4 MG CAP PO SCH (20:13)
[2023-01-11] MEDS: DOCUSATE SODIUM/SENNA 50/8.6MG TAB PO SCH (20:13)
[2023-01-11] MEDS: LORazepam 0.5 MG TAB PO PRN (20:23)
[2023-01-11] MEDS ORDERED: DOCUSATE SODIUM/SENNA 50/8.6MG TAB PO SCH (21:00)
[2023-01-12] MEDS: SODIUM CHLORIDE 0.9% 1000ML 1,000 ML IV SCH (01:05)
[2023-01-12] MEDS: ceFAZolin 2000MG 2,000 MG/15 ML SYR IV SCH (04:02)
[2023-01-12] MEDS: LEVOTHYROXINE SODIUM 125 MCG TABLET PO SCH (05:13)
[2023-01-12] MEDS: POLYETHYLENE (MIRALAX) 17 GM PACK PO SCH ×4 (05:14→23:50)
[2023-01-12] MEDS: HYDROmorphone INJ 1 MG/ML SYRINGE IV PRN (05:23)
[2023-01-12 08:42] LABS: Basophils # (auto) 0.06 K/uL (0-0.2); Basophils % (auto) 0.5 %; Eosinophils % (auto) 0.9 %; Hematocrit (blood only) 41.6 % (42.0-52.0); Hemoglobin 14.2 g/dl (14.0-18.0); Immature Granulocytes # (auto) 0.06 K/uL (0.01-0.20); Immature Granulocytes % (auto) 0.5 %; Lymphocytes # (auto) 1.85 K/uL (1.2-3.4); Lymphocytes % (auto) 16.4 %; Mean Corpuscular Hemoglobin 30.5 pg (25.0-34.0); Mean Corpuscular Hgb Conc 34.1 g/dL (32.0-36.0); Mean Corpuscular Volume 89.5 fL (80.0-100.0); Mean Platelet Volume 10.9 fL (9.4-12.4); Monocytes % (auto) 12.4 %; Neutrophils # (auto) 7.81 K/uL (1.40-6.50); Neutrophils % (auto) 69.3 %; Platelet Count 254 K/uL (130-400); RDW Coefficient of Variation 12.8 % (11.5-14.5); RDW Standard Deviation 42.1 fL (36.4-46.3); Red Blood Count 4.65 M/uL (4.70-6.10); White Blood Count 11.28 K/ul (4.8-10.8)
[2023-01-12] MEDS ORDERED: NovoLIN-N (NPH) PER UNIT CHARGE SQ ONE (08:45)
[2023-01-12] MEDS: INSULIN ASPART PER UNIT CHARGE SC SCH ×4 (09:13→21:17)
[2023-01-12] MEDS: THIAMINE HCL 100 MG in SYRINGE 9 ML IV SCH (09:16)
[2023-01-12] MEDS: dexAMETHasone 6 MG in SYRINGE 0 ML IV SCH (09:16)
[2023-01-12] MEDS: GABAPENTIN 100 MG CAP PO SCH ×3 (09:23→21:15)
[2023-01-12] MEDS: lisinopril 40 MG TAB PO SCH (09:23)
[2023-01-12] MEDS: FINASTERIDE 5 MG TAB PO SCH (09:24)
[2023-01-12] MEDS: PANTOprazole 40 MG TAB PO SCH (09:24)
[2023-01-12] MEDS: oxyCODONE HCL IR 5 MG TAB (IMMEDIATE RELEASE) PO PRN ×3 (09:28→21:16)
[2023-01-12] MEDS: FAMOTIDINE 20 MG in SYRINGE 3 ML IV SCH (09:29)
[2023-01-12 09:34] LABS: Albumin Level 3.4 gm/dl (3.4-5.0); BUN Creatinine Ratio 20.6 (10-20); Bilirubin Direct 0.1 mg/dl (0-0.2); Bilirubin,Total 0.7 mg/dl (0.2-1.0); Calcium 8.6 mg/dl (8.6-10.3); Creatinine Clr Calc Pharmacy 77.7 ml/min; Est GFR (African American) 88.2 ml/min; Est GFR (Non-African American) 76.1 ml/min; Potassium 4.5 mmol/L (3.5-5.1); Total Protein 5.8 gm/dl (6.0-8.3)
--- NOTE | 2023-01-12 10:48 | Pharmacy Report ---
Pharmacy Glycemic Short Note 2 - Date of Service January 12, 2023 - Glycemic Short BSG Results (Last 24 hours): 01/11/23 01/11/23 01/11/23 10:51 14:29 15:51 Glucose POC Glucose 163 H 156 H 200 H 01/11/23 01/11/23 01/12/23 17:10 20:56 08:02 Glucose POC Glucose 236 H 237 H 193 H 01/12/23 08:29 Glucose 264 H POC Glucose OUTPATIENT ANTIDIABETIC REGIMEN: * Lantus 23 units Qpm, Humalog - CF 55 / CR with breakfast 5, with lunch 10, with dinner 15 * A1c 7.8% ASSESSMENT: 01/12 * Patient back on T1D meals. BSG yesterday was 156 - 237 mg/dL, and total insulin yesterday was 34 units (Basal 23 units) * FBSG was 193 mg/dL. * Dr. Patel started him on Dexamethasone 6 mg IV today - added NPH 30 units to cover steroid * Will continue Lantus 23 units QDL. CF 28 mg/dL/unit and CF 8 g/unit 01/10 * Patient was NPO at midnight for surgery this AM. Did have an episode of hypoglycemia at bedtime. Parameters were loosened at that time. * Fasting this AM 186 mg/dL- continue 23 units of lantus for now * BSG elevated at lunch- tightened carb ratio back to 9 and goal range to upper end 160 mg/dL. Diet now ordered 01/08 * 57 year old admitted with back pain, type 1 DM. No plans yet for surgery. Pharmacy consulted for glycemic management * Patient received 26 units of insulin yesterday, of which 18 units were basal insulin * Fasting BSG 226 mg/dL - will increase basal today closer to home amount * Will adjust novolog based upon home parameters PLAN FOR INPATIENT GLYCEMIC CONTROL: * Hold outpatient oral diabetes medications * Basal insulin * Lantus 23 units Qpm * Bolus insulin * NovoLog per scale ACHS or Q6hrs while NPO * Goal Range: Low 110 mg/dL - High 160 mg/dL * Correction Factor: 30 mg/dL/unit * Nutritional / Prandial insulin per carb ratio of 1 unit per 9 grams CHO consumed
--- NOTE | 2023-01-12 11:55 | Hospitalist Progress Note ---
Date of Service January 12, 2023 Assessment & Plan (1) Lumbar disc herniation with radiculopathy: Plan: Admitted for uncontrolled/worsening pain due to lumbar disc herniation with radiculopathy failing outpatient management w/ PT/OT as unable to participate - S/P spine surgery 01/11/[address] Ribeiro (2) Elevated LFTs: Plan: Patient with Tylenol induced liver injury with transaminitis LFTs were trending downward Do not use any Tylenol or Tylenol containing products at this time Completed NAC protocol - Etoh and hepatitis panel was negative - RUQ US unremarkable reviewed today's LFTs AST returned to normal range and AP and ALT continue to trend downward (3) Urinary retention: Plan: Patient follows with Nephrology for solitary right kidney 2nd to complications from unilateral hydronephrosis w/ chronic LUTS. PSA <0.5. Hx uncontrolled DM I w/ early CKD Styles placed, draining urine Continue finasteride, Cialis Flomax re-initiated --> monitor for symptoms hypotension/dizziness as had in past (4) Type 1 diabetes mellitus: Plan: Chronic and stable Continue pharmacy glycemic control Reviewed blood sugar results (5) Hypothyroidism: Plan: Chronic and stable Continue levothyroxine Last TSH wnl 2.819 this year (6) Hypertension: Plan: Stable and chronic Continue lisinopril (7) BPH w urinary obs/LUTS: Plan: Continue styles cath and finasteride for now , flomax as above ok to try voiding trial and if fails - then will need a Urology consult Plan Thank you for allowing hospitalist service to participate in the care of Mr Hopson Hospitalist service will follow along -- monitor LFTs on repeat 01/13/23/for any rashes/need for steroids Also reviewed CBC mild leukocytosis possibly acute phase reactant, afebrile Admission and Anticipated Discharge Date Admission Date: January 07, 2023 Subjective Patient was admitted with Lumbar disc herniation with radiculopathy and had surgery 01/11/[address] Ribeiro. Patient states the back pain that he had is now resolved, currently only has incisional pain from surgery. TRAN drain in place with scant amount of serosanguineous drainage. He has been up with PT and OT. Review of Systems Review of Systems: Denies current fever, chills, headache, changes in vision, hearing, taste, and smell, chest pain, SOB, cough, abdominal pain, nausea, vomiting, diarrhea, hematemesis, melena, dysuria, hematuria, and recent falls. All systems have been reviewed and are otherwise negative. Physical Exam Constitutional: WD/WN, vitals as above Neck: trachea midline, no thyromegaly Respiratory: normal respiratory effort, lungs clear to auscultation Cardiovascular: RRR, no murmur, no edema Gastrointestinal (Abdomen): normal bowel sounds, soft, nontender, no hepatosplenomegaly Genitourinary: styles in place draining light colored urine Results & Data Results & Data Vital Signs (Past 12 Hours) Vital Signs Temp Pulse Resp BP BP Pulse Ox O2 Del Method 01/12/23 07:21 36.8 C 85 16 137/61 95 Room Air 01/12/23 02:33 36.7 C 86 18 144/74 H 96 Room Air Laboratory Results Abnormal lab results 01/11/23 01/11/23 01/11/23 Range/Units 14:29 15:51 17:10 WBC (4.8-10.8) K/ul RBC (4.70-6.10) M/uL Hct (42.0-52.0) % Neut # (Auto) (1.40-6.50) K/uL Greer # (Auto) (0.11-0.59) K/uL Sodium (136-145) mmol/L BUN/Creatinine Ratio (10-20) Glucose (70-99(Fasting)) mg/dl POC Glucose 156 H 200 H 236 H (70-99) mg/dl ALT (7-52) U/L Alkaline Phosphatase (34-104) U/L Total Protein (6.0-8.3) gm/dl 01/11/23 01/12/23 01/12/23 Range/Units 20:56 08:02 08:29 WBC (4.8-10.8) K/ul RBC (4.70-6.10) M/uL Hct (42.0-52.0) % Neut # (Auto) (1.40-6.50) K/uL Greer # (Auto) (0.11-0.59) K/uL Sodium 132 L (136-145) mmol/L BUN/Creatinine Ratio 20.6 H (10-20) Glucose 264 H (70-99(Fasting)) mg/dl POC Glucose 237 H 193 H (70-99) mg/dl ALT 176 H (7-52) U/L Alkaline Phosphatase 135 H (34-104) U/L Total Protein 5.8 L (6.0-8.3) gm/dl 01/12/ Range/Units 08:29 WBC 11.28 H (4.8-10.8) K/ul RBC 4.65 L (4.70-6.10) M/uL Hct 41.6 L (42.0-52.0) % Neut # (Auto) 7.81 H (1.40-6.50) K/uL Greer # (Auto) 1.40 H (0.11-0.59) K/uL Sodium (136-145) mmol/L BUN/Creatinine Ratio (10-20) Glucose (70-99(Fasting)) mg/dl POC Glucose (70-99) mg/dl ALT (7-52) U/L Alkaline Phosphatase (34-104) U/L Total Protein (6.0-8.3) gm/dl PG Care Time/CCT Total # of Minutes Spent Total Time Spent with Patient: Total time spent is greater than 50% in coordination of care (as documented) at patient's floor/unit and/or counseling patient: Coding Level of Care Code 45386 SUB INP/OBS CARE 2/35MIN Diagnoses Lumbar disc herniation with radiculopathy M51.16 Elevated LFTs R79.89 Urinary retention R33.9 Type 1 diabetes mellitus E10.9 Hypothyroidism E03.9 Hypertension I10 BPH w urinary obs/LUTS N40.1; N13.8
--- NOTE | 2023-01-12 13:22 | Orthopedic Progress Note ---
Date of Service January 12, 2023 Assessment & Plan (1) Lumbar disc herniation with radiculopathy: Plan: This time we will continue physical therapy monitor his TRAN operatively discharge home in the next few days. Admission and Anticipated Discharge Date Admission Date: January 07, 2023 Subjective Back pain is controlled left leg pain markedly improved Physical Exam Physical Exam: Patient has good strength testing. Sensory intact. Results & Data Vital Signs (Past 12 Hours) Vital Signs Temp Pulse Resp BP BP Pulse Ox O2 Del Method 01/12/23 07:21 36.8 C 85 16 137/61 95 Room Air 01/12/23 02:33 36.7 C 86 18 144/74 H 96 Room Air
[2023-01-12] MEDS: LANTUS PER UNIT CHARGE SQ SCH (17:46)
[2023-01-12] MEDS ORDERED: Nursing to Pharmacy Communication SCH (18:15)
[2023-01-12] MEDS: TAMSULOSIN HCL 0.4 MG CAP PO SCH (21:16)
[2023-01-12] MEDS: DOCUSATE SODIUM/SENNA 50/8.6MG TAB PO SCH (21:16)
[2023-01-13] MEDS ORDERED: INSULIN ASPART PER UNIT CHARGE SC ONE
[2023-01-13] MEDS: LEVOTHYROXINE SODIUM 125 MCG TABLET PO SCH (05:35)
[2023-01-13] MEDS: oxyCODONE HCL IR 5 MG TAB (IMMEDIATE RELEASE) PO PRN ×4 (05:35→23:15)
[2023-01-13] MEDS: POLYETHYLENE (MIRALAX) 17 GM PACK PO SCH ×4 (05:50→23:15)
[2023-01-13 07:01] LABS: Hematocrit (blood only) 38.7 % (42.0-52.0); Hemoglobin 13.1 g/dl (14.0-18.0); Mean Corpuscular Hgb Conc 33.9 g/dL (32.0-36.0); Mean Corpuscular Volume 88.6 fL (80.0-100.0); Mean Platelet Volume 11.4 fL (9.4-12.4); Platelet Count 235 K/uL (130-400); RDW Coefficient of Variation 12.8 % (11.5-14.5); RDW Standard Deviation 41.8 fL (36.4-46.3); Red Blood Count 4.37 M/uL (4.70-6.10); White Blood Count 9.46 K/ul (4.8-10.8)
[2023-01-13 07:26] LABS: Albumin Globulin Ratio 1.3 (0.9-2); Albumin Level 3.2 gm/dl (3.4-5.0); BUN Creatinine Ratio 26.3 (10-20); Bilirubin Direct 0.1 mg/dl (0-0.2); Bilirubin,Total 0.6 mg/dl (0.2-1.0); Calcium 8.8 mg/dl (8.6-10.3); Creatinine Clr Calc Pharmacy 87.5 ml/min; Est GFR (African American) 101.9 ml/min; Est GFR (Non-African American) 87.9 ml/min; Globulin 2.5 gm/dl (2.5-4.0); Potassium 4.2 mmol/L (3.5-5.1); Total Protein 5.7 gm/dl (6.0-8.3)
--- NOTE | 2023-01-13 08:27 | Orthopedic Progress Note ---
Date of Service January 13, 2023 Assessment & Plan (1) Lumbar disc herniation with radiculopathy: Plan: We will continue physical therapy monitor his TRAN output anticipate discharge home tomorrow. Admission and Anticipated Discharge Date Admission Date: January 07, 2023 Subjective Patient's back pain is controlled leg pain markedly improved Physical Exam Physical Exam: Patient is good strength testing. Appears comfortable. Results & Data Vital Signs (Past 12 Hours) Vital Signs Temp Pulse Resp BP BP Pulse Ox O2 Del Method 01/13/23 07:27 36.6 C 85 16 106/68 98 Room Air 01/12/23 21:13 36.8 C 84 18 123/66 97 Room Air
[2023-01-13] MEDS: THIAMINE HCL 100 MG in SYRINGE 9 ML IV SCH (08:32)
[2023-01-13] MEDS: FAMOTIDINE 20 MG in SYRINGE 3 ML IV SCH (08:32)
[2023-01-13] MEDS: PANTOprazole 40 MG TAB PO SCH (08:33)
[2023-01-13] MEDS: lisinopril 40 MG TAB PO SCH (08:33)
[2023-01-13] MEDS: dexAMETHasone 6 MG in SYRINGE 0 ML IV SCH (08:33)
[2023-01-13] MEDS: FINASTERIDE 5 MG TAB PO SCH (08:33)
[2023-01-13] MEDS: GABAPENTIN 100 MG CAP PO SCH ×3 (08:33→21:26)
[2023-01-13] MEDS ORDERED: NovoLIN-N (NPH) PER UNIT CHARGE SQ ONE (09:00)
[2023-01-13] MEDS: INSULIN ASPART PER UNIT CHARGE SC SCH ×4 (09:09→21:27)
--- NOTE | 2023-01-13 14:36 | Pharmacy Report ---
Pharmacy Glycemic Short Note 2 - Date of Service January 13, 2023 - Glycemic Short BSG Results (Last 24 hours): 01/12/23 01/12/23 01/12/23 17:02 17:07 20:55 Glucose POC Glucose 306 H* 292 H 313 H* 01/12/23 01/12/23 01/13/23 20:56 23:25 06:16 Glucose 140 H POC Glucose 289 H 160 H 01/13/23 01/13/23 08:13 11:57 Glucose POC Glucose 190 H 224 H OUTPATIENT ANTIDIABETIC REGIMEN: * Lantus 23 units Qpm, Humalog - CF 55 / CR with breakfast 5, with lunch 10, with dinner 15 * A1c 7.8% ASSESSMENT: 01/13 * BSG yesterday was 160 - 313 mg/dL, and total insulin yesterday was 85 units (Basal 53 units) * FBSG was 190 mg/dL and lunchtime 224 mg/dL * NPH 30 units to cover steroid and increased Lantus to 26 units HS. CF 20 mg/dL/unit and CF 8 g/unit 01/12 * Patient back on T1D meals. BSG yesterday was 156 - 237 mg/dL, and total insulin yesterday was 34 units (Basal 23 units) * FBSG was 193 mg/dL. * Dr. Patel started him on Dexamethasone 6 mg IV today - added NPH 30 units to cover steroid * Will continue Lantus 23 units QDL. CF 28 mg/dL/unit and CF 8 g/unit 01/10 * Patient was NPO at midnight for surgery this AM. Did have an episode of hypoglycemia at bedtime. Parameters were loosened at that time. * Fasting this AM 186 mg/dL- continue 23 units of lantus for now * BSG elevated at lunch- tightened carb ratio back to 9 and goal range to upper end 160 mg/dL. Diet now ordered 01/08 * 57 year old admitted with back pain, type 1 DM. No plans yet for surgery. Pharmacy consulted for glycemic management * Patient received 26 units of insulin yesterday, of which 18 units were basal insulin * Fasting BSG 226 mg/dL - will increase basal today closer to home amount * Will adjust novolog based upon home parameters PLAN FOR INPATIENT GLYCEMIC CONTROL: * Hold outpatient oral diabetes medications * Basal insulin * Lantus 23 units Qpm * Bolus insulin * NovoLog per scale ACHS or Q6hrs while NPO * Goal Range: Low 110 mg/dL - High 160 mg/dL * Correction Factor: 30 mg/dL/unit * Nutritional / Prandial insulin per carb ratio of 1 unit per 9 grams CHO consumed
--- NOTE | 2023-01-13 17:25 | Hospitalist Progress Note ---
Date of Service January 13, 2023 Assessment & Plan (1) Lumbar disc herniation with radiculopathy: Plan: Admitted for uncontrolled/worsening pain due to lumbar disc herniation with radiculopathy failing outpatient management w/ PT/OT as unable to participate - S/P spine surgery 01/11/[address] Ribeiro (2) Elevated LFTs: Plan: Patient with Tylenol induced liver injury with transaminitis LFTs continue trending downward Do not use any Tylenol or Tylenol containing products at this time Completed NAC protocol - Etoh and hepatitis panel was negative - RUQ US unremarkable reviewed today's LFTs AST returned to normal range and AP and ALT continue to trend downward (3) Urinary retention: Plan: Patient follows with Nephrology for solitary right kidney 2nd to complications from unilateral hydronephrosis w/ chronic LUTS. PSA <0.5. Hx uncontrolled DM I w/ early CKD Styles placed, draining urine Continue finasteride, Cialis Flomax re-initiated --> monitor for symptoms hypotension/dizziness as had in past (4) Type 1 diabetes mellitus: Plan: Chronic and stable (5) Hypothyroidism: Plan: Chronic and stable Continue levothyroxine Last TSH wnl 2.819 this year (6) Hypertension: Plan: Stable and chronic Continue lisinopril (7) BPH w urinary obs/LUTS: Plan: Continue styles cath and finasteride for now , flomax as above ok to try voiding trial and if fails - then will need a Urology consult Admission and Anticipated Discharge Date Admission Date: January 07, 2023 Subjective Patient seen this afternoon. He is sitting upright in bed eating lunch and states his back pain is much improved and he slept well last night Review of Systems Review of Systems: Denies current fever, chills, headache, changes in vision, hearing, taste, and smell, chest pain, SOB, cough, abdominal pain, nausea, vomiting, diarrhea, hematemesis, melena, dysuria, hematuria, and recent falls. All systems have been reviewed and are otherwise negative. Physical Exam Constitutional: WD/WN, vitals as above Neck: trachea midline, no thyromegaly Respiratory: normal respiratory effort, lungs clear to auscultation Cardiovascular: RRR, no murmur, no edema Gastrointestinal (Abdomen): normal bowel sounds, soft, nontender, no hepatosplenomegaly Results & Data Results & Data Vital Signs (Past 12 Hours) Vital Signs Temp Pulse Resp BP Pulse Ox O2 Del Method 01/13/23 15:00 36.5 C 76 14 111/66 98 Room Air 01/13/23 07:27 36.6 C 85 16 106/68 98 Room Air PG Care Time/CCT Total # of Minutes Spent Total Time Spent with Patient: Total time spent is greater than 50% in coordination of care (as documented) at patient's floor/unit and/or counseling patient: Coding Level of Care Code 07292 SUB INP/OBS CARE 2/35MIN Diagnoses Lumbar disc herniation with radiculopathy M51.16 Elevated LFTs R79.89 Urinary retention R33.9 Type 1 diabetes mellitus E10.9 Hypothyroidism E03.9 Hypertension I10 BPH w urinary obs/LUTS N40.1; N13.8
[2023-01-13] MEDS ORDERED: LANTUS PER UNIT CHARGE SQ SCH ×2 (21:00)
[2023-01-13] MEDS: TAMSULOSIN HCL 0.4 MG CAP PO SCH (21:26)
[2023-01-13] MEDS: DOCUSATE SODIUM/SENNA 50/8.6MG TAB PO SCH (21:26)
[2023-01-14] MEDS ORDERED: INSULIN ASPART PER UNIT CHARGE SC SCH
[2023-01-14] MEDS: LEVOTHYROXINE SODIUM 125 MCG TABLET PO SCH (06:15)
[2023-01-14] MEDS: POLYETHYLENE (MIRALAX) 17 GM PACK PO SCH ×2 (06:15→13:19)
[2023-01-14] MEDS: lisinopril 40 MG TAB PO SCH (08:21)
[2023-01-14] MEDS: FINASTERIDE 5 MG TAB PO SCH (08:21)
[2023-01-14] MEDS: GABAPENTIN 100 MG CAP PO SCH ×2 (08:21→13:25)
[2023-01-14] MEDS: dexAMETHasone 6 MG in SYRINGE 0 ML IV SCH (08:21)
[2023-01-14] MEDS: PANTOprazole 40 MG TAB PO SCH (08:22)
[2023-01-14] MEDS: THIAMINE HCL 100 MG in SYRINGE 9 ML IV SCH (08:23)
[2023-01-14] MEDS: FAMOTIDINE 20 MG in SYRINGE 3 ML IV SCH (08:41)
[2023-01-14] MEDS: oxyCODONE HCL IR 5 MG TAB (IMMEDIATE RELEASE) PO PRN ×2 (08:42→13:29)
[2023-01-14] MEDS: INSULIN ASPART PER UNIT CHARGE SC SCH ×2 (08:43→13:12)
[2023-01-14] MEDS ORDERED: NovoLIN-N (NPH) PER UNIT CHARGE SQ ONE (09:00)
--- NOTE | 2023-01-14 09:06 | Hospitalist Progress Note ---
Date of Service January 14, 2023 Assessment & Plan (1) Lumbar disc herniation with radiculopathy: Plan: Admitted for uncontrolled/worsening pain due to lumbar disc herniation with radiculopathy failing outpatient management w/ PT/OT as unable to participate - S/P spine surgery 01/11/[address] Ribeiro (2) Elevated LFTs: Plan: Patient with Tylenol induced liver injury with transaminitis LFTs continue trending downward Do not use any Tylenol or Tylenol containing products at this time Completed NAC protocol - Etoh and hepatitis panel was negative - RUQ US unremarkable reviewed today's LFTs AST returned to normal range and AP and ALT continue to trend downward Patient to follow up with PCP in a few weeks to have repeat LFTs to make sure have returned to normal (3) Urinary retention: Plan: Patient follows with Nephrology for solitary right kidney 2nd to complications from unilateral hydronephrosis w/ chronic LUTS. PSA <0.5. Hx uncontrolled DM I w/ early CKD Styles placed, draining urine Continue finasteride, Cialis Flomax re-initiated --> monitor for symptoms hypotension/dizziness as had in past (4) Type 1 diabetes mellitus: Plan: Chronic and stable (5) Hypothyroidism: Plan: Chronic and stable Continue levothyroxine Last TSH wnl 2.819 this year (6) Hypertension: Plan: Stable and chronic Continue lisinopril (7) BPH w urinary obs/LUTS: Plan: Continue styles cath and finasteride for now , flomax as above ok to try voiding trial and if fails - then will need a Urology consult Admission and Anticipated Discharge Date Admission Date: January 07, 2023 Subjective Patient seen this morning. He is likely being dicharged home later today. He had not had a BM since befor his surgery and was slightly nauseated this AM. He was given MOM and then had abdominal cramping. Ortho then ordered a fleets enema with a small amount of brown stool. 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 Discussed the need for a good bowel regimen going forward. Review of Systems Review of Systems: Denies current fever, chills, headache, changes in vision, hearing, taste, and smell, chest pain, SOB, cough, abdominal pain, nausea, vomiting, diarrhea, hematemesis, melena, dysuria, hematuria, and recent falls. All systems have been reviewed and are otherwise negative except for any stated above. Physical Exam Constitutional: WD/WN, vitals as above Neck: trachea midline, no thyromegaly Respiratory: normal respiratory effort, lungs clear to auscultation Cardiovascular: RRR, no murmur, no edema Gastrointestinal (Abdomen): normal bowel sounds, soft, nontender, no hepatosplenomegaly Results & Data Results & Data Vital Signs (Past 12 Hours) Vital Signs Temp Pulse Pulse Resp BP Pulse Ox O2 Del Method 01/14/23 08:06 36.6 C 70 15 114/68 96 Room Air 01/13/23 21:24 36.8 C 73 16 122/60 95 Room Air PG Care Time/CCT Total # of Minutes Spent Total Time Spent with Patient: Total time spent is greater than 50% in coordination of care (as documented) at patient's floor/unit and/or counseling patient: Coding Level of Care Code 51617 SUB INP/OBS CARE 2/35MIN Diagnoses Lumbar disc herniation with radiculopathy M51.16 Elevated LFTs R79.89 Urinary retention R33.9 Type 1 diabetes mellitus E10.9 Hypothyroidism E03.9 Hypertension I10 BPH w urinary obs/LUTS N40.1; N13.8
[2023-01-14] MEDS: ONDANSETRON INJ 2 MG/ML 2 ML VIAL IV PRN (09:27)
--- NOTE | 2023-01-14 10:32 | Orthopedic Progress Note ---
Date of Service January 14, 2023 Assessment & Plan (1) Lumbar disc herniation with radiculopathy: Plan: This time we will continue therapy as tolerated. We will advance his bowel regiment. Hopefully discharge home today or tomorrow. Admission and Anticipated Discharge Date Admission Date: January 07, 2023 Subjective Back pain controlled leg pain improved. He is currently struggling with some nausea. Has not had a bowel movement yet. Physical Exam Physical Exam: On exam is good strength testing. Abdomen soft. Results & Data Vital Signs (Past 12 Hours) Vital Signs Temp Pulse Pulse Resp BP BP Pulse Ox 01/14/23 10:24 84 18 113/68 100 01/14/23 09:31 84 20 93/61 L 100 01/14/23 08:06 36.6 C 70 15 114/68 96 O2 Del Method 01/14/23 10:24 Room Air 01/14/23 09:31 Room Air 01/14/23 08:06 Room Air
[2023-01-14] MEDS: LORazepam 0.5 MG TAB PO PRN (12:01)
== END 2023-01-14 15:54 | disposition home or self-care (01) | DRG 454 ==
LOC: ED 10:14 → 3W 13:02